=== PATIENT | female | born 1930 | race Caucasian/White ===

== ENCOUNTER 2016-10-18 07:42 | Emergency (ER) | payer MEDICARE, OTHER ==
[~2016-10-18] VITALS: Ht 162.6 cm; Wt 59.9 kg
[~2016-10-18 07:42] MED LIST: ALENDRONATE SOD70 MG PO; CHERATUSSIN AC S5 ML PO; FOSAMAX70 MG PO; GLUCOS-CHOND 51 EACH PO; KLOR-CON 1010 MEQ PO; LAXATIVE FEMININ5 MG PO; MACROBID 100 M100 MG PO; NORCO 5-325 TA1 EACH PO; ONDANSETRON ODT4 MG SL; PRAVACHOL10 MG PO; PRAVACHOL20 MG PO; PRAVASTATIN SOD20 MG PO; PRILOSEC20 MG PO; RANITIDINE HCL150 MG PO; ROXICET 5-3251 EACH PO; SERTRALINE HCL100 MG PO; SERTRALINE HCL25 MG PO; TENORMIN25 MG PO; TESSALON PERLE100 MG PO; TRAZODONE HCL50 MG PO; ZOFRAN ODT4 MG SL
[2016-10-18] MEDS ORDERED: CALCIUM + D SO1 EACH PO (08:00)
[2016-10-18] MEDS ORDERED: MULTIVITAMINS1 EAC7 PO (08:01)
[2016-10-18] MEDS ORDERED: TYLOPHEN500 MG PO (08:03)
[2016-11-09] MEDS ORDERED: BACTRIM DS TAB1 EACH PO (16:05)
== END 2016-10-18 09:44 | disposition home or self-care (01) ==
LOC: ED 07:42
DX: R26.2 Difficulty in walking, not elsewhere classified (principal); Z76.89 Persons encountering health services in other specified circumstances; I10 Essential (primary) hypertension; Z90.49 Acquired absence of other specified parts of digestive tract; Z88.8 Allergy status to other drugs, medicaments and biological substances; Z79.899 Other long term (current) drug therapy; Z85.048 Personal history of other malignant neoplasm of rectum, rectosigmoid junction, and anus
CPT/HCPCS: 70450; 80053; 81001; 85025; 99284

== ENCOUNTER 2016-10-19 11:45 | Emergency (ER) | payer MEDICARE, OTHER ==
[~2016-10-19] VITALS: Ht 162.6 cm; Wt 59.9 kg
[~2016-10-19 11:45] MED LIST changes: +CALCIUM + D SO1 EACH PO; +MULTIVITAMINS1 EAC7 PO; +TYLOPHEN500 MG PO
[2016-11-09] MEDS ORDERED: BACTRIM DS TAB1 EACH PO (16:05)
== END 2016-10-19 13:52 | disposition home or self-care (01) ==
LOC: ED 11:45
DX: R20.0 Anesthesia of skin (principal); R64 Cachexia; Z85.048 Personal history of other malignant neoplasm of rectum, rectosigmoid junction, and anus; I10 Essential (primary) hypertension; Z90.49 Acquired absence of other specified parts of digestive tract; Z88.6 Allergy status to analgesic agent; Z88.8 Allergy status to other drugs, medicaments and biological substances; Z98.890 Other specified postprocedural states; Z79.899 Other long term (current) drug therapy
CPT/HCPCS: 72100; 73590; 99283

== ENCOUNTER 2016-11-23 08:19 | Emergency (ER) | payer MEDICARE, OTHER ==
[~2016-11-23] VITALS: Ht 162.6 cm; Wt 59.9 kg
[~2016-11-23 08:19] MED LIST changes: +BACTRIM DS TAB1 EACH PO
[2016-11-23] MEDS ORDERED: ZOFRAN ODT4 MG PO (11:28)
[2016-11-24] MEDS ORDERED: PROMETHAZINE HC25 M1 PO (17:12)
== END 2016-11-23 11:43 | disposition home or self-care (01) ==
LOC: ED 08:19
DX: R11.0 Nausea (principal); E86.0 Dehydration; I10 Essential (primary) hypertension; Z85.048 Personal history of other malignant neoplasm of rectum, rectosigmoid junction, and anus; Z90.49 Acquired absence of other specified parts of digestive tract; Z88.6 Allergy status to analgesic agent; Z88.8 Allergy status to other drugs, medicaments and biological substances; Z98.890 Other specified postprocedural states
CPT/HCPCS: 80053; 81001; 85025; 96360; 99283; J7030

== ENCOUNTER 2016-11-24 12:33 | Emergency (ER) | payer MEDICARE, OTHER ==
[~2016-11-24] VITALS: Ht 162.6 cm; Wt 59.9 kg
[~2016-11-24 12:33] MED LIST changes: +ZOFRAN ODT4 MG PO
[2016-11-24] MEDS ORDERED: PROMETHAZINE HC25 M1 PO (17:12)
== END 2016-11-24 17:32 | disposition home or self-care (01) ==
LOC: ED 12:33
DX: R10.9 Unspecified abdominal pain (principal); R11.2 Nausea with vomiting, unspecified; I10 Essential (primary) hypertension; Z90.49 Acquired absence of other specified parts of digestive tract; Z90.89 Acquired absence of other organs; Z88.6 Allergy status to analgesic agent; Z88.8 Allergy status to other drugs, medicaments and biological substances
CPT/HCPCS: 74177; 99284; Q9967

== ENCOUNTER 2016-12-27 13:44 | Emergency (ER) | payer MEDICARE, OTHER ==
[~2016-12-27] VITALS: Ht 162.6 cm; Wt 53.5 kg
[~2016-12-27 13:44] MED LIST changes: +PROMETHAZINE HC25 M1 PO
== END 2016-12-27 16:15 | disposition home or self-care (01) ==
LOC: ED 13:44
DX: R10.32 Left lower quadrant pain (principal); Z85.048 Personal history of other malignant neoplasm of rectum, rectosigmoid junction, and anus; I10 Essential (primary) hypertension; Z90.49 Acquired absence of other specified parts of digestive tract; Z79.82 Long term (current) use of aspirin; Z98.890 Other specified postprocedural states; Z79.899 Other long term (current) drug therapy; Z88.6 Allergy status to analgesic agent; Z88.8 Allergy status to other drugs, medicaments and biological substances
CPT/HCPCS: 80053; 81001; 83690; 85025; 85610; 85730; 96374; 99283; J2405

== ENCOUNTER 2017-02-01 09:27 | Emergency (ER) | payer MEDICARE, OTHER, MEDICAID ==
[~2017-02-01] VITALS: Ht 162.6 cm; Wt 51.3 kg
[2017-02-01] MEDS ORDERED: ULTRAM50 MG PO (10:28)
[2017-02-01] MEDS ORDERED: SERTRALINE HCL100 MG PO (10:29)
[2017-02-01] MEDS ORDERED: VENLAFAXINE HC150 MG PO (10:29)
[2017-02-01] MEDS ORDERED: ZOFRAN4 MG PO (11:01)
== END 2017-02-01 11:10 | disposition home or self-care (01) ==
LOC: ED 09:27
DX: K59.09 Other constipation (principal); Z85.048 Personal history of other malignant neoplasm of rectum, rectosigmoid junction, and anus; Z88.6 Allergy status to analgesic agent; Z90.49 Acquired absence of other specified parts of digestive tract; I10 Essential (primary) hypertension; Z79.899 Other long term (current) drug therapy
CPT/HCPCS: 74020; 99284

== ENCOUNTER 2017-02-14 11:37 | Observation (INO) | payer MEDICARE, OTHER, MEDICAID ==
[~2017-02-14] VITALS: Ht 162.6 cm; Wt 51.3 kg
[~2017-02-14 11:37] MED LIST changes: +ULTRAM50 MG PO; +VENLAFAXINE HC150 MG PO; +ZOFRAN4 MG PO
--- NOTE | 2017-02-14 19:29 | NUR ---
PATIENT TO FLOOR FROM ED, ADMIT FOR PT/OT. PATIENT FX RIGHT PLATELLER IN GLF ATTEMPTING TO GET IN TAXI. RIGHT KNEE NOW IN A BRACE. TYLENOL FOR PAIN CONTROL. VS STABLE. FULL ADMISSION DONE. PATIENT STATES " I AM NOT HUNGRY, I JUST WANT MY TYLENOL AND GO TO SLEEP". HANDOFF TO SHARON CHARGE NURSE.
--- NOTE | 2017-02-14 19:32 | NUR ---
MEDICATED WITH TYLENOL 650MG PO C/O 11/04 R KNEE PAIN
--- NOTE | 2017-02-14 22:10 | NUR ---
UP TO BSC USING 2 STAFF. VOIDED, TOLERATED WELL. L KNEE BRACE IN PLACE, COOP AND APPROPRIATE WITH TRANSFERS, NO FURTHER C/O PAIN.
--- NOTE | 2017-02-14 22:21 | NUR ---
HELPED PT'S RN GET HER TO THE BEDSIDE COMMODE. SHE DID VERY WELL WITH BOTH OF US HELPING HER. CHARTED HER OUTPUT. DID VERY WELL GETTING BACK TO BED WELL WITH HELP. PT RESTING COMFORTABLE. CALL LIGHT AND BEDSIDE TABLE WITHIN REACH.
--- NOTE | 2017-02-15 00:12 | NUR ---
medicated with 2 tylenol 325mg each. c/o left knee pain. up to bscm with 2 person assist. voided. back to bed tolerated well.L knee brace in place
--- NOTE | 2017-02-15 00:26 | NUR ---
HELPED PT'S RN GET HER TO THE BEDSIDE COMMODE. SHE DID VERY WELL. GOT HER BACK TO BED AND AGAIN DID VERY WELL. CHARTED URINE MEASUREMENT. PT IS RESTING COMFORTABLE. CALL LIGHT AND BEDSIDE TABLE IN REACH.
--- NOTE | 2017-02-15 03:21 | NUR ---
HELPED PT'S RN GET HER TO THE BEDSIDE COMMODE. SHE URINATED 200M. WE GOT HER BACK TO BED. SHE NEEDED NO OTHER ASSISTANCE AT THIS TIME. CALL LIGHT AND BEDSIDE TABLE WITHIN REACH.
--- NOTE | 2017-02-15 05:26 | NUR ---
HELPED RN GET PT ON BEDSIDE COMMODE. GOT HER BACK INTO BED. MEASURED URINE AND CHARTED IT. PT SAYS SHE DOES NOT NEED ANYTHING AT THIS TIME. CALL LIGHT AND BEDSIDE TABLE IN HER REACH.
--- NOTE | 2017-02-15 05:35 | NUR ---
Pt currently in bed, eyes closed, resting, no resp distress. bed alarm on, high fall risk precautions. SL intact/patent. Has been medicated 2x per c/o left knee pain, good cms, left knee brace inplace. Pt requires 2 person assist to get up, very cooperative with procedures, alert and follows instructions well. Using call light w/o problems
--- NOTE | 2017-02-15 08:00 | NUR ---
PATIENT UP 2 PERSON ASSIST WITH WALKER TO BS, NEEDS ENCOURAGEMENT. VOIDING WELL. BRACE IN PLACE. LUNG SOUNDS CLEAR. FULL BODY ASSESMENT DONE. PLAN TO WORK WITH PHYSICAL THERAPY AND HAVE EVALUATION DONE TODAY.
--- NOTE | 2017-02-15 08:10 | NUR ---
PATIENT IS EATING BREAKFAST. SHOWER PATIENT LATER TODAY.
--- NOTE | 2017-02-15 10:00 | NUR ---
PATIENT UP TO BSC, LARGE FORMED BOWEL MOVEMENT. ADMINISTERED SUPPOSITORY. TOLERATED BSC WELL. RATES PAIN 6/10 ON PAIN SCALE. STATES " THE TYLENOL HOLDS ME OVER". PROVIDED PATIENT WITH VANTHAO GAGE.
--- NOTE | 2017-02-15 11:55 | NUR ---
PHYSCIAL THERAPY EVAL DONE. PHYSICAL THERAPY REPORTS PAIN OUT OF CONTROL, HOWERVER PATIENT AMBULATED IN ROOM. RECCOMENDS SNF AT DISCHARGE FOR FURTHER STRENGTHENING. UNSAFE TO GO HOME AND LIVE ALONE. .
--- NOTE | 2017-02-15 13:38 | NUR ---
I WAS REQUESTED BY [facility] TO VISIT PT. I FOUND PT TO BE DISCOURAGED, CONFUSED AND BLAMING GOD FOR HER FALL. SHE WAS CONFUSED ABOUT HOW HER FALL HAPPENED, WHO SHE WAS WITH AND THE LOCATION OF THE INJURY. SEE SEEMED IN GREAT PAIN, SEEMED PLEASED THAT I STOPPED BY. SHE TOLD ME THAT SOMEONE ELSE TOLD HER GOD WAS NOT PUNISHING HER, THAT ACCIDENTS HAPPEN TO EVERYONE. SHE TALKED, SHE SEEMED TO BE MORE ACCEPTING. I PRAYED FOR PT, SHE THANKED ME, WILL FOLLOW NEEDED
--- NOTE | 2017-02-15 14:45 | NUR ---
TALKED WITH PT SON WYATT, EXPLAINED THAT HIS MOTHER WAS IN AN OBSERVATION BED AND THAT TECHNICALLY MEDICARE COULD SAY THEY MAY NOT PAY ANYTHING AFTER SHE IS HERE FOR 48 HOURS SHE DOES NOT HAVE A MEDICAL NECESSITY TO BE AN INPT IN THE HOSPITAL. HE STATED UNDERSTANDING AND TOLD ME THEY ARE ATTEMPTING TO FIGURE OUT WHAT THEY ARE GOING TO DO TO HELP MOM OUT.
--- NOTE | 2017-02-15 15:05 | NUR ---
PT SIGNED THE [facility] LETTER AFTER REVIEWING IT WITH ME AND THEN HAVING ME CALL HER SON AND REVIEWED IT PARTIALLY WITH HIM, HE AT THAT POINT SAID IF SHE REVIEWED IT SHE COULD SIGN IT. PT PROVIDED WITH A COPY OF LETTER AND ORIGINAL PLACED IN PT CHART.
--- NOTE | 2017-02-15 16:31 | NUR ---
CLIFF HELPED ME GET HER READY AND INTO THE SHOWER AND MARTHA HELPED ME GET HER OUT OF THE SHOWER. NOW PATIENT IS SITTING UP IN HER CHAIR WAITING FOR DINNER.
--- NOTE | 2017-02-15 18:48 | NUR ---
PATIENT HAD PHYSICAL THERAPY EVALUATION, TOLERATED WELL. TOE-TOUCH TOLERATED. MULTIBPLE BOWEL MOVEMENTS THROUGHUT DAY, VOIDING WELL. TYLENOL MANAGING PAIN WELL. PATIENT EATS SMALL AMOUNTS AT A TIME. BRACE TO BE ON AT ALL TIMES.
--- NOTE | 2017-02-15 19:15 | NUR ---
BEDSIDE REPORT RECEIVED FROM OFF GOING RN. PT RESTING IN BED, DENIES NEEDS AT THIS TIME.
--- NOTE | 2017-02-15 19:28 | NUR ---
WHITEBOARD UPDATED, PATIENT IN BED DOING WELL. ROOM TIDIED.
--- NOTE | 2017-02-15 19:47 | NUR ---
Pt declines Senokot tabs due to frequwncy of loose angie this am/pm. Pt c/o left knee area pain, medicated with tylenol 650mg po. breace in place. IV site left hand not patent, occluded, will restart. pt aware.
--- NOTE | 2017-02-15 19:54 | NUR ---
Dr Grant notified of iv not patent, new orders to dc obtained
--- NOTE | 2017-02-15 20:26 | NUR ---
up to bsc 2 person assist, pt helped more and appears stronger and more steady than yesterday or earlier this am. tolerated well
--- NOTE | 2017-02-15 20:35 | NUR ---
had a soft bm, voided too, back to bed, tolerated well. left leg in place, good cms. improved gait, 2 person assist. Pain med effective, denies any further c/o pain
--- NOTE | 2017-02-15 20:40 | NUR ---
PT UP TO USE BSC WITH 2 PA. PT HAVING LOOSE STOOL. PT ASSISTED BACK TO BED. PT ASSESSMENT COMPLETE. KNEE BRACE IN PLACE. TRACE EDEMA NOTED TO LLE. CMS INTACT. PT DENIES NEEDS AT THIS TIME. CALL LIGHT WITHIN REACH, BED ALARM ACTIVATED.
--- NOTE | 2017-02-15 22:30 | NUR ---
PATIENT STATES SHE NEEDS BED RAIL DOWN BECAUSE IT IS TOUCHING HER. INSTEAD MOVED HER MORE TO THE CENTER OF BED. BED ALARM ON.
--- NOTE | 2017-02-15 23:17 | NUR ---
PT UTILIZES CALL LIGHT, STATES THAT SHE IS WORRIED ABOUT HER KIDS. REASSURANCE PROVIDED. PT STATES THAT SHE "LOST HER SOCK" ASSISTED PT TO PLACE SOCK BACK ON. ENCOURAGED PT TO TRY TO SLEEP. PT STATES AGREEMENT. CALL LIGHT WITHIN PT'S REACH, PT DENIES FURTHER NEEDS.
--- NOTE | 2017-02-16 01:10 | NUR ---
PT RESTING IN BED WITH MASK OVER HER EYES. PT'S HANDS FIDGETING, RUBBING COLLAR BONE AREA. RESPIRATIONS ARE EVEN AND UNLABORED. CALL LIGHT WITHIN PT'S REACH.
--- NOTE | 2017-02-16 01:55 | NUR ---
PATIENT CALLED REPEATEDLY ABOUT GETTING LIGHTS TURNED OFF AT NURSE'S STATION, CONTINUING TO EXPLAIN THAT IT ISN'T POSSIBLE. GOT PATIENT EYE MASK, NOT SUFFICIENT.
--- NOTE | 2017-02-16 02:52 | NUR ---
UP TO BSC WITH 2 PERSON ASSIST, MUCH IMPROVED GAIT AND TOLERANCE THAN YESTERDAY. VOIDED AND HAD SMALL YELLOW COLORED SOFT BM. BACK TO BED, LEG BRACE IN PLACE, GOOD CMS. NO C/O PAIN. EYE MASK GIVEN PT C/O HALLWAY LIGHTS BOTHER HER. WILL REASSESS
--- NOTE | 2017-02-16 03:11 | NUR ---
PT ASSESSMENT COMPLETE. PT DENIES PAIN, NAUSEA, OR SOB. KNEE IMMOBILIZER IN PLACE FOR L KNEE. TRACE EDEMA PRESENT TO LLE. CMS INTACT TO BLES. PT STATES THAT SHE "HAD A BAD NIGHT." UNABLE TO ELABORATE. PT ENCOURAGED TO TRY TO GET SOME MORE SLEEP, PT AGREES. PT ASSISTED TO PUT EYE MASK ON, DENIES OTHER NEEDS AT THIS TIME. CALL LIGHT WITHIN REACH. BED ALARM ACTIVATED.
--- NOTE | 2017-02-16 04:06 | NUR ---
PT RESTING IN BED WITH EYES CLOSED. PT CONTINUES TO FIDGET HANDS. RESPIRATIONS EVEN AND UNLABORED. CALL LIGHT WITHIN REACH.
--- NOTE | 2017-02-16 04:44 | NUR ---
up to bsc, voided clear yellow urine and small soft bm. back to bed c/o l knee area pain, [address] medicated with tylenol 650mg
--- NOTE | 2017-02-16 05:03 | NUR ---
PT RESTLESS THROUGHOUT THE SHIFT. TYLENOL X 2 FOR PAIN TO L KNEE. L KNEE BRACE/IMMOBILIZER IN PLACE, NOT TO BE REMOVED. 1-2 PA TO BSC, PIVOT TRANSFER, NO WEIGHT BEARING TO L EXTREMITY. ALERT, CONFUSED AT TIMES. PT USING CALL LIGHT FREQUENTLY. NO IV ACCESS.
--- NOTE | 2017-02-16 06:23 | NUR ---
NURSE IN ROOM
--- NOTE | 2017-02-16 06:30 | NUR ---
PT UP TO BSC WITH 1 PA AND FWW. PT CONTINUES TO HAVE SOFT STOOL. REPORTS THAT NAUSEA IS WELL CONTROLLED AT THIS TIME. PT WONDERS IF THE DOCTOR WILL COME TO SEE HER TODAY, PT REASSURED THAT DOCTOR WOULD SEE HER LATER. PT ASKING ABOUT HER KIDS, STATES SHE HAS NOT TALKED TO THE IN "DAYS". EXPLAINED TO PT THAT [facility] HAVE BEEN IN CONTACT WITH HER KIDS. PT STATES UNDERSTANDING. PT ASSISSTED BACK TO CHAIR, PILLOW PLACED BEHIND PT'S BACK. CHAIR ALARM IN PLACE. PT STATES THAT SHE IS COMFORTABLE. DENIES OTHER NEEDS AT THIS TIME. CALL LIGHT WITHIN REACH.
--- NOTE | 2017-02-16 07:20 | NUR ---
BEDSIDE HANDOFF REPORT RECEIVED FROM SUPPLY CHAIN DIRECTOR RN. PT SITTING IN CHAIR. PT DENIES NEEDS AT THIS TIME.
--- NOTE | 2017-02-16 08:10 | NUR ---
pt is sitting up in the chair. pt refused breafast tray that was delivered and is requesting scrambed eggs. no other requests at this time.
--- NOTE | 2017-02-16 09:00 | NUR ---
PT RESTING IN BED. PT RATING PAIN 7/10 TO LEFT KNEE. PT ON ROOM AIR, LUNG SOUNDS CLEAR. BOWEL TONES ACTIVE, POOR APPETITE, AT BASELINE. PT WITH LEG BRACE TO LEFT LEG, 2+ EDEMA TO LOWER LEG, NO EDEMA NOTED TO RIGHT LEG, CMS INTACT. PT UP WITH ASSISTANCE X1 WITH FWW. PT ANXIOUS, DISCUSSED PLAN OF CARE WITH PT. PT DENIES OTHER NEEDS AT THIS TIME.
--- NOTE | 2017-02-16 09:10 | NUR ---
CALL DAUGHTER IN LAW [place] TO NOTIFY OF DISCHARGE, VICENTA STATED "WE ARE NOT BRINGING HER HERE, WE DO NOT HAVE ROOM FOR HER HERE". DISCUSSED THAT IT WAS DISCUSSED THAT SHE WAS UNSAFE TO DISCHARGE HOME ALONE. TO CALL ELECTROLYTIC ETCHER TO DISCUSS PLAN OF CARE.
--- NOTE | 2017-02-16 09:20 | NUR ---
DISCUSSED WITH PART TIME RECEPTIONIST THAT SON PEGGY HAD AGREED TO DISCHARGE HOME WITH HIM, SPOKE WITH DAUGHTER IN LAW [place] ABOUT PLAN, AGREEABLE WITH PLAN. FAMILY TO COME TO PROVIDED TRANSPORTATION FOR DISCHARGE. PHYSICAL THERAPIST WORKING WITH PT.
--- NOTE | 2017-02-16 10:11 | NUR ---
PT COMPLAINT OF NAUSEA, PROVIDED CRACKERS AND LEMON SODA. PT SITTING IN WHEEL CHAIR, AWAITING FAMILY FOR DISCHARGE.
--- NOTE | 2017-02-16 10:42 | NUR ---
pt is sitting up in a wheelchair in her room. pt is waiting for her family to show up so she can discharge. no other requests at this time.
== END 2017-02-16 11:20 | disposition home or self-care (01) ==
LOC: ED 11:37 → MS 11:39
PROVIDERS: ADMIT Internal Medicine
DX: S82.002A Unspecified fracture of left patella, initial encounter for closed fracture (principal); I10 Essential (primary) hypertension; M19.90 Unspecified osteoarthritis, unspecified site; K59.09 Other constipation; R53.81 Other malaise; V48.4XXA Person boarding or alighting a car injured in noncollision transport accident, initial encounter; Z79.899 Other long term (current) drug therapy; Z85.048 Personal history of other malignant neoplasm of rectum, rectosigmoid junction, and anus; Z88.8 Allergy status to other drugs, medicaments and biological substances; R29.6 Repeated falls
CPT/HCPCS: 71010; 73502; 73560; 80053; 81001; 85025; 87088; 96360; 96372; 97110; 97162; 97165; 97530; 99285; G0378; G8978; G8979; G8987; G8988; J1650; J7030

== ENCOUNTER 2018-03-23 14:44 | Emergency (ER) | payer MEDICARE, OTHER ==
[~2018-03-23] VITALS: Ht 157.5 cm; Wt 60.3 kg
--- OUTSIDE RECORDS SUMMARY | 2018-03-23 14:46 | XMS ---
PreManage Notification: TATYANA ROLAND Security Retail Receiving Clerk Events No recent Security Events currently on file CRITERIA MET - Group Notification CARE PROVIDERS RYANNE BECERRA [facility] 12/25/2017-Current PHONE: [phone] Bentley Guadalupe Fitting Room Associate/Chief Load Dispatcher 01/25/2018-Current PHONE: [phone] Bentley Guadalupe Primary Care 01/25/2018-Current PHONE: [phone] Derek Zamorano MD PHONE: Unknown Roland has no Care Guidelines for this patient. Ruel VISIT COUNT (12 MO.) 3 MELISSA De La Rosa TOTAL 3 NOTE: Visits indicate total known visits. 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
[2018-03-23] MEDS ORDERED: MISOPROSTOL200 MCG PO (15:09)
[2018-03-23] MEDS ORDERED: SERTRALINE HCL100 MG PO (15:09)
== END 2018-03-23 16:56 | disposition home or self-care (01) ==
LOC: ED 14:44
DX: N93.9 Abnormal uterine and vaginal bleeding, unspecified (principal); I10 Essential (primary) hypertension; G30.9 Alzheimer's disease, unspecified; Z87.891 Personal history of nicotine dependence; Z90.49 Acquired absence of other specified parts of digestive tract; Z88.6 Allergy status to analgesic agent; Z88.8 Allergy status to other drugs, medicaments and biological substances; Z79.899 Other long term (current) drug therapy
CPT/HCPCS: 36415; 80053; 85025; 99284

== ENCOUNTER 2018-06-14 09:11 | Emergency (ER) | payer MEDICARE, OTHER ==
[~2018-06-14] VITALS: Ht 157.5 cm; Wt 60.3 kg
--- OUTSIDE RECORDS SUMMARY | ~2018-06-14 | XMS | Clinical Summary ---
Demographics + + + | Address | [address] | | | [place] [address] | + + + | Home Phone [...] + | Author | [facility] | | | and Valer[place] | + + + | Organization | [facility] | | | and [...] [place], | | | | | [place] [address] | | + + + + + | Rahul Love Sr | ECON | [address] | | | | | [place] | | | | | [address] | | + + + + + Care Team Providers + +------+ + | Care Real Estate Internship Name | Role | Phone | + +------+ + | John Del Cid MD | PP | | + +------+ + Allergies + [...] + +---------+ + | Alcohol Use | Drinks/We | oz/Week | Comments | | | ek | | | + + +---------+ + | No [...] Filed Vital Signs + + + + | Vital Sign | Reading | Time Taken | + + + + | Blood Pressure | 145/65 | 10/10/20132108 PDT | + + + + | Pulse | 92 | 10/10/20132108 PDT | + + + + | Temperature | 37.3 C (99.1 F) | 10/10/20131930 PDT | + + + + | Respiratory Rate | 14 | 10/10/20132108 PDT | + + + + | Oxygen Saturation | 98% | 10/10/20132108 PDT | + + + + | Inhaled Oxygen | - | - | | Concentration | | | + + + + | Weight | 54.9 kg (121 lb) | 10/10/20131930 PDT | + + + + | Height | 162.6 cm (5' 4") | 10/10/20131930 PDT | + + + + | Body Mass Index | 20.77 | 10/10/20131930 PDT | + + + + Plan of Treatment + + + + + | Health Maintenance | Due Date | Last Done | Comments | + + + + + | Vaccine: | | | | | Dtap/Tdap/Td (1 - | 1 | | | | Tdap) | | | | + + + + + | Vaccine: Zoster (1 | | | | | of 2) | 2 | | | + + + + + | Vaccine: | | | | | Pneumococcal 65+ | 7 | | | | Low/Medium Risk (1 | | | | | of 2 - PCV13) | | | | + + + + + | Vaccine: Influenza | | | | | (Season Ended) | 9 | | | + + [...] +--------+ +---------+--------+ | MEDICARE | MEDICA | [id number] | 06/25/18 | [phone] | | Medica | | | RE | | 97-Pre | 5 | | re | | | PART A | | sent | | | | | | AND B | | | | | | + +--------+ +--------+ +---------+--------+ | COMMERCIAL GENERIC | BH | [id number] | | | | Indemn | | [...] | [birth year] | | [address] | | | al/Krishna | | 1931 | [phone] | [place] [address] | | | danielle | | | 5 (Home) | | + +--------+ +--------+ + + Advance Directives Patient has advance care planning documents on file. For more information, please contact:[facility] [place] [address]
--- OUTSIDE RECORDS SUMMARY | ~2018-06-14 | XMS | Clinical Summary ---
Demographics + + + | Address | [address] | | | [place] [address] | + + + | Home Phone [...] + + | Author | [facility] | | | and [place] | + + + | Organization | [facility] | | | and [place] [...] [place], | | | | | [place] [address] | | + + + + + | Rahul Love Sr | ECON | [address] | | | | | [place] | | | | | [address] | | + + + + + Care Team Providers + +------+ + | Care Computer Operations Manager Name | Role | Phone | [...] +--------+ +---------+--------+ | MEDICARE | MEDICA | [id number] | 06/25/18 | [phone] | | Medica | | | RE | | 97-Pre | 5 | | re | | | PART A | | sent | | | | | | AND B | | | | | | + +--------+ +--------+ +---------+--------+ | COMMERCIAL GENERIC | BH | [id number] | | | | Indemn | | [...] | | al/Krishna | | 1931 | [phone] | [place] [address] | | | danielle | | | 5 (Home) | | + +--------+ +--------+ + + Advance Directives Patient has advance care planning documents on file. For more information, please contact:[facility] [place] [address]
[~2018-06-14 09:11] MED LIST changes: +MISOPROSTOL200 MCG PO
--- OUTSIDE RECORDS SUMMARY | 2018-06-14 09:14 | XMS ---
PreManage Notification: TATYANA ROLAND Security Breakfast Manager Events No recent Security Events currently on file CRITERIA MET - Group Notification CARE PROVIDERS RYANNE BECERRA [facility] 12/25/2017-Current PHONE: [phone] Bentley Guadalupe Acetylene Torch Operator/Gas Examiner 01/25/2018-Current PHONE: [phone] Bentley Guadalupe Acetylene Torch Operator/Gas Examiner 01/25/2018-Current PHONE: [phone] Bentley Guadalupe Primary Care 01/25/2018-Current PHONE: [phone] Deerk Zamorano MD PHONE: Unknown Roland has no Care Guidelines for this patient. Ruel VISIT COUNT (12 MO.) [address] [facility] TOTAL 4 NOTE: Visits indicate total known visits. 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 - Alzheimer's disease, unspecified - Abnormal uterine and vaginal bleeding, unspecified - Allergy status to analgesic agent status 01/22/2018 11:33 MELISSA Antonio [place] TYPE: Emergency COMPLAINT: - ABD PAIN DIAGNOSES: - Allergy status to other drugs, medicaments and biological substances status - Essential (primary) hypertension - Other longterm (current) drug therapy - Constipation, unspecified 12/25/2017 08:12 MELISSA [place] TYPE: Emergency COMPLAINT: - ABD PAIN DIAGNOSES: - Essential (primary) hypertension - Other longterm (current) drug therapy - Constipation, unspecified INPATIENT VISIT TRACKING (12 MO.) No inpatient visits to display in this time frame [id number]
== END 2018-06-14 13:39 | disposition home or self-care (01) ==
LOC: ED 09:11
DX: R10.30 Lower abdominal pain, unspecified (principal); I10 Essential (primary) hypertension; G30.9 Alzheimer's disease, unspecified; Z87.891 Personal history of nicotine dependence; Z90.49 Acquired absence of other specified parts of digestive tract; Z88.6 Allergy status to analgesic agent; Z88.8 Allergy status to other drugs, medicaments and biological substances; Z79.899 Other long term (current) drug therapy
CPT/HCPCS: 74177; 80053; 81001; 83690; 85025; 87088; 96360; 99284-25; J7040; Q9967

== ENCOUNTER 2019-01-05 15:52 | Emergency (ER) | payer MEDICARE, OTHER ==
[~2019-01-05] VITALS: Ht 157.5 cm; Wt 61.7 kg
--- OUTSIDE RECORDS SUMMARY | 2019-01-05 15:56 | XMS ---
PreManage Notification: TATYANA ROLAND Security Manifest/Order Organizer Print Orders Events No recent Security Events currently on file CRITERIA MET - DURGAP CARE PROVIDERS RYANNE BECERRA [facility] 12/25/2017-Current PHONE: [phone] Bentley Guadalupe Furnace Attendant/Residential Solar Sales Consultant 06/23/2018-Current PHONE: [phone] Bentley Guadalupe Primary Care 06/23/2018-Current PHONE: [phone] Derek Zamorano MD PHONE: Unknown Roland has no Care Guidelines for this patient. Ruel VISIT COUNT (12 MO.) 4 MELISSA De La Rosa TOTAL 4 NOTE: Visits indicate total known visits. ED/UCC VISIT TRACKING (12 MO.) 01/05/2019 15:53 MELISSA Antonio [place] TYPE: Emergency COMPLAINT: - RECTAL BLEEDING 06/14/2018 09:12 MELISSA Antonio [place] TYPE: Emergency COMPLAINT: - ABD PAIN DIAGNOSES: - Alzheimer's disease, unspecified - Allergy status to analgesic agent status - Allergy status to oth drug/meds/biol subst status - Acquired absence of other specified parts of digestive tract - Personal history of nicotine dependence - Essential (primary) hypertension - Other mcc (current) drug therapy - Lower abdominal pain, unspecified 03/23/2018 14:45 MELISSA Antonio [place] TYPE: Emergency COMPLAINT: - RECTAL BLEEDING DIAGNOSES: - Acquired absence of other specified parts of digestive tract - Essential (primary) hypertension - Personal history of nicotine dependence - Allergy status to oth drug/meds/biol subst status - Hemorrhage of anus and rectum - Other server administrator (current) drug therapy - Alzheimer's disease, unspecified - Abnormal uterine and vaginal bleeding, unspecified - Allergy status to analgesic agent status 01/22/2018 11:33 MELISSA Antonio [place] TYPE: Emergency COMPLAINT: - ABD PAIN DIAGNOSES: - Allergy status to oth drug/meds/biol subst status - Essential (primary) hypertension - Other mcc (current) drug therapy - Constipation, unspecified INPATIENT VISIT TRACKING (12 MO.) No inpatient visits to display in this time frame [id number]
== END 2019-01-05 18:11 | disposition home or self-care (01) ==
LOC: ED 15:52
DX: K62.5 Hemorrhage of anus and rectum (principal); I10 Essential (primary) hypertension; Z87.891 Personal history of nicotine dependence; Z88.8 Allergy status to other drugs, medicaments and biological substances; Z88.6 Allergy status to analgesic agent; Z79.899 Other long term (current) drug therapy
CPT/HCPCS: 80053; 85025; 85610; 85730; 86850; 86900; 86901; 99283

== ENCOUNTER 2019-02-20 22:25 | Inpatient (IN) | payer MEDICARE, OTHER ==
[~2019-02-20] VITALS: Ht 157.5 cm; Wt 58.9 kg
--- OUTSIDE RECORDS SUMMARY | ~2019-02-20 | XMS | Encounter Summary ---
Demographics + + + | Address | [address] | | | [place] [address] | + + + | Home Phone | | + + + | Preferred Language | Unknown | + + + | Marital Status | | + + + | Jain Affiliation | 1077 | + + + | Race | Unknown | + + + | Ethnic Group | Unknown | + + + Author + + + | Author | [facility] | | | and [place] | + + + | Organization | [facility] | | | and [place] | + + + | Address | Unknown | + + + | Phone | Unavailable | + + + Support + + + + + | Name | Relationship | Address | Phone | + + + + + | Scar Deleon | ECON | [address] | | | | | [place], | | | | | [place] [address] | | + + + + + | Rahul Love . | ECON | [address] | | | | | [place] | | | | | [address] | | + + + + + Care Team Providers + +------+ + | Care Irrigator Sprinkling System Name | Role | Phone | + +------+ + PCP | Unavailable | + +------+ + Encounter Details +--------+ + + + + | Date | Type | Department | Care Team | Description | +--------+ + + + + | 08/14/ | Hospital | [facility] | Emanuel Huang | | | 2011 - | Encounter | [facility] CTR [facility] | MD Scar [address] | | | | | [place] [address] | [place] | | | 08/24/ | | [place], [place] | [place] [address] | | | 2011 | | [address] | [phone] | | | | | [phone] | | | +--------+ + + + + Social History + +-------+ +--------+------+ | Tobacco Use | Types | Packs/Day | Years | Date | | | | | Used | | + +-------+ +--------+------+ | Never Assessed | | | | | + +-------+ +--------+------+ + + + | Sex Assigned at | Date Recorded | | | | + + + | Not on file | | + + + + + + + | Job Start Date | Occupation | Industry | + + + + | Not on file | Not on file | Not on file | + + + + + + + + | Travel History | Travel Start | Travel End | + + + + + + | No recent travel history available. | + + documented as of this encounter Progress Notes Baldomero York MD - 08/15/2011 12:42 AM PDTDATE: 08/15/2011 RADIATION ONCOLOGY FOLLOWUP NOTE DIAGNOSIS Anal canal squamous cell carcinoma. FOLLOWUP NOTE: Ms. 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 The patient di d receive 4500 cGy to the regional lymphatics followed by a boost to the anal canal for a t otal dose of 6120 cGy completin g those treatments in 01/2008. The patient does come in [facility] for regular followup. Mariama states that she has done well since we last saw her. She has not had any bleeding in the las t several months. She denies any diarrhea or any discomfort in the area. She de nies any difficulties with urination. She does continue to use anal dilator because of sten osis. PHYSICAL EXAMINATION VITAL SIGNS: Blood pressure 116/66, pulse 72, temperature 37.1 deg C, weight 57.4 kg. GENERAL: The patient is awake, alert and oriented in no apparent distress. LUNGS: Clear to auscultation. HEART: Regular rate and rhythm. ABDOMEN: Soft, nontender, nondistended. No inguinal adenopathy appreciated bilaterally. RECTAL EXAM: The patient did have telangiectasias in the perianal region. She does have philippe stenosis . She did not have any palpable abnormalities of the anus or anal canal or dista l rectum. ASSESSMENT AND PLAN: Ms. Mariama Love is 3 1/2 years out from completion of her adjuvant r adiation t herapy for treatment of her anal canal squamous cell carcinoma. At this time, th ere is no clinical ev idence of recurrence of disease and overall the patient is doing well . She states she does see Dr. Shekhar grimes, her surgeon, 3-4 times per year and does ask if we ca n spread out our appointments even further. I did state that as long as she is seeing Dr. Mahogany lora who is performing a good clinical exam then we c an see her annually. The patient will return in 1 year for further followup. DICTATED BY: Baldomero York MD Radiation Oncology JOB #: [id number] EXT JOB #:[id number] cc: MD Emanuel Sagastume MD Dr. Andrew Bower [place] <Electronically Signed by Baldomero York MD> 09/02/11 1013 documented in this encounter Plan of Treatment Not on filedocumented as of this encounter Procedures + +--------+ + + + | Procedure Name | Priori | Date/Time | Associated Diagnosis | Comments | | | ty | | | | + +--------+ + + + | LIPID PROFILE | Routin | 08/15/2011 | | Results for this | | | e | 10:45 AM | | procedure are in the | | | | PDT | | results section. | + +--------+ + + + | COMPREHENSIVE | Routin | 08/15/2011 | | Results for this | | METABOLIC PANEL | e | 10:45 AM | | procedure are in the | | | | PDT | | results section. | + +--------+ + + + documented in this encounter Results Lipid Profile (08/15/2011 10:45 AM PDT) + + + + + + | Component | Value | Ref Range | Performed | Pathologist | | | | | At | Signature | + + + + + + | Triglycerid | 151 | 35 - 160 mg/dL | [facility] | | | es | | | [facility] | [facility] | | | [facility] | | | | | | CENTER - | | | | | | LABORATORY | | + + + + + + | Cholesterol | 135 (L) | 150 - 200 mg/dL | [facility] | | | | | | [facility] | | | | | | MEDICAL | | | | | | CENTER - | | | | | | LABORATORY | | + + + + + + | HDL | 43 | 29 - 89 mg/dL | [facility] | | | | | | [facility] | | | | | | MEDICAL | | | | | | CENTER - | | | | | | LABORATORY | | + + + + + + | LDL, | 62 | <130 mg/dL | [facility] | | | Calculated | | | [facility] | | | | | | MEDICAL | | | | | | CENTER - | | | | | | LABORATORY | | + + + + + + | Chol/HDL | 3.1Comment: | | [facility] | | | Ratio | | | [facility] | | | | | | MEDICAL | | | | ------- RISK CATEGORY: | | CENTER - | | | | CHOL/HDL * T.CHOL * LDL | | LABORATORY | | | | CHOL * HDL CHOL | | | | | | | | | | | | RATIO DESIRABLE: (M) | | | | | | 4.0-6.7 <200 | | | | | | <130 >50 | | | | | | (F) | | | | | | 3.7-4.2 BORDERLINE:(M) | | | | | | 6.7-7.4 200-240 | | | | | | 130-160 <45 | | | | | | (F) | | | | | | 4.2-5.5 HIGH RISK: (M) | | | | | | >7.4 >240 | | | | | | >160 <35 | | | | | | (F) | | | | | | >5.5 | | | | | | | | | | | | | | | | | | --------- | | | | + + + + + + + + | Specimen | + + | | + + + + + + + | Performing | Address | City/State/Zipcode | Phone Number | | Organization | | | | + + + + + | [facility] | [address] | [place] | [phone] | | [facility] | | [address] | | | - LABORATORY | | | | + + + + + | [facility] | [address] | [place] | | | [facility] | | [address] | | | - LABORATORY | | | | + + + + + Comprehensive Metabolic Panel (08/15/2011 10:45 AM PDT) + + + + + + | Component | Value | Ref Range | Performed | Pathologist | | | | | At | Signature | + + + + + + | Glucose | 94 | 70 - 109 mg/dL | [facility] | | | | | | [facility] | | | | | | MEDICAL | | | | | | CENTER - | | | | | | LABORATORY | | + + + + + + | Calcium | 8.8 | 8.3 - 10.5 | [facility] | | | | | mg/dL | [facility] | | | | | | MEDICAL | | | | | | CENTER - | | | | | | LABORATORY | | + + + + + + | Alkaline | 45 | 40 - 110 IU/L | [facility] | | | Phosphatase | | | [facility] | | | | | | MEDICAL | | | | | | CENTER - | | | | | | LABORATORY | | + + + + + + | AST | 15 | 10 - 42 IU/L | [facility] | | | | | | [facility] | | | | | | MEDICAL | | | | | | CENTER - | | | | | | LABORATORY | | + + + + + + | ALT | 12 | 6 - 45 IU/L | [facility] | | | | | | [facility] | | | | | | MEDICAL | | | | | | CENTER - | | | | | | LABORATORY | | + + + + + + | Bilirubin | 0.6 | 0.2 - 1.0 mg/dL | [facility] | | | Total | | | [facility] | | | | | | MEDICAL | | | | | | CENTER - | | | | | | LABORATORY | | + + + + + + | Total | 5.8 (L) | 6.0 - 7.8 gm/dL | [facility] | | | Protein | | | [facility] | | | | | | MEDICAL | | | | | | CENTER - | | | | | | LABORATORY | | + + + + + + | Albumin | 3.5 | 3.2 - 5.0 gm/dL | [facility] | | | | | | [facility] | | | | | | MEDICAL | | | | | | CENTER - | | | | | | LABORATORY | | + + + + + + | BUN | 11 | 7 - 18 mg/dL | [facility] | | | | | | [facility] | | | | | | MEDICAL | | | | | | CENTER - | | | | | | LABORATORY | | + + + + + + | Creatinine | 0.83 | 0.60 - 1.30 | [facility] | | | | | mg/dL | [facility] | | | | | | MEDICAL | | | | | | CENTER - | | | | | | LABORATORY | | + + + + + + | Estimated | >60Comment: For | >60 mL/min/A | [facility] | | | GFR | -Americans, | | [facility] | | | | please multiply the | | MEDICAL | | | | result by 1.210 | | CENTER - | | | | This is an estimated | | LABORATORY | | | | GFR and is based on a | | | | | | standard adult | | | | | | body mass (A=1.73m2) and | | | | | | serum creatinine | | | | + + + + + + | BUN/Creatin | 13.3 | 12 - 20 | [facility] | | | ine Ratio | | | [facility] | | | | | | MEDICAL | | | | | | CENTER - | | | | | | LABORATORY | | + + + + + + | Na | 138 | 136 - 149 mEq/L | [facility] | | | | | | [facility] | | | | | | MEDICAL | | | | | | CENTER - | | | | | | LABORATORY | | + + + + + + | K | 4.3 | 3.5 - 5.1 mEq/l | [facility] | | | | | | [facility] | | | | | | MEDICAL | | | | | | CENTER - | | | | | | LABORATORY | | + + + + + + | Cl | 107 | 98 - 109 mEq/l | [facility] | | | | | | [facility] | | | | | | MEDICAL | | | | | | CENTER - | | | | | | LABORATORY | | + + + + + + | CO2 | 27 | 24 - 31 mEq/L | [facility] | | | | | | [facility] | | | | | | MEDICAL | | | | | | CENTER - | | | | | | LABORATORY | | + + + + + + | Anion Gap | 8.3 | 6.0 - 17.0 | [facility] | | | | | | [facility] | | | | | | MEDICAL | | | | | | CENTER - | | | | | | LABORATORY | | + + + + + + + + | Specimen | + + | | + + + + + + + | Performing | Address | City/State/Zipcode | Phone Number | | Organization | | | | + + + + + | [facility] | [address] | [place] | [phone] | | [facility] | | [address] | | | - LABORATORY | | | | + + + + + | [facility] | [address] | [place] | | | [facility] | | [address] | | | - LABORATORY | | | | + + + + + documented in this encounter Visit Diagnoses Not on filedocumented in this encounter"
--- OUTSIDE RECORDS SUMMARY | ~2019-02-20 | XMS | Encounter Summary ---
Demographics + + + | Address | [address] | | | [place] [address] | + + + | Home Phone | | + + + | Preferred Language | Unknown | + + + | Marital Status | | + + + | Judaism Affiliation | 1077 | + + + | Race | Unknown | + + + | Ethnic Group | Unknown | + + + Author + + + | Author | [facility] | | | and [place] | + + + | Organization | [facility] | | | and [place] | [...] [place], | | | | | [place] [address] | | + + + + + | Rahul Love . | ECON | [address] | | | | | [place] | | | | | [address] | | + + + + + Care Team Providers + +------+ + | Care Agronomy Professor Name | Role | Phone | + +------+ + PCP | Unavailable | + +------+ + Encounter Details +--------+ + + + + | Date | Type | Department | Care Team | Description | +--------+ + + + + | 12/03/ | Hospital | [facility] | | | | 2007 - | Encounter | MED CTR CANC[facility] | | | | | | CENTER [address] | | | | 12/25/ | | [place], [place] | | | | 2007 | | [address] | | | | | | [phone] | | | +--------+ + + + [...] + + documented as of this encounter Plan of Treatment Not on filedocumented as of this encounter Visit Diagnoses Not on filedocumented in this encounter"
--- OUTSIDE RECORDS SUMMARY | ~2019-02-20 | XMS | Encounter Summary ---
Demographics + + + | Address | [address] | | | [place] [address] | + + + | Home Phone | | + + + | Preferred Language | Unknown | + + + | Marital Status | | + + + | Scientology Affiliation | 1077 | + + + | Race | Unknown | + + + | Ethnic Group | Unknown | + + + Author + + + | Author | [facility] | | | and [place] | + + + | Organization | [facility] | | | and [place]ana [...] [place], | | | | | [place] [address] | | + + + + + | Rahul Love . | ECON | [address] | | | | | [place] | | | | | [address] | | + + + + + Care Team Providers + +------+ + | Care Therapeutic Sales Specialist Name | Role | Phone | + +------+ + PCP | Unavailable | + +------+ + Encounter Details +--------+ + + + + | Date | Type | Department | Care Team | Description | +--------+ + + + + | 02/09/ | Hospital | [facility] | | | | 2010 - | Encounter | MED CTR CANC[facility] | | | | | | CENTER [address] | | | | 02/24/ | | [place] | | | | 2010 | | [address] | | | | | | [phone] | | | +--------+ + + + [...] encounter Progress Notes Baldomero York MD - 02/09/2011 1:08 AM PSTDATE: 02/09/2011 FOLLOWUP NOTE DIAGNOSIS: Anal canal squamous cell carcinoma. FOLLOWUP NOTE: Ms. 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 The patient did receive 4500 cGy to the regional lymphatics, followed by a boost to the anal c anal to a total of 6120 cGy, co mpleting those on 02/16/2008. The patient returns today fo r regular followup. The patient states that overall, she feel that she is doing very well. She states that she did have a repeat colonoscopy by Dr. Azul earlier this fall. He did take a couple of bio psies of abnormal-lo oking areas, which were benign. 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 This did appear to be somewhat friable as well as noted a scar at the top of th e anal canal and some telangiectasias. T he biopsy was taken from the scar area, all of wh ich was negative per the patient. The patient state s that she does have some intermittent hematochezia, maybe once a few times a month, and that is why the colonoscopy was done, bu t no abnormalities were found at that time. She has been using a dilator secondary to an a nal stricture and states that this has made a big difference and that it is easier to have bowel movements and has noted a decrease in the amount of blood she has seen with the easier bowel movements. She denies any diarrhea. Denies any blood in her urine. Denies any vag inal discom fort. PHYSICAL EXAMINATION VITAL SIGNS: Blood pressure 126/76, pulse 56, temperature 36.6 degrees Celsius, weight 61. 9 kg. GENERAL: The patient is awake, alert, and oriented in no apparent distress. LUNGS: Clear to auscultation. HEART: Regular rate and rhythm. ABDOMEN: Soft, nontender, nondistended. The patient does have an incision from previous l aparoscopi c cholecystectomy as well as a midline incision that are all well-healed. No pa lpable abnormalities appreciated. No inguinal adenopathy appreciated. ANAL EXAM: There was some mild thickening of the skin in the perianal region. She does matthews ve a tight anus. It was somewhat difficult to perform a full exam although I was able to p alpate around the an al canal and into the rectum with no palpable abnormalities appreciate d. ASSESSMENT AND PLAN: Ms. Mariama Love is nearing 3 years out from completion of her radiat ion therap y as part of her treatment for anal canal squamous cell carcinoma. At this time , there is no clinica l evidence of recurrence of disease both on exam as well as on endosc opy, and we would like the patie nt to return in 6 months for further followup. The patien t was agreeable to this plan. DICTATED BY: Baldomero York MD Radiation Oncology JOB #: [id number] EXT JOB #:[id number] cc: MD Henri Sagastume MD S. Maynard Bronstein, MD, PHD <Electronically Signed by Baldomero York MD> 02/25/11 0945 documented in this encounter Plan of Treatment Not on filedocumented as of this encounter Visit Diagnoses Not on filedocumented in this encounter"
--- OUTSIDE RECORDS SUMMARY | ~2019-02-20 | XMS | Encounter Summary ---
Demographics + + + | Address | [address] | | | [place] [address] | + + + | Home Phone | | + + + | Preferred Language | Unknown | + + + | Marital Status | | + + + | Anabaptism Affiliation | 1077 | + + + | Race | Unknown | + + + | Ethnic Group | Unknown | + + + Author + + + | Author | [facility] | | | and [place] | + + + | Organization | [facility] | | | and [place] [...] [place], | | | | | [place] [address] | | + + + + + | Rahul Love . | ECON | [address] | | | | | [place], [place] | | | | | [address] | | + + + + + Care Team Providers + +------+ + | Care Steam Turbine Operator Name | Role | Phone | + +------+ + | No, Unknownpcp | PCP | | + +------+ + Encounter Details +--------+ + + + + | Date | Type | Department | Care Team | Description | +--------+ + + + + | 08/04/ | Hospital | [facility] | Emanuel Huang | | | 2012 - | Encounter | MED CTR CANCER | MD Scar [address] | | | | | [place] [address] | [place] [facility] | | | 08/24/ | | [place] | [place] [address] | | | 2012 | | [address] | [phone] | | | | | [phone] | | | +--------+ + + + [...] + | LIPID PROFILE | Routin | 08/04/2012 | | Results for this | | | e | 9:16 AM | | procedure are in the | | | | PDT | | results section. | + +--------+ + + + | COMPREHENSIVE | Routin | 08/04/2012 | | Results for this | | METABOLIC PANEL | e | 9:16 AM | | procedure are in the | | | | PDT | | results section. | + +--------+ + + + documented in this encounter Results Lipid Profile (08/04/2012 9:16 AM PDT) + + + + + + | Component | Value | Ref Range | Performed | Pathologist | | | | | At | Signature | + + + + + + | Triglycerid | 112 | 35 - 160 mg/dL | [facility] | | | es | | | [facility] | | | | | | [facility] | | | | | | CENTER - | | | | | | LABORATORY | | + + + + + + | Cholesterol | 157 | 150 - 200 mg/dL | [facility] | | | | | | [facility] | | | | | | MEDICAL | | | | | | CENTER - | | | | | | LABORATORY | | + + + + + + | HDL | 50 | 29 - 89 mg/dL | [facility] | | | | | | [facility] | | | | | | MEDICAL | | | | | | CENTER - | | | | | | LABORATORY | | + + + + + + | LDL, | 85 | <130 mg/dL | [facility] | | [...] + + + + + | [facility] | [address] | [place] | [phone] | | [facility] | | [address] | | | - LABORATORY | | | | + + + + + | [facility] | [address] | [place] | | | [facility] | | [address] | | | - LABORATORY | | | | + + + + + Comprehensive Metabolic Panel (08/04/2012 9:16 AM PDT) + + + + + + | Component | Value | Ref Range | Performed | Pathologist | | | | | At | Signature | + + + + + + | Glucose | 108 | 70 - 109 mg/dL | [facility] | | | | | | [facility] | | | | | | MEDICAL | | | | | | CENTER - | | | | | | LABORATORY | | + + + + + + | Calcium | 8.9 | 8.3 - 10.5 | [facility] | | | | | mg/dL | [facility] | | | | | | MEDICAL | | | | | | CENTER - | | | | | | LABORATORY | | + + + + + + | Alkaline | 54 | 40 - 110 IU/L | [facility] | | | Phosphatase | | | [facility] | | | | | | MEDICAL | | | | | | CENTER - | | | | | | LABORATORY | | + + + + + + | AST | 18 | 10 - 42 IU/L | [facility] [...] + + + + | Bilirubin | 0.9 | 0.2 - 1.0 mg/dL | [facility] | | | Total | | | [facility] | | | | | | MEDICAL | | | | | | CENTER - | | | | | | LABORATORY | | + + + + + + | Total | 6.2 | 6.0 - 7.8 gm/dL | [facility] | | | Protein | | | [facility] | | | | | | MEDICAL | | | | | | CENTER - | | | | | | LABORATORY | | + + + + + + | Albumin | 3.6 | 3.2 - 5.0 gm/dL | [facility] | | | | | | [facility] | | | | | | MEDICAL | | | | | | CENTER - | | | | | | LABORATORY | | + + + + + + | BUN | 10 | 7 - 18 mg/dL | [facility] | | | | | | [facility] | | | | | | MEDICAL | | | | | | CENTER - | | | | | | LABORATORY | | + + + + + + | Creatinine | 0.76 | 0.60 - 1.30 | [facility] | | | | | mg/dL | [facility] | | | | | | MEDICAL | | | | | | CENTER - | | | | | | LABORATORY | | + + + + + + | Estimated | >60Comment: For | >60 mL/min/A | [facility] | | | GFR | -Americans, | [...] + + + + | BUN/Creatin | 13.2 | 12 - 20 | [facility] | | | ine Ratio | | | [facility] | | [...] + + + + | K | 3.9 | 3.5 - 5.1 mEq/l | [facility] | | | | | | [facility] | | | | | | MEDICAL | | | | | | CENTER - | | | | | | LABORATORY | | + + + + + + | Cl | 103 | 98 - 109 mEq/l | [facility] | | | | | | [facility] | | | | | | MEDICAL | | | | | | CENTER - | | | | | | LABORATORY | | + + + + + + | CO2 | 28 | 24 - 31 mEq/L | [facility] | | | | | | [facility] | | | | | | MEDICAL | | | | | | CENTER - | | | | | | LABORATORY | | + + + + + + | Anion Gap | 10.9 | 6.0 - 17.0 | [facility] | [...] + | [facility] | [address] | [place] | [phone] | | [facility] | | [address] | | | - LABORATORY | | | | + + + + + | [facility] | [address] | [place] | | | [facility] | | [address] | | | - LABORATORY | | | | + + + + + documented in this encounter Visit Diagnoses Not on filedocumented in this encounter"
--- OUTSIDE RECORDS SUMMARY | ~2019-02-20 | XMS | Encounter Summary ---
Demographics + + + | Address | [address] | | | [place] [address] | + + + | Home Phone | | + + + | Preferred Language | Unknown | + + + | Marital Status | | + + + | Restorationism Affiliation | 1077 | + + + | Race | Unknown | + + + | Ethnic Group | Unknown | + + + Author + + + | Author | [facility] | | | and [place] | + + + | Organization | [facility] | | | and Valer[place]ana [...] [place], | | | | | [place] [address] | | + + + + + | Rahul Love . | ECON | [address] | | | | | [place] | | | | | [address] | | + + + + + Care Team Providers + +------+ + | Care Game Agent Name | Role | Phone | + +------+ + PCP | Unavailable | + +------+ + Encounter Details +--------+ + + + + | Date | Type | Department | Care Team | Description | +--------+ + + + + | 08/14/ | Hospital | [facility] | Emanuel Huang | | | 2011 - | Encounter | MED CTR CANCER | MD Scar [address] | | | | | [place] [address] | [place] | | | 08/24/ | | [place], [place] | [place] [address] | | | 2011 | | [address] | [phone] | | | | | [phone] | | | +--------+ + + + [...] in 01/2008. The patient does come in [facility] for regular followup. Mariama states that she [...] Baldomero York MD Radiation Oncology JOB #: [id number] [id number] JOB #:[id number] cc: MD Emanuel Sagastume MD Dr. Andrew Bower [place] <Electronically Signed by Baldomero York MD> 09/02/11 [...] [address] | [place] | [phone] | | [facility] | | [address] | | | - LABORATORY | | | | + + + + + | [facility] | [address] | [place] | | | [facility] | | [address] | | | - LABORATORY | | [...] 11 | 7 - 18 mg/dL | [facility] | | | | | | [facility] | | | | | | MEDICAL | | | | | | CENTER - | | | | | | LABORATORY | | + + + + + + | Creatinine | 0.83 | 0.60 - 1.30 | [facility] | | | | | mg/dL | [facility] | | | | | | MEDICAL | | | | | | CENTER - | | | | | | LABORATORY | | + + + + + + | Estimated | >60Comment: For | >60 mL/min/A | [facility] | | | GFR | -Americans, | [...] + | [facility] | [address] | [place] | [phone] | | [facility] | | [address] | | | - LABORATORY | | | | + + + + + | [facility] | [address] | [place] | | | [facility] | | [address] | | | - LABORATORY | | | | + + + + + documented in this encounter Visit Diagnoses Not on filedocumented in this encounter"
--- OUTSIDE RECORDS SUMMARY | ~2019-02-20 | XMS | Clinical Summary ---
Demographics + + + | Address | [address] | | | [place] [address] | + + + | Home Phone | | + + + | Preferred Language | Unknown | + + + | Marital Status | | + + + | Rastafari Affiliation | 1077 | + + + | Race | Unknown | + + + | Ethnic Group | Unknown | + + + Author + + + | Author | [facility] | | | and Valer[place]ana | + + + | Organization | [facility] | | | and [place]er[place]ana [...] [place], | | | | | [place] [address] | | + + + + + | Rahul Love . | ECON | [address] | | | | | [place] | | | | | [address] | | + + + + + Care Team Providers + +------+ + | Care Clinical Rehab Liaison Name | Role | Phone | + +------+ + | John Del Cid MD | PCP | | + +------+ + Allergies + + + + + + | Active Allergy | Reactions | Severity | Noted | Comments | | | | | Date | | + + + + + + | Naproxen Sodium | Nausea And Vomiting | Medium | 10/11/19 | | | | | | 14 | | + + + + + + | Aspirin | | | 04/22/19 | Vomiting | | | | | 14 | | + + + + + + Medications + + + +---------+------+------+-------+ | Medication | Sig | Dispensed | Refills | Star | End | Statu | | | | | | t | Date | s | | | | | | Date | | | + + + +---------+------+------+-------+ | Atenolol (TENORMIN | Take 1/2 tablet by | | 0 | | | Activ | | PO) | mouth 3 times a week | | | | | e | + + + +---------+------+------+-------+ | Calcium | Take 1/2 tablet by | | 0 | | | Activ | | Carbonate-Vitamin D | mouth 2 times daily | | | | | e | | (CALCIUM 600 + D PO) | before meals | | | | | | + + + +---------+------+------+-------+ | CHONDROITIN | Take 500 mg by mouth | | 0 | | | Activ | | SULFATE PO | Daily. | | | | | e | + + + +---------+------+------+-------+ | Glucosamine | Take 1,000 mg by | | 0 | | | Activ | | Sulfate 1000 MG TABS | mouth Daily. | | | | | e | + + + +---------+------+------+-------+ | | Take 1 tablet by | | 0 | | | Activ | | HYDROcodone-acetamin | mouth as needed. | | | | | e | | ophen (LORTAB) | | | | | | | | 7.5-500 mg per | | | | | | | | tablet | | | | | | | + + + +---------+------+------+-------+ | Multiple | Take 1 each by mouth | | 0 | | | Activ | | Vitamins-Minerals | Daily. | | | | | e | | (MULTIVITAMIN PO) | | | | | | | + + + +---------+------+------+-------+ | omeprazole | Take 20 mg by mouth | | 0 | | | Activ | | (PRILOSEC) 20 mg | Daily. | | | | | e | | capsule | | | | | | | + + + +---------+------+------+-------+ | Potassium Chloride | Take 10 mEq by mouth | | 0 | | | Activ | | (KLOR-CON 10 PO) | Three times a week. | | | | | e | + + + +---------+------+------+-------+ | pravastatin | Take 20 mg by mouth | | 0 | | | Activ | | (PRAVACHOL) 20 mg | nightly. | | | | | e | | tablet | | | | | | | + + + +---------+------+------+-------+ | Wheat Dextrin | Take by mouth. | | 0 | | | Activ | | (BENEFIBER DRINK MIX | Powder. 1 by mouth | | | | | e | | PO) | daily as needed | | | | | | + + + +---------+------+------+-------+ | | Take 0.5-1 tablets | 20 | 0 | 08/1 | | Activ | | HYDROcodone-acetamin | by mouth every 4 | tablet | | 6/20 | | e | | ophen (NORCO) 5-325 | hours as needed for | | | 14 | | | | mg per tablet | Pain. | | | | | | + + + +---------+------+------+-------+ Active Problems Not on file Social History + +-------+ +--------+------+ | Tobacco Use | Types | Packs/Day | Years | Date | | | | | Used | | + +-------+ +--------+------+ | Never Assessed | | | | | + +-------+ +--------+------+ + + +---------+ + | Alcohol Use | Drinks/Week | oz/Week | Comments | + + +---------+ + | No | | | | + + +---------+ + + + + | Sex Assigned at [...] recent travel history available. | + + Last Filed Vital Signs + + + + + | Vital Sign | Reading | Time Taken | Comments | + + + + + | Blood Pressure | 145/65 | 10/10/2013 9:09 PM | | | | | PDT | | + + + + + | Pulse | 92 | 10/10/2013 9:09 PM | | | | | PDT | | + + + + + | Temperature | 37.3 C (99.1 F) | 10/10/2013 7:31 PM | | | | | PDT | | + + + + + | Respiratory Rate | 14 | 10/10/2013 9:09 PM | | | | | PDT | | + + + + + | Oxygen Saturation | 98% | 10/10/2013 9:09 PM | | | | | PDT | | + + + + + | Inhaled Oxygen | - | - | | | Concentration | | | | + + + + + | Weight | 54.9 kg (121 lb) | 10/10/2013 7:31 PM | | | | | PDT | | + + + + + | Height | 162.6 cm (5' 4") | 10/10/2013 7:31 PM | | | | | PDT | | + + + + + | Body Mass Index | 20.77 | 10/10/2013 7:31 PM | | | | | PDT | | + + + + + Plan of Treatment + + + + + | Health Maintenance | Due Date | Last Done | Comments | + + + + + | Vaccine: | | | | | Dtap/Tdap/Td (1 - | 3 | | | | Tdap) | | | | + + + + + | Vaccine: Zoster (1 | | | | | of 2) | 2 | | | + + + + + | Vaccine: | | | | | Pneumococcal 65+ (1 | 7 | | | | of 2 - PCV13) | | | | + + + + + | Vaccine: Influenza | | | | | (#1) | 9 | | | + + + + + Results Not on filefrom Last 3 Months Insurance + +--------+ +--------+ +---------+--------+ | Payer | Benefi | Subscriber | Effect | Phone | Address | Type | | | t Plan | ID | aleksandra | | | | | | / | | Dates | | | | | | Group | | | | | | + +--------+ +--------+ +---------+--------+ | MEDICARE | MEDICA | [id number] | 06/25/18 | [phone] | | Medica | | | RE | | 97-Pre | 5 | | re | | | PART A | | sent | | | | | | AND B | | | | | | + +--------+ +--------+ +---------+--------+ | COMMERCIAL GENERIC | BH | [id number] | | | | Indemn | | | COMMER | | 014-Pr | | | ity | | | CIAL | | esent | | | | | | OTHER | | | | | | | | INDEMN | | | | | | | | ITY | | | | | | + +--------+ +--------+ +---------+--------+ + +--------+ +--------+ + + | Guarantor Name | Accoun | Relation to | Date | Phone | Billing Address | | | t Type | Patient | of | | | | | | | | | | + +--------+ +--------+ + + | Mariama Love | Person | Self | [birth year] | [address] | | | al/Fam | | 1931 | [phone] | [place] [address] | | | danielle | | | 5 (Home) | | + +--------+ +--------+ + + Advance Directives + + + + + | Type | Date Recorded | Patient | Explanation | | | | Court Messenger | | + + + + + | Power of | | | | | Sales Performance Manager | | | | + + + + + | Advance | 10/09/2013 7:51 | | | | Directive | PM | | | + + + + +
--- OUTSIDE RECORDS SUMMARY | ~2019-02-20 | XMS | Encounter Summary ---
Demographics + + + | Address | [address] | | | [place] [address] | + + + | Home Phone | | + + + | Preferred Language | Unknown | + + + | Marital Status | | + + + | Caodaism Affiliation | 1077 | + + + | Race | Unknown | + + + | Ethnic Group | Unknown | + + + Author + + + | Author | [facility] | | | and [place]er[place] | + + + | Organization | [facility] | | | and [place]er[place]ana [...] [place], | | | | | [place] [address] | | + + + + + | Rahul Love . | ECON | [address] | | | | | [place] | | | | | [address] | | + + + + + Care Team Providers + +------+ + | Care Tool Dispatcher Name | Role | Phone | + +------+ + PCP | Unavailable | + +------+ + Encounter Details +--------+ + + + + | Date | Type | Department | Care Team | Description | +--------+ + + + + | 10/27/ | Hospital | [facility] | | | | 2008 - | Encounter | MED CTR CANCER | | | | | | CENTER [address] | | | | 11/24/ | | [place] | | | | 2008 | | [address] | | | | | | [phone] | | | +--------+ + + + [...]
--- OUTSIDE RECORDS SUMMARY | ~2019-02-20 | XMS | Encounter Summary ---
Demographics + + + | Address | [address] | | | [place] [address] | + + + | Home Phone | | + + + | Preferred Language | Unknown | + + + | Marital Status | | + + + | Advent Affiliation | 1077 | + + + | Race | Unknown | + + + | Ethnic Group | Unknown | + + + Author + + + | Author | [facility] | | | and [place] | + + + | Organization | [facility] | | | and [place]er[place]ana [...] [place], | | | | | [place] [address] | | + + + + + | Rahul Love . | ECON | [address] | | | | | [place] | | | | | [address] | | + + + + + Care Team Providers + +------+ + | Care Formstone Fitter Name | Role | Phone | + +------+ + PCP | Unavailable | + +------+ + Encounter Details +--------+ + + + + | Date | Type | Department | Care Team | Description | +--------+ + + + + | 01/23/ | Hospital | [facility] | [place], | | | 2007 - | Encounter | MED CTR MED ONC | Scar Diego MD [address] | | | | [address] [place] | [address] [place] | | | 01/30/ | | [place] [address] | [place] [address] | | | 2007 | | [phone] | [phone] | | | | | | | [...]
--- OUTSIDE RECORDS SUMMARY | ~2019-02-20 | XMS | Encounter Summary ---
Demographics + + + | Address | [address] | | | [place] [address] | + + + | Home Phone | | + + + | Preferred Language | Unknown | + + + | Marital Status | | + + + | Mormon Affiliation | 1077 | + + + | Race | Unknown | + + + | Ethnic Group | Unknown | + + + Author + + + | Author | [facility] | | | and [place] | + + + | Organization | [facility] | | | and [place] | [...] [place], | | | | | [place] [address] | | + + + + + | Rahul Love . | ECON | [address] | | | | | [place] | | | | | [address] | | + + + + + Care Team Providers + +------+ + | Care Fruit Peeler Name | Role | Phone | + +------+ + PCP | Unavailable | + +------+ + Encounter Details +--------+ + + + + | Date | Type | Department | Care Team | Description | +--------+ + + + + | 01/25/ | Hospital | [facility] | | | | 2007 - | Encounter | MED CTR CANCER | | | | | | CENTER [address] | | | | 02/24/ | | [place] | | | | 2007 | | [address] | | | | | | [phone] | | | +--------+ + + + [...]
--- OUTSIDE RECORDS SUMMARY | ~2019-02-20 | XMS | Encounter Summary ---
Demographics + + + | Address | [address] | | | [place] [address] | + + + | Home Phone | | + + + | Preferred Language | Unknown | + + + | Marital Status | | + + + | Roman Catholic Affiliation | 1077 | + + + | Race | Unknown | + + + | Ethnic Group | Unknown | + + + Author + + + | Author | [facility] | | | and [place] | + + + | Organization | [facility] | | | and [place]erianoana [...] [place], | | | | | [place] [address] | | + + + + + | Rahul Love . | ECON | [address] | | | | | [place], [place] | | | | | [address] | | + + + + + Care Team Providers + +------+ + | Care Truck Switcher Name | Role | Phone | + +------+ + | No, Unknownpcp | PCP | | + +------+ + Encounter Details +--------+ + + + + | Date | Type | Department | Care Team | Description | +--------+ + + + + | 04/22/ | Abstract | [facility] | Emanuel Huang | | | 2013 | | Conversion Location | MD Scar [address] | | | | | [phone] | [address] | | | | | | [place] [address] | | | | | | [phone] | | | | | | | [...]
--- OUTSIDE RECORDS SUMMARY | ~2019-02-20 | XMS | Clinical Summary ---
Demographics + + + | Address | [address] | | | [place] [address] | + + + | Home Phone | | + + + | Preferred Language | Unknown | + + + | Marital Status | | + + + | Jain Affiliation | 1077 | + + + | Race | Unknown | + + + | Ethnic Group | Unknown | + + + Author + + + | Author | [facility] | | | and [place] | + + + | Organization | [facility] | | | and [place] | [...] [place], | | | | | [place] [address] | | + + + + + | Rahul Love . | ECON | [address] | | | | | [place] | | | | | [address] | | + + + + + Care Team Providers + +------+ + | Care Surveyor Instrument Assistant Name | Role | Phone | [...] +--------+ +---------+--------+ | MEDICARE | MEDICA | [id number] | 06/25/18 | [phone] | | Medica | | | RE | | 97-Pre | 5 | | re | | | PART A | | sent | | | | | | AND B | | | | | | + +--------+ +--------+ +---------+--------+ | COMMERCIAL GENERIC | BH | [id number] | | | | Indemn | | [...] | | al/Fam | | 1931 | [phone] | [place] [address] | | | danielle | | | 5 (Home) | | + +--------+ +--------+ + + Advance Directives + + + + + | Type | Date Recorded | Patient | Explanation | | | | Resident Intern | | + + + + + | Power of | | | | | Protection Consultant | | | | + + + + + | Advance | 10/09/2013 7:51 | | | | Directive | PM | | | + + + + +
--- OUTSIDE RECORDS SUMMARY | ~2019-02-20 | XMS | Encounter Summary ---
Demographics + + + | Address | [address] | | | [place] [address] | + + + | Home Phone | | + + + | Preferred Language | Unknown | + + + | Marital Status | | + + + | Mandaeism Affiliation | 1077 | + + + | Race | Unknown | + + + | Ethnic Group | Unknown | + + + Author + + + | Author | [facility] | | | and Valerianoana | + + + | Organization | [facility] | | | and Valerianoana [...] [place], | | | | | [place] [address] | | + + + + + | Rahul Love . | ECON | [address] | | | | | [place] | | | | | [address] | | + + + + + Care Team Providers + +------+ + | Care Assembler Piano Name | Role | Phone | + +------+ + PCP | Unavailable | + +------+ + Encounter Details +--------+ + + + + | Date | Type | Department | Care Team | Description | +--------+ + + + + | 01/19/ | Hospital | [facility] | Amanda Lombardo | | | 2007 | Encounter | MED CTR EMERGENCY | Judd Shoemaker MD [address] | | | | | [place] [address] | [facility] | | | | | [address] | [place] [address] | | | | | [address] | [phone] | | | | | [phone] | | | +--------+ + + + [...]
--- OUTSIDE RECORDS SUMMARY | ~2019-02-20 | XMS | Encounter Summary ---
Demographics + + + | Address | [address] | | | [place] [address] | + + + | Home Phone | | + + + | Preferred Language | Unknown | + + + | Marital Status | | + + + | Episcopal Affiliation | 1077 | + + + | Race | Unknown | + + + | Ethnic Group | Unknown | + + + Author + + + | Author | [facility] | | | and [place] | + + + | Organization | [facility] | | | and [place]er[place]ana [...] [place], | | | | | [place] [address] | | + + + + + | Rahul Love . | ECON | [address] | | | | | [place] | | | | | [address] | | + + + + + Care Team Providers + +------+ + | Care Buoy Tender Name | Role | Phone | + +------+ + PCP | Unavailable | + +------+ + Encounter Details +--------+ + + + + | Date | Type | Department | Care Team | Description | +--------+ + + + + | 07/22/ | Hospital | [facility] | [place] | | | 2008 | Encounter | MED CTR EMERGENCY | Judd Shoemaker MD [address] | | | | | [place] [address] | [facility] | | | | | [place] [place] | [place] [address] | | | | | [address] | [phone] | | | | | [phone] | | | +--------+ + + + [...]
--- OUTSIDE RECORDS SUMMARY | ~2019-02-20 | XMS | Encounter Summary ---
Demographics + + + | Address | [address] | | | [place] [address] | + + + | Home Phone | | + + + | Preferred Language | Unknown | + + + | Marital Status | | + + + | Judaism Affiliation | 1077 | + + + | Race | Unknown | + + + | Ethnic Group | Unknown | + + + Author + + + | Author | [facility] | | | and [place] | + + + | Organization | [facility] | | | and [place]ana [...] [place], | | | | | [place] [address] | | + + + + + | Rahul Love . | ECON | [address] | | | | | [place] | | | | | [address] | | + + + + + Care Team Providers + +------+ + | Care Client Application Support Specialist Name | Role | Phone | + +------+ + PCP | Unavailable | + +------+ + Encounter Details +--------+ + + + + | Date | Type | Department | Care Team | Description | +--------+ + + + + | 12/10/ | Hospital | [facility] | [place], | | | 2007 - | Encounter | MED CTR OP INFUSION | Scar Diego MD [address] | | | | | [address] | [address] [place] | | | 12/25/ | | [place], [place] | [place] [address] | | | 2007 | | [address] | [phone] | | | | | [phone] | | | +--------+ + + + [...]
--- OUTSIDE RECORDS SUMMARY | ~2019-02-20 | XMS | Encounter Summary ---
Demographics + + + | Address | [address] | | | [place] [address] | + + + | Home Phone | | + + + | Preferred Language | Unknown | + + + | Marital Status | | + + + | Gnosticism Affiliation | 1077 | + + + | Race | Unknown | + + + | Ethnic Group | Unknown | + + + Author + + + | Author | [facility] | | | and [place] | + + + | Organization | [facility] | | | and [place] | [...] [place], | | | | | [place] [address] | | + + + + + | Rahul Love . | ECON | [address] | | | | | [place] | | | | | [address] | | + + + + + Care Team Providers + +------+ + | Care Command And Control Officer Name | Role | Phone | + +------+ + PCP | Unavailable | + +------+ + Encounter Details +--------+ + + + + | Date | Type | Department | Care Team | Description | +--------+ + + + + | 02/25/ | Hospital | [facility] | | | | 2008 - | Encounter | MED CTR CANCER | | | | | | CENTER [address] | | | | 03/27/ | | [place] | | | | 2008 | | [address] | | | | | | [phone] | | | +--------+ + + + [...]
--- OUTSIDE RECORDS SUMMARY | ~2019-02-20 | XMS | Encounter Summary ---
Demographics + + + | Address | [address] | | | [place] [address] | + + + | Home Phone | | + + + | Preferred Language | Unknown | + + + | Marital Status | | + + + | Mormon Affiliation | 1077 | + + + | Race | Unknown | + + + | Ethnic Group | Unknown | + + + Author + + + | Author | [facility] | | | and [place]er[place] | + + + | Organization | [facility] | | | and Valerianoana [...] [place], | | | | | [place] [address] | | + + + + + | Rahul Love . | ECON | [address] | | | | | [place], [place] | | | | | [address] | | + + + + + Care Team Providers + +------+ + | Care Onboarding Specialist Name | Role | Phone | + +------+ + | No, Unknownpcp | PCP | | + +------+ + Encounter Details +--------+ + + + + | Date | Type | Department | Care Team | Description | +--------+ + + + + | 08/04/ | Hospital | [facility] | Emanuel Huang | | | 2012 - | Encounter | MED CTR CANCER | MD Scar [address] | | | | | [place] [address] | [facility] | | | 08/24/ | | [address] [address] [place] | [place] [address] | | | 2012 | | [address] | [phone] | | | | | [phone] | | | +--------+ + + + [...] [address] | [place] | [phone] | | [facility] | | [address] | | | - LABORATORY | | | | + + + + + | [facility] | [address] | [place] | | | [facility] | | [address] | | | - LABORATORY | | [...] 10 | 7 - 18 mg/dL | [facility] | | | | | | [facility] | | | | | | MEDICAL | | | | | | CENTER - | | | | | | LABORATORY | | + + + + + + | Creatinine | 0.76 | 0.60 - 1.30 | [place] | | | | | mg/dL | [facility] | | | | | | MEDICAL | | | | | | CENTER - | | | | | | LABORATORY | | + + + + + + | Estimated | >60Comment: For | >60 mL/min/A | [facility] | | | GFR | -Americans, | | [facility] | | | | please multiply the [...] + | [facility] | [address] | [place] | [phone] | | [facility] | | [address] | | | - LABORATORY | | | | + + + + + | [facility] | [address] | [place] | | | [facility] | | [address] | | | - LABORATORY | | | | + + + + + documented in this encounter Visit Diagnoses Not on filedocumented in this encounter"
--- OUTSIDE RECORDS SUMMARY | ~2019-02-20 | XMS | Encounter Summary ---
Demographics + + + | Address | [address] | | | [place] [address] | + + + | Home Phone | | + + + | Preferred Language | Unknown | + + + | Marital Status | | + + + | Jew Affiliation | 1077 | + + + | Race | Unknown | + + + | Ethnic Group | Unknown | + + + Author + + + | Author | [facility] | | | and [place] | + + + | Organization | [facility] | | | and [...] [place], | | | | | [place] [address] | | + + + + + | Rahul Love . | ECON | [address] | | | | | [place] | | | | | [address] | | + + + + + Care Team Providers + +------+ + | Care Flight Operations Coordinator Name | Role | Phone | + +------+ + PCP | Unavailable | + +------+ + Encounter Details +--------+ + + + + | Date | Type | Department | Care Team | Description | +--------+ + + + + | 06/17/ | Hospital | [facility] | | | | 2008 - | Encounter | MED CTR CANCER | | | | | | CENTER [address] | | | | 06/24/ | | [place] | | | | 2008 | | [address] | | | | | | [phone] | | | +--------+ + + + [...]
--- OUTSIDE RECORDS SUMMARY | ~2019-02-20 | XMS | Encounter Summary ---
Demographics + + + | Address | [address] | | | [place] [address] | + + + | Home Phone | | + + + | Preferred Language | Unknown | + + + | Marital Status | | + + + | Mormon Affiliation | 1077 | + + + | Race | Unknown | + + + | Ethnic Group | Unknown | + + + Author + + + | Author | [facility] | | | and Valer[place] | + + + | Organization | [facility] | | | and [place]er[place]ana [...] [place], | | | | | [place] [address] | | + + + + + | Rahul Love . | ECON | [address] | | | | | [place] | | | | | [address] | | + + + + + Care Team Providers + +------+ + | Care Feeder Worker Power Unit Operator Name | Role | Phone | + +------+ + PCP | Unavailable | + +------+ + Encounter Details +--------+ + + + + | Date | Type | Department | Care Team | Description | +--------+ + + + + | 06/25/ | Hospital | [facility] | | | | 2008 - | Encounter | MED CTR CANCER | | | | | | CENTER [address] | | | | 07/25/ | | [place] | | | | 2008 | | [address] | | | | | | [phone] | | | +--------+ + + + [...]
--- OUTSIDE RECORDS SUMMARY | ~2019-02-20 | XMS | Encounter Summary ---
Demographics + + + | Address | [address] | | | [place] [address] | + + + | Home Phone | | + + + | Preferred Language | Unknown | + + + | Marital Status | | + + + | Mormonism Affiliation | 1077 | + + + | Race | Unknown | + + + | Ethnic Group | Unknown | + + + Author + + + | Author | [facility] | | | and Valer[place] | + + + | Organization | [facility] | | | and [...] [place], | | | | | [place] [address] | | + + + + + | Rahul Love . | ECON | [address] | | | | | [place] | | | | | [address] | | + + + + + Care Team Providers + +------+ + | Care Circus Train Supervisor Name | Role | Phone | + +------+ + PCP | Unavailable | + +------+ + Encounter Details +--------+ + + + + | Date | Type | Department | Care Team | Description | +--------+ + + + + | 10/07/ | Hospital | [facility] | | | | 2009 - | Encounter | MED CTR CANCER | | | | | | CENTER [address] | | | | 10/25/ | | [place] | | | | 2009 | | [address] | | | | | | [phone] | | | +--------+ + + + [...]
--- OUTSIDE RECORDS SUMMARY | ~2019-02-20 | XMS | Encounter Summary ---
Demographics + + + | Address | [address] | | | [place] [address] | + + + | Home Phone | | + + + | Preferred Language | Unknown | + + + | Marital Status | | + + + | Jew Affiliation | 1077 | + + + | Race | Unknown | + + + | Ethnic Group | Unknown | + + + Author + + + | Author | [facility] | | | and Valerianoana | + + + | Organization | [facility] | | | and [...] [place], | | | | | [place] [address] | | + + + + + | Rahul Love . | ECON | [address] | | | | | [place] | | | | | [address] | | + + + + + Care Team Providers + +------+ + | Care Procedural Nurse Name | Role | Phone | + +------+ + PCP | Unavailable | + +------+ + Encounter Details +--------+ + + + + | Date | Type | Department | Care Team | Description | +--------+ + + + + | 12/28/ | Hospital | [facility] | [place], | | | 2007 - | Encounter | MED CTR GENERIC OP | Scar Diego MD [address] | | | | | ERAN DEPT [address] [place] | | | 01/20/ | | [place], | [place] [address] | | | 2007 | | [place] [address] | [phone] | | | | | [phone] | | | +--------+ + + + [...]
--- OUTSIDE RECORDS SUMMARY | ~2019-02-20 | XMS | Encounter Summary ---
Demographics + + + | Address | [address] | | | [place] [address] | + + + | Home Phone [...] Author | [facility] | | | and Valerianoana | + + + | Organization | [facility] | | | and [...] [place], | | | | | [place] [address] | | + + + + + | Rahul Love . | ECON | [address] | | | | | [place] | | | | | [address] | | + + + + + Care Team Providers + +------+ + | Care Director Of Corporate Strategy Name | Role | Phone | + +------+ + PCP | Unavailable | + +------+ + Encounter Details +--------+ + + + + | Date | Type | Department | Care Team | Description | +--------+ + + + + | 08/14/ | Hospital | [facility] | Emanuel Huang | | | 2011 - | Encounter | MED CTR CANCER | MD Scar [address] | | | | | [place] [address] | [address] | | | 08/24/ | | [place], [place] | [place] [address] | | | 2011 | | [address] | [phone] | | | | | [phone] | | | +--------+ + + + [...] in 01/2008. [facility] Mariama states that [...] Baldomero York MD Radiation Oncology JOB #: [id number] EXT JOB #:[id number] cc: MD Emanuel Sagastume MD Dr. Andrew Bower [place] <Electronically Signed by Baldomero York MD> 09/02/11 [...] [address] | [place] | [phone] | | [facility] | | [address] | | | - LABORATORY | | | | + + + + + | [facility] | [address] | [place] | | | [facility] | | [address] | | | - LABORATORY | | [...] 11 | 7 - 18 mg/dL | [facility] | | | | | | [facility] | | | | | | MEDICAL | | | | | | CENTER - | | | | | | LABORATORY | | + + + + + + | Creatinine | 0.83 | 0.60 - 1.30 | [facility] | | | | | mg/dL | [facility] | | | | | | MEDICAL | | | | | | CENTER - | | | | | | LABORATORY | | + + + + + + | Estimated | >60Comment: For | >60 mL/min/A | [facility] | | | GFR | -Americans, | [...] + | [facility] | [address] | [place] | [phone] | | [facility] | | [address] | | | - LABORATORY | | | | + + + + + | [facility] | [address] | [place] | | | [facility] | | [address] | | | - LABORATORY | | | | + + + + + documented in this encounter Visit Diagnoses Not on filedocumented in this encounter"
--- OUTSIDE RECORDS SUMMARY | ~2019-02-20 | XMS | Encounter Summary ---
Demographics + + + | Address | [address] | | | [place] [address] | + + + | Home Phone | | + + + | Preferred Language | Unknown | + + + | Marital Status | | + + + | Church Affiliation | 1077 | + + + | Race | Unknown | + + + | Ethnic Group | Unknown | + + + Author + + + | Author | [facility] | | | and [place]er[place] | + + + | Organization | [facility] | | | and [place] | + + + | Address | Unknown | + + + | Phone | Unavailable | + + + Support + + + + + | Name | Relationship | Address | Phone | + + + + + | Scra Deleon | ECON | [address] | | | | | [place], | | | | | [place] [address] | | + + + + + | Rahul Love . | ECON | [address] | | | | | [place] | | | | | [address] | | + + + + + Care Team Providers + +------+ + | Care Sales Rep Name | Role | Phone | + [...] + + | 10/10/ | Emergency | [facility] | Armin Berger | Abdominal pain | | 2013 | | MED CTR EMERGENCY | MD Chris [address] | (Primary Dx) | | | | CENTER [address] | [address] [facility] | | | | | [place], [place] | [place] [address] | | | | | [address] | [phone] | | | | | [phone] | | | +--------+ + + + [...] + documented in this encounter Discharge Instructions Armin Mendieta MD - 10/10/2013Continue your usual medications and [...] | 1.010 | | | | | [place], | | | | | | [facility], [...] | | | ER staff by the [facility] radiologist on October 10, 2013 at [...] acuity. There is posterior vertebral spondylosis at [id number] level, contributing to at | | least [...] COMPRESSION DEFORMITY OF THE INFERIOR | | [id number] BODY COMPARED WITH STUDIES FROM 2009, BUT OTHERWISE OF UNCERTAINACUITY.5. | | SIMILAR PROMINENT, SERPIGINOUS VESSELS IN THE LEFT PELVIC CAVITY, WHICH MAYBE SEEN WITH | | PELVIC CONGESTION SYNDROME.Preliminary results of this study were reported to the ER | | [facility] on October 10, 2013 at 1 hours.Dictated and Signed | | by: Von [...] | |VERTEBRAL BODY COMPARED WITH STUDIES FROM 2008, BUT OTHERWISE OF UNCERTAIN | |ACUITY. | | | |5. SIMILAR PROMINENT, SERPIGINOUS VESSELS IN THE LEFT PELVIC CAVITY, WHICH MAY | |BE SEEN WITH PELVIC CONGESTION SYNDROME. | | | |Preliminary results of this study were reported to the ER staff [facility] the [facility] | |radiologist on October 10, 2013 at 1 hours. | | | |Dictated and Signed by: Von Bush MD | | Electronically signed: 10/11/2013 12:19 PM | + + + +---------+ + + | Performing | Address | City/State/Zipcode | Phone Number | | Organization | | | | + +---------+ + + | MISCELLANEOUS LAB | | | [phone] | + +---------+ + + | MISCELANIOUS LAB | | | [phone] | + +---------+ + + Lipase (10/10/2013 8:10 PM PDT) + +-------+ + + + | Component | Value | Ref Range | Performed | Pathologist | | | | | At | Signature | + +-------+ + + + | Lipase | 26 | 0 - 60 U/L | [facility] | | | | | | [facility] [...] + | [facility] | [address] | [place] | [phone] | | [facility] | | [address] | | | - LABORATORY | | | | + + + + + | [facility] | [address] | [place] | | | [facility] | | [address] | | | - LABORATORY | | [...] | | | FILTRATION | mL/min/1.73m2 | [facility] | | | [facility] | RATE,ESTIMATED | | MEDICAL | | | | mL/min/1.29j7Qair than | | CENTER - | | [...] | 8.9 | 8.3 - 10.5 | [facility] | | | | | mg/dL | [facility] | | | | | | MEDICAL | | | | | | CENTER - | | | | | | LABORATORY | | + + + + + + | Albumin | 4.0 | 3.2 - 5.0 g/dL | [facility] | | | | | | [facility] | | | | | | [...] + + | Performing | Address | City/State/[facility] | Phone Number | | Organization | | | | + + + + + | [facility] | [address] | [place] | [phone] | | [facility] | | [address] | | | - LABORATORY | | | | + + + + + | [facility] | [address] | [place] | | | [facility] | | [address] | | | - LABORATORY | | [...] | | | | M/uL | [facility] | | | | [...] + | [facility] | [address] | [place] | [phone] | | [facility] | | [address] | | | - LABORATORY | | | | + + + + + | [facility] | [address] | [place] | | | [facility] | | [address] | | | - LABORATORY | | [...] | | | | | 10/10/13 at 2000, For 1 dose | | PM PDT [...] | | | | | 10/10/13 at 2000, For 1 dose | | | | | | + + + +--------+-------+---+ +---------+ +--------+-------+---+ | New Bag | 10/11/19 | 1,000 | 2000 | | | | 14 7:55 | mLs | mL/hr | | | | PM PDT | | | | +---------+ +--------+-------+---+ +---+---+ | | | +---+---+ documented in this encounter
--- OUTSIDE RECORDS SUMMARY | ~2019-02-20 | XMS | Encounter Summary ---
Demographics + + + | Address | [address] | | | [place] [address] | + + + | Home Phone | | + + + | Preferred Language | Unknown | + + + | Marital Status | | + + + | Amish Affiliation | 1077 | + + + | Race | Unknown | + + + | Ethnic Group | Unknown | + + + Author + + + | Author | [facility] | | | and [place]er[place] | + + + | Organization | [facility] | | | and Valerianoana [...] [place], | | | | | [place] [address] | | + + + + + | Rahul Love . | ECON | [address] | | | | | [place] | | | | | [address] | | + + + + + Care Team Providers + +------+ + | Care Sheet Rock Hanger Name | Role | Phone | + [...] | | | | 06/24/ | | [place] | | | | 2008 | | [address] | | | | | | [phone] | | | +--------+ + + + [...]
--- OUTSIDE RECORDS SUMMARY | ~2019-02-20 | XMS | Encounter Summary ---
Demographics + + + | Address | [address] | | | [place] [address] | + + + | Home Phone | | + + + | Preferred Language | Unknown | + + + | Marital Status | | + + + | Christianity Affiliation | 1077 | + + + | Race | Unknown | + + + | Ethnic Group | Unknown | + + + Author + + + | Author | [facility] | | | and [place]er[place] | + + + | Organization | [facility] | | | and [...] [place], | | | | | [place] [address] | | + + + + + | Rahul Love . | ECON | [address] | | | | | [place] | | | | | [address] | | + + + + + Care Team Providers + +------+ + | Care Load Out Person Name | Role | Phone | + [...] | | | | 02/24/ | | [place] | | | | 2007 | | [address] | | | | | | [phone] | | | +--------+ + + + [...]
--- OUTSIDE RECORDS SUMMARY | ~2019-02-20 | XMS | Encounter Summary ---
Demographics + + + | Address | [address] | | | [place] [address] | + + + | Home Phone | | + + + | Preferred Language | Unknown | + + + | Marital Status | | + + + | Rastafarian Affiliation | 1077 | + + + | Race | Unknown | + + + | Ethnic Group | Unknown | + + + Author + + + | Author | [facility] | | | and Valerianoana | + + + | Organization | [facility] | | | and [...] [place], | | | | | [place] [address] | | + + + + + | Rahul Love . | ECON | [address] | | | | | [place] | | | | | [address] | | + + + + + Care Team Providers + +------+ + | Care Machine Heel Sprayer Name | Role | Phone | + +------+ + PCP | Unavailable | + +------+ + Encounter Details +--------+ + + + + | Date | Type | Department | Care Team | Description | +--------+ + + + + | 03/10/ | Hospital | [facility] | | | | 2009 - | Encounter | MED CTR CANCER | | | | | | CENTER [address] | | | | 03/27/ | | [place] | | | | 2009 | | [address] | | | | | | [phone] | | | +--------+ + + + [...]
--- OUTSIDE RECORDS SUMMARY | ~2019-02-20 | XMS | Encounter Summary ---
Demographics + + + | Address | [address] | | | [place] [address] | + + + | Home Phone | | + + + | Preferred Language | Unknown | + + + | Marital Status | | + + + | Latter Day Affiliation | 1077 | + + + | Race | Unknown | + + + | Ethnic Group | Unknown | + + + Author + + + | Author | [facility] | | | and Valerianoana | + + + | Organization | [facility] | | | and [...] [place], | | | | | [place] [address] | | + + + + + | Rahul Love . | ECON | [address] | | | | | [place] | | | | | [address] | | + + + + + Care Team Providers + +------+ + | Care Intermediate Manager Name | Role | Phone | + [...] | | | | 07/25/ | | [place] | | | | 2008 | | [address] | | | | | | [phone] | | | +--------+ + + + [...]
--- OUTSIDE RECORDS SUMMARY | ~2019-02-20 | XMS | Encounter Summary ---
Demographics + + + | Address | [address] | | | [place] [address] | + + + | Home Phone | | + + + | Preferred Language | Unknown | + + + | Marital Status | | + + + | Sabianist Affiliation | 1077 | + + + | Race | Unknown | + + + | Ethnic Group | Unknown | + + + Author + + + | Author | [facility] | | | and [place] | + + + | Organization | [facility] | | | and Valerianoana [...] [place], | | | | | [place] [address] | | + + + + + | Rahul Love . | ECON | [address] | | | | | [place] | | | | | [address] | | + + + + + Care Team Providers + +------+ + | Care Crew Member Name | Role | Phone | + [...] | | | | 11/24/ | | [place] | | | | 2008 | | [address] | | | | | | [phone] | | | +--------+ + + + [...]
--- OUTSIDE RECORDS SUMMARY | ~2019-02-20 | XMS | Encounter Summary ---
Demographics + + + | Address | [address] | | | [place] [address] | + + + | Home Phone [...] + + | Author | [facility] | | | and [place]er[place] | + + + | Organization | [facility] | | | and [...] [place], | | | | | [place] [address] | | + + + + + | Rahul Love . | ECON | [address] | | | | | [place] | | | | | [address] | | + + + + + Care Team Providers + +------+ + | Care Wanigan Clerk Name | Role | Phone | [...] | | | | 03/27/ | | [place] | | | | 2009 | | [address] | | | | | | [phone] | | | +--------+ + + + [...]
--- OUTSIDE RECORDS SUMMARY | ~2019-02-20 | XMS | Encounter Summary ---
Demographics + + + | Address | [address] | | | [place] [address] | + + + | Home Phone | | + + + | Preferred Language | Unknown | + + + | Marital Status | | + + + | Methodist Affiliation | 1077 | + + + | Race | Unknown | + + + | Ethnic Group | Unknown | + + + Author + + + | Author | [facility] | | | and Valer[place] | + + + | Organization | [facility] | | | and [...] [place], | | | | | [place] [address] | | + + + + + | Rahul Love . | ECON | [address] | | | | | [place], [place] | | | | | [address] | | + + + + + Care Team Providers + +------+ + | Care Boarder Steam Name | Role | Phone | + [...] [address] | | | | | [phone] | [address] | | | | | | [place] [address] | | | | | | [phone] | | | | | | | [...]
--- OUTSIDE RECORDS SUMMARY | ~2019-02-20 | XMS | Encounter Summary ---
Demographics + + + | Address | [address] | | | [place] [address] | + + + | Home Phone | | + + + | Preferred Language | Unknown | + + + | Marital Status | | + + + | Nondenominational Affiliation | 1077 | + + + | Race | Unknown | + + + | Ethnic Group | Unknown | + + + Author + + + | Author | [facility] | | | and [place]er[place] | + + + | Organization | [facility] | | | and [...] [place], | | | | | [place] [address] | | + + + + + | Rahul Love . | ECON | [address] | | | | | [place] | | | | | [address] | | + + + + + Care Team Providers + +------+ + | Care Dryerman/Woman Name | Role | Phone | + [...] | | | | 07/25/ | | [place] | | | | 2008 | | [address] | | | | | | [phone] | | | +--------+ + + + [...]
--- OUTSIDE RECORDS SUMMARY | ~2019-02-20 | XMS | Encounter Summary ---
Demographics + + + | Address | [address] | | | [place] [address] | + + + | Home Phone | | + + + | Preferred Language | Unknown | + + + | Marital Status | | + + + | Episcopal Affiliation | 1077 | + + + | Race | Unknown | + + + | Ethnic Group | Unknown | + + + Author + + + | Author | [facility] | | | and [place]er[place] | + + + | Organization | [facility] | | | and [...] [place], | | | | | [place] [address] | | + + + + + | Rahul Love . | ECON | [address] | | | | | [place] | | | | | [address] | | + + + + + Care Team Providers + +------+ + | Care Litigation Docket Manager Name | Role | Phone | + +------+ + PCP | Unavailable | + +------+ + Encounter Details +--------+ + + + + | Date | Type | Department | Care Team | Description | +--------+ + + + + | 01/19/ | Hospital | [facility] | Amanda Lombardo | | | 2007 | Encounter | MED CTR EMERGENCY | Judd Shoemaker MD [address] | | | | [place] [address] | [facility] | | | | | [place] | [place] [address] | | | | | [address] | [phone] | | | | | [phone] | | | +--------+ + + + [...]
--- OUTSIDE RECORDS SUMMARY | ~2019-02-20 | XMS | Encounter Summary ---
Demographics + + + | Address | [address] | | | [place] [address] | + + + | Home Phone | | + + + | Preferred Language | Unknown | + + + | Marital Status | | + + + | Pentecostal Affiliation | 1077 | + + + | Race | Unknown | + + + | Ethnic Group | Unknown | + + + Author + + + | Author | [facility] | | | and [place]er[place] | + + + | Organization | [facility] | | | and [...] [place], | | | | | [place] [address] | | + + + + + | Rahul Love . | ECON | [address] | | | | | [place] | | | | | [address] | | + + + + + Care Team Providers + +------+ + | Care Creative Project Manager Name | Role | Phone | [...] | | | | 02/24/ | | [place] | | | | 2010 | | [address] | | | | | | [phone] | | | +--------+ + + + [...] Baldomero York MD Radiation Oncology JOB #: [id number] EXT JOB #:[id number] cc: MD Henri Sagastume MD S. Maynard Bronstein, MD, PHD <Electronically Signed by Baldomero York MD> 02/25/11 0945 documented in this encounter Plan of Treatment Not on filedocumented as of this encounter Visit Diagnoses Not on filedocumented in this encounter"
--- OUTSIDE RECORDS SUMMARY | ~2019-02-20 | XMS | Encounter Summary ---
Demographics + + + | Address | [address] | | | [place] [address] | + + + | Home Phone [...] + + | Author | [facility] | | | and Valer[place] | + + + | Organization | [facility] | | | and [...] [place], | | | | | [place] [address] | | + + + + + | Rahul Love . | ECON | [address] | | | | | [place] | | | | | [address] | | + + + + + Care Team Providers + +------+ + | Care Licensed Mortgage Loan Officer Name | Role | Phone | + +------+ + PCP | Unavailable | + +------+ + Encounter Details +--------+ + + + + | Date | Type | Department | Care Team | Description | +--------+ + + + + | 12/10/ | Hospital | [facility] | [place], | | | 2007 - | Encounter | MED CTR OP INFUSION | Scar Diego MD [address] | | | | [address] | [address] [place] | | | 12/25/ | | [place], [place] | [place] [address] | | | 2007 | | [address] | [phone] | | | | | [phone] | | | +--------+ + + + [...]
--- OUTSIDE RECORDS SUMMARY | ~2019-02-20 | XMS | Encounter Summary ---
Demographics + + + | Address | [address] | | | [place] [address] | + + + | Home Phone [...] | Author | [facility] | | | and Valeriano[place] | + + + | Organization | [facility] | | | and Valerianoana [...] [place], | | | | | [place] [address] | | + + + + + | Rahul Love . | ECON | [address] | | | | | [place] | | | | | [address] | | + + + + + Care Team Providers + +------+ + | Care Axle And Frame Mechanic Name | Role | Phone | + +------+ + PCP | Unavailable | + +------+ + Encounter Details +--------+ + + + + | Date | Type | Department | Care Team | Description | +--------+ + + + + | 04/30/ | Hospital | [facility] | | | | 2008 - | Encounter | MED CTR CANCER | | | | | | CENTER [address] | | | | 05/25/ | | [place] | | | | 2008 | | [address] | | | | | | [phone] | | | +--------+ + + + [...]
--- OUTSIDE RECORDS SUMMARY | ~2019-02-20 | XMS | Encounter Summary ---
Demographics + + + | Address | [address] | | | [place] [address] | + + + | Home Phone | | + + + | Preferred Language | Unknown | + + + | Marital Status | | + + + | Jainism Affiliation | 1077 | + + + | Race | Unknown | + + + | Ethnic Group | Unknown | + + + Author + + + | Author | [facility] | | | and Valerianoana | + + + | Organization | [facility] | | | and Valer[place]ana | [...] [place], | | | | | [place] [address] | | + + + + + | Rahul Love . | ECON | [address] | | | | | [place] | | | | | [address] | | + + + + + Care Team Providers + +------+ + | Care Import Export Agent Name | Role | Phone | [...] | | | | 06/24/ | | [place] | | | | 2008 | | [address] | | | | | | [phone] | | | +--------+ + + + [...]
--- OUTSIDE RECORDS SUMMARY | ~2019-02-20 | XMS | Encounter Summary ---
Demographics + + + | Address | [address] | | | [place] [address] | + + + | Home Phone | | + + + | Preferred Language | Unknown | + + + | Marital Status | | + + + | Denominational Affiliation | 1077 | + + + | Race | Unknown | + + + | Ethnic Group | Unknown | + + + Author + + + | Author | [facility] | | | and Valer[place]ana | + + + | Organization | [facility] | | | and [...] [place], | | | | | [place] [address] | | + + + + + | Rahul Love . | ECON | [address] | | | | | [place] | | | | | [address] | | + + + + + Care Team Providers + +------+ + | Care Benefit Director Name | Role | Phone | [...] + + | 10/09/ | Emergency | [facility] | Armin Berger | Gas (Primary Dx) | | 2013 | | MED CTR EMERGENCY | MD Chris [address] | | | | | [place] [address] [place] | [facility] | | | | | [place], [place] | [place] [address] | | | | | [address] | [phone] | | | | | [phone] | | | +--------+ + + + [...] + | MISCELLANEOUS LAB | | | [phone] | + +---------+ + + | MISCELANIOUS LAB | | | [phone] | + +---------+ + + documented in this encounter Visit Diagnoses + + | Diagnosis | + + | Gas - Primary Flatulence, eructation, and gas pain | + + documented in this encounter
--- OUTSIDE RECORDS SUMMARY | ~2019-02-20 | XMS | Encounter Summary ---
Demographics + + + | Address | [address] | | | [place] [address] | + + + | Home Phone [...] + + | Author | [facility] | | | and Valerianoana | + + + | Organization | [facility] [...] [place], | | | | | [place] [address] | | + + + + + | Rahul Love . | ECON | [address] | | | | | [place] | | | | | [address] | | + + + + + Care Team Providers + +------+ + | Care Poultry Vaccinator Name | Role | Phone | + [...] + + | 10/10/ | Emergency | [facility] | Armni Berger | Abdominal pain | | 2013 | | MED CTR EMERGENCY | MD Chris [address] | (Primary Dx) | | | | CENTER [address] | [facility] | | | | | [place], [place] | [place] [address] | | | | | [address] | [phone] | | | | | [phone] | | | +--------+ + + + [...] | 1.010 | | | | | [place], | | | | | | [place], [...] | | | ER staff by the [facility] radiologist on October 10, 2013 at [...] acuity. There is posterior vertebral spondylosis at [id number] level, contributing to at | | least [...] COMPRESSION DEFORMITY OF THE INFERIOR | | [id number] BODY COMPARED WITH STUDIES FROM 2009, BUT OTHERWISE OF UNCERTAINACUITY.5. | | SIMILAR PROMINENT, SERPIGINOUS VESSELS IN THE LEFT PELVIC CAVITY, WHICH MAYBE SEEN WITH | | PELVIC CONGESTION SYNDROME.Preliminary results of this study were reported to the ER | | [facility] 1 [...] [facility] the [facility] | |radiologist on October 10, 2013 at 1 hours. | | | |Dictated and Signed by: Von Bush MD | | Electronically signed: 10/11/2013 12:19 PM | + + + +---------+ + + | Performing | Address | City/State/Zipcode | Phone Number | | Organization | | | | + +---------+ + + | MISCELLANEOUS LAB | | | [phone] | + +---------+ + + | MISCELANIOUS LAB | | | [phone] | + +---------+ + + Lipase (10/10/2013 [...] + | [facility] | [address] | [place] | [phone] | | [facility] | | [address] | | | - LABORATORY | | | | + + + + + | [facility] | [address] | [place] | | | [facility] | | [address] | | | - LABORATORY | | [...] mL/min/1.73m2 | [facility] | | | [place] | RATE,ESTIMATED | | MEDICAL | | | | mL/min/1.85q2Ifan than | | CENTER - | | [...] | 8.9 | 8.3 - 10.5 | [place] | | | | | mg/dL | [facility] | | | | | | MEDICAL | | | | | | CENTER - | | | | | | LABORATORY | | + + + + + + | Albumin | 4.0 | 3.2 - 5.0 g/dL | [facility] | | | | | | [facility] | | | | | | [...] + + | Performing | Address | City/State/Rustcode | Phone Number | | Organization | | | | + + + + + | [facility] | [address] | [place] | [phone] | | [facility] | | [address] | | | - LABORATORY | | | | + + + + + | [facility] | [address] | [place] | | | [facility] | | [address] | | | - LABORATORY | | [...] ST. | [address] | [place] | [phone] | | [facility] | | [address] | | | - LABORATORY | | | | + + + + + | [facility] | [address] | [place] | | | [facility] | | [address] | | | - LABORATORY | | [...]
--- OUTSIDE RECORDS SUMMARY | ~2019-02-20 | XMS | Encounter Summary ---
Demographics + + + | Address | [address] | | | [place] [address] | + + + | Home Phone | | + + + | Preferred Language | Unknown | + + + | Marital Status | | + + + | Scientology Affiliation | 1077 | + + + | Race | Unknown | + + + | Ethnic Group | Unknown | + + + Author + + + | Author | [facility] | | | and Valerianoana | + + + | Organization | [facility] | | | and Valerianoana [...] [place], | | | | | [place] [address] | | + + + + + | Rahul Love . | ECON | [address] | | | | | [place] | | | | | [address] | | + + + + + Care Team Providers + +------+ + | Care Employee Adviser Name | Role | Phone | + [...] | | | | 05/25/ | | [place] | | | | 2008 | | [address] | | | | | | [phone] | | | +--------+ + + + [...]
--- OUTSIDE RECORDS SUMMARY | ~2019-02-20 | XMS | Encounter Summary ---
Demographics + + + | Address | [address] | | | [place] [address] | + + + | Home Phone | | + + + | Preferred Language | Unknown | + + + | Marital Status | | + + + | Uatsdin Affiliation | 1077 | + + + | Race | Unknown | + + + | Ethnic Group | Unknown | + + + Author + + + | Author | [facility] | | | and Valerianoana | + + + | Organization | [facility] | | | and Valerianoana [...] [place], | | | | | [place] [address] | | + + + + + | Rahul Love . | ECON | [address] | | | | | [place] | | | | | [address] | | + + + + + Care Team Providers + +------+ + | Care Human Resource Professional Name | Role | Phone | + +------+ + PCP | Unavailable | + +------+ + Encounter Details +--------+ + + + + | Date | Type | Department | Care Team | Description | +--------+ + + + + | 01/19/ | Hospital | [facility] | Amanda Lombardo | | | 2007 | Encounter | MED CTR EMERGENCY | Judd Shoemaker MD [address] | | | | | [place] [address] | [facility] | | | | | [place] | [place] [address] | | | | | [address] | [phone] | | | | | [phone] | | | +--------+ + + + [...]
--- OUTSIDE RECORDS SUMMARY | ~2019-02-20 | XMS | Encounter Summary ---
Demographics + + + | Address | [address] | | | [place] [address] | + + + | Home Phone [...] | Author | [facility] | | | and Valerianoana | + + + | Organization | [facility] | | | and Valerianoana [...] [place], | | | | | [place] [address] | | + + + + + | Rahul Love . | ECON | [address] | | | | | [place] | | | | | [address] | | + + + + + Care Team Providers + +------+ + | Care Tree Climber Name | Role | Phone | + +------+ + PCP | Unavailable | + +------+ + Encounter Details +--------+ + + + + | Date | Type | Department | Care Team | Description | +--------+ + + + + | 07/22/ | Hospital | [facility] | [place] | | | 2008 | Encounter | MED CTR EMERGENCY | Judd Shoemaker MD [address] | | | | | [place] [address] | [facility] | | | | | [place] | [place] [address] | | | | | [address] | [phone] | | | | | [phone] | | | +--------+ + + + [...]
--- OUTSIDE RECORDS SUMMARY | ~2019-02-20 | XMS | Encounter Summary ---
Demographics + + + | Address | [address] | | | [place] [address] | + + + | Home Phone | | + + + | Preferred Language | Unknown | + + + | Marital Status | | + + + | Jew Affiliation | 1077 | + + + | Race | Unknown | + + + | Ethnic Group | Unknown | + + + Author + + + | Author | [facility] | | | and Valerianoana | + + + | Organization | [facility] | | | and Valerianoana [...] [place], | | | | | [place] [address] | | + + + + + | Rahul Love . | ECON | [address] | | | | | [place] | | | | | [address] | | + + + + + Care Team Providers + +------+ + | Care Sausage Smoker Name | Role | Phone | + [...] | | | | 03/27/ | | [place] | | | | 2009 | | [address] | | | | | | [phone] | | | +--------+ + + + [...]
--- OUTSIDE RECORDS SUMMARY | ~2019-02-20 | XMS | Encounter Summary ---
Demographics + + + | Address | [address] | | | [place] [address] | + + + | Home Phone | | + + + | Preferred Language | Unknown | + + + | Marital Status | | + + + | Caodaism Affiliation | 1077 | + + + | Race | Unknown | + + + | Ethnic Group | Unknown | + + + Author + + + | Author | [facility] | | | and Valerianoana | + + + | Organization | [facility] | | | and Valerianoana [...] [place], | | | | | [place] [address] | | + + + + + | Rahul Love . | ECON | [address] | | | | | [place] | | | | | [address] | | + + + + + Care Team Providers + +------+ + | Care Hat Brim And Crown Laminating Operator Name | Role | Phone | + +------+ + PCP | Unavailable | + +------+ + Encounter Details +--------+ + + + + | Date | Type | Department | Care Team | Description | +--------+ + + + + | 01/01/ | Hospital | [facility] | | | | 2007 - | Encounter | MED CTR CANCER | | | | | | CENTER [address] | | | | 01/24/ | | [place] | | | | 2007 | | [address] | | | | | | [phone] | | | +--------+ + + + [...]
--- OUTSIDE RECORDS SUMMARY | ~2019-02-20 | XMS | Encounter Summary ---
Demographics + + + | Address | [address] | | | [place] [address] | + + + | Home Phone | | + + + | Preferred Language | Unknown | + + + | Marital Status | | + + + | Pentecostal Affiliation | 1077 | + + + | Race | Unknown | + + + | Ethnic Group | Unknown | + + + Author + + + | Author | [facility] | | | and Valerianoana | + + + | Organization | [facility] | | [...] [place], | | | | | [place] [address] | | + + + + + | Rahul Love . | ECON | [address] | | | | | [place] | | | | | [address] | | + + + + + Care Team Providers + +------+ + | Care Program Trainer Name | Role | Phone | + [...] | | | | 05/25/ | | [place] | | | | 2008 | | [address] | | | | | | [phone] | | | +--------+ + + + [...]
--- OUTSIDE RECORDS SUMMARY | ~2019-02-20 | XMS | Encounter Summary ---
Demographics + + + | Address | [address] | | | [place] [address] | + + + | Home Phone | | + + + | Preferred Language | Unknown | + + + | Marital Status | | + + + | Lutheran Affiliation | 1077 | + + + | Race | Unknown | + + + | Ethnic Group | Unknown | + + + Author + + + | Author | [facility] | | | and Valerianoana | + + + | Organization | [facility] | | | and [...] [place], | | | | | [place] [address] | | + + + + + | Rahul Love . | ECON | [address] | | | | | [place] | | | | | [address] | | + + + + + Care Team Providers + +------+ + | Care Retail Coverage Merchandiser Lead Name | Role | Phone | + +------+ + PCP | Unavailable | + +------+ + Encounter Details +--------+ + + + + | Date | Type | Department | Care Team | Description | +--------+ + + + + | 07/22/ | Hospital | [facility] | [place] | | | 2008 | Encounter | MED CTR EMERGENCY | Judd Shoemaker MD [address] | | | | | [place] [address] | [facility] | | | | | [place] | [place] [address] | | | | | [address] | [phone] | | | | | [phone] | | | +--------+ + + + [...]
--- OUTSIDE RECORDS SUMMARY | ~2019-02-20 | XMS | Encounter Summary ---
Demographics + + + | Address | [address] | | | [place] [address] | + + + | Home Phone | | + + + | Preferred Language | Unknown | + + + | Marital Status | | + + + | Pentecostalism Affiliation | 1077 | + + + | Race | Unknown | + + + | Ethnic Group | Unknown | + + + Author + + + | Author | [facility] | | | and Valerianoana | + + + | Organization | [facility] | | | and [...] [place], | | | | | [place] [address] | | + + + + + | Rahul Love . | ECON | [address] | | | | | [place] | | | | | [address] | | + + + + + Care Team Providers + +------+ + | Care Radio Intelligence Operator Name | Role | Phone | [...] | | | | 10/25/ | | [place] | | | | 2009 | | [address] | | | | | | [phone] | | | +--------+ + + + [...]
--- OUTSIDE RECORDS SUMMARY | ~2019-02-20 | XMS | Encounter Summary ---
Demographics + + + | Address | [address] | | | [place] [address] | + + + | Home Phone | | + + + | Preferred Language | Unknown | + + + | Marital Status | | + + + | Mandaen Affiliation | 1077 | + + + | Race | Unknown | + + + | Ethnic Group | Unknown | + + + Author + + + | Author | [facility] | | | and Valerianoana | + + + | Organization | [facility] | | | and [...] [place], | | | | | [place] [address] | | + + + + + | Rahul Love . | ECON | [address] | | | | | [place] | | | | | [address] | | + + + + + Care Team Providers + +------+ + | Care Sample Mounter Name | Role | Phone | + [...] | | | | 11/24/ | | [place] | | | | 2008 | | [address] | | | | | | [phone] | | | +--------+ + + + [...]
--- OUTSIDE RECORDS SUMMARY | ~2019-02-20 | XMS | Encounter Summary ---
Demographics + + + | Address | [address] | | | [place] [address] | + + + | Home Phone | | + + + | Preferred Language | Unknown | + + + | Marital Status | | + + + | Worship Affiliation | 1077 | + + + | Race | Unknown | + + + | Ethnic Group | Unknown | + + + Author + + + | Author | [facility] | | | and Valerianoana | + + + | Organization | [facility] | | | and Valerianoana | + + + | Address | Unknown | + + + | Phone | Unavailable | + + + Support + + + + + | Name | Relationship | Address | Phone | + + + + + | Scar Deleno | ECON | [address] | | | | | [place], | | | | | [place] [address] | | + + + + + | Rahul Love . | ECON | [address] | | | | | [place] | | | | | [address] | | + + + + + Care Team Providers + +------+ + | Care Roller Leveler Name | Role | Phone | + +------+ + PCP | Unavailable | + +------+ + Encounter Details +--------+ + + + + | Date | Type | Department | Care Team | Description | +--------+ + + + + | 01/23/ | Hospital | [facility] | [place], | | | 2007 - | Encounter | MED CTR MED ONC | Scar Diego MD [address] | | | | | [address] [place] | [address] [place] | | | 01/30/ | | [place] [address] | [place] [address] | | | 2007 | | [phone] | [phone] | | | | | | | [...]
--- OUTSIDE RECORDS SUMMARY | ~2019-02-20 | XMS | Encounter Summary ---
Demographics + + + | Address | [address] | | | [place] [address] | + + + | Home Phone | | + + + | Preferred Language | Unknown | + + + | Marital Status | | + + + | Zoroastrianism Affiliation | 1077 | + + + | Race | Unknown | + + + | Ethnic Group | Unknown | + + + Author + + + | Author | [facility] | | | and Valerianoana | + + + | Organization | [facility] | | | and [...] [place], | | | | | [place] [address] | | + + + + + | Rahul Love . | ECON | [address] | | | | | [place] | | | | | [address] | | + + + + + Care Team Providers + +------+ + | Care Paper Testing Supervisor Name | Role | Phone | + +------+ + PCP | Unavailable | + +------+ + Encounter Details +--------+ + + + + | Date | Type | Department | Care Team | Description | +--------+ + + + + | 12/28/ | Hospital | [facility] | [place], | | | 2007 - | Encounter | MED CTR GENERIC OP | Scar Diego MD [address] | | | | | ER[facility] DEPT [address] | [address] [place] | | | 01/20/ | | [place], | [place] [address] | | | 2007 | | [place] [address] | [phone] | | | | | [phone] | | | +--------+ + + + [...]
--- OUTSIDE RECORDS SUMMARY | ~2019-02-20 | XMS | Encounter Summary ---
Demographics + + + | Address | [address] | | | [place] [address] | + + + | Home Phone | | + + + | Preferred Language | Unknown | + + + | Marital Status | | + + + | Anabaptist Affiliation | 1077 | + + + | Race | Unknown | + + + | Ethnic Group | Unknown | + + + Author + + + | Author | [facility] | | | and Valerianoana | + + + | Organization | [facility] | | | and [...] [place], | | | | | [place] [address] | | + + + + + | Rahul Love . | ECON | [address] | | | | | [place] | | | | | [address] | | + + + + + Care Team Providers + +------+ + | Care Java Developer With Security Clearance Name | Role | Phone | + +------+ + PCP | Unavailable | + +------+ + Encounter Details +--------+ + + + + | Date | Type | Department | Care Team | Description | +--------+ + + + + | 07/01/ | Hospital | [facility] | | | | 2009 - | Encounter | MED CTR CANCER | | | | | | CENTER [address] | | | | 07/25/ | | [place] | | | | 2009 | | [address] | | | | | | [phone] | | | +--------+ + + + [...]
--- OUTSIDE RECORDS SUMMARY | ~2019-02-20 | XMS | Encounter Summary ---
Demographics + + + | Address | [address] | | | [place] [address] | + + + | Home Phone [...] Author | [facility] | | | and Valerianoana | + + + | Organization | [facility] | | | and Valerianoana | [...] [place], | | | | | [place] [address] | | + + + + + | Rahul Love . | ECON | [address] | | | | | [place] | | | | | [address] | | + + + + + Care Team Providers + +------+ + | Care Human Resource Officer Name | Role | Phone | + +------+ + PCP | Unavailable | + +------+ + Encounter Details +--------+ + + + + | Date | Type | Department | Care Team | Description | +--------+ + + + + | 07/07/ | Hospital | [facility] | | | | 2010 - | Encounter | MED CTR CANCER | | | | | | CENTER [address] | | | | 07/25/ | | [place] | | | | 2010 | | [address] | | | | | | [phone] | | | +--------+ + + + [...] an anal dilat or. She and her brewery representative tell me that it is becoming easier and easier for her to use it. PLAN: She will continue to see Dr. Azul. As noted, a full colonoscopy is planned in [facility]. She had proctoscopy about 6 months ago. An appointment was made for her to return her e after that colonoscopy for a routine follow up visit. DICTATED BY: Jorden Shahid M.D. Radiation Oncology JOB #: [id number] EXT JOB #:[id number] EDITED: 07/10/2010 08:37 cc: Mckayla Styles MD, [...] | | | | | mg/dL | [facility] | | | | [...] | | ine Ratio | | | . [facility] | | [...] | 10.4 | 6.0 - 17.0 | [facility] | | | | | [...] [address] | [place] | [phone] | | [facility] | | [address] | | | - LABORATORY | | | | + + + + + | [facility] | [address] | [place], [place] | | | [facility] | | [address] | | | - LABORATORY | | | | + + + + + Lactate Dehydrogenase (07/07/2010 10:07 AM PDT) + +-------+ + + + | Component | Value | Ref Range | Performed | Pathologist | | | | | At | Signature | + +-------+ + + + | LDH TOTAL | 136 | 91 - 180 IU/L | [facility] | | | | | | [facility] [...] + | [facility] | [address] | [place], [place] | [phone] | | [facility] | | [address] | | | - LABORATORY | | | | + + + + + | [facility] | [address] | [place], [place] | | | [facility] | | [address] | | | - LABORATORY | | [...] | + + + + + | [facility] | [address] | [place], [place] | [phone] | | [facility] | | [address] | | | - LABORATORY | | | | + + + + + | [facility] | [address] | [place], [place] | | | [facility] | | [address] | | | - LABORATORY | | | | + + + + + documented in this encounter Visit Diagnoses Not on filedocumented in this encounter"
--- OUTSIDE RECORDS SUMMARY | ~2019-02-20 | XMS | Encounter Summary ---
Demographics + + + | Address | [address] | | | [place] [address] | + + + | Home Phone | | + + + | Preferred Language | Unknown | + + + | Marital Status | | + + + | Sikh Affiliation | 1077 | + + + | Race | Unknown | + + + | Ethnic Group | Unknown | + + + Author + + + | Author | [facility] | | | and Valerianoana | + + + | Organization | [facility] | | | and [...] [place], | | | | | [place] [address] | | + + + + + | Rahul Love . | ECON | [address] | | | | | [place] | | | | | [address] | | + + + + + Care Team Providers + +------+ + | Care Darkroom Worker Name | Role | Phone | [...] | | | | 12/25/ | | [place], [place] | | | | 2007 | | [address] | | | | | | [phone] | | | +--------+ + + + [...]
--- OUTSIDE RECORDS SUMMARY | ~2019-02-20 | XMS | Clinical Summary ---
Demographics + + + | Address | [address] | | | [place] [address] | + + + | Home Phone [...] | Author | [facility] | | | and Valerianoana | + + + | Organization | [facility] | | | and Valerianoana [...] [place], | | | | | [place] [address] | | + + + + + | Rahul Love . | ECON | [address] | | | | | [place] | | | | | [address] | | + + + + + Care Team Providers + +------+ + | Care Steel Analyst Name | Role | Phone | + [...] +--------+ +---------+--------+ | MEDICARE | MEDICA | [id number] | 06/25/18 | [phone] | | Medica | | | RE | | 97-Pre | 5 | | re | | | PART A | | sent | | | | | | AND B | | | | | | + +--------+ +--------+ +---------+--------+ | COMMERCIAL GENERIC | BH | [id number] | | | | Indemn | | [...] | | al/Fam | | 1931 | [phone] | [place] [address] | | | danielle | | | 5 (Home) | | + +--------+ +--------+ + + Advance Directives + + + + + | Type | Date Recorded | Patient | Explanation | | | | Midwife | | + + + + + | Power of | | | | | Director Educational Radio | | | | + + + + + | Advance | 10/09/2013 7:51 | | | | Directive | PM | | | + + + + +
--- OUTSIDE RECORDS SUMMARY | ~2019-02-20 | XMS | Encounter Summary ---
Demographics + + + | Address | [address] | | | [place] [address] | + + + | Home Phone | | + + + | Preferred Language | Unknown | + + + | Marital Status | | + + + | Catholic Affiliation | 1077 | + + + | Race | Unknown | + + + | Ethnic Group | Unknown | + + + Author + + + | Author | [facility] | | | and Valerianoana | + + + | Organization | [facility] | | | and [...] [place], | | | | | [place] [address] | | + + + + + | Rahul Love . | ECON | [address] | | | | | [place] | | | | | [address] | | + + + + + Care Team Providers + +------+ + | Care Tail Worker Name | Role | Phone | [...] | | | | 03/27/ | | [place] | | | | 2008 | | [address] | | | | | | [phone] | | | +--------+ + + + [...]
--- OUTSIDE RECORDS SUMMARY | ~2019-02-20 | XMS | Encounter Summary ---
Demographics + + + | Address | [address] | | | [place] [address] | + + + | Home Phone [...] | Author | [facility] | | | and Valerianoana | + + + | Organization | [facility] | | | and [...] [place], | | | | | [place] [address] | | + + + + + | Rahul Love . | ECON | [address] | | | | | [place] | | | | | [address] | | + + + + + Care Team Providers + +------+ + | Care Personnel Specialist Name | Role | Phone | [...] + + | 10/10/ | Emergency | [facility] | Armin Berger | Abdominal pain | | 2013 | | MED CTR EMERGENCY | MD Chris [address] | (Primary Dx) | | | | CENTER [address] | [address] [facility] | | | | | [place], [place] | [place] [address] | | | | | [address] | [phone] | | | | | [phone] | | | +--------+ + + + [...] | 1.010 | | | | | [place], | | | | | | [facility], [...] | | | ER staff by the [facility] radiologist on October 10, 2013 at 2051 [...] acuity. 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 | | | |Dictated and Signed by: Von Bush MD | | Electronically signed: 10/11/2013 12:19 PM | + + + +---------+ + + | Performing | Address | City/State/Zipcode | Phone Number | | Organization | | | | + +---------+ + + | MISCELLANEOUS LAB | | | [phone] | + +---------+ + + | MISCELANIOUS LAB | | | [phone] | + +---------+ + + Lipase (10/10/2013 [...] + | [facility] | [address] | [place] | [phone] | | [facility] | | [address] | | | - LABORATORY | | | | + + + + + | [facility] | [address] | [place] | | | [facility] | | [address] | | | - LABORATORY | | [...] mL/min/1.73m2 | [facility] | | | [place] | RATE,ESTIMATED | | MEDICAL | | | | mL/min/1.76o3Pufc than | | CENTER - | | [...] | 8.9 | 8.3 - 10.5 | [place] | | | | | mg/dL | [facility] | | | | | | MEDICAL | | | | | | CENTER - | | | | | | LABORATORY | | + + + + + + | Albumin | 4.0 | 3.2 - 5.0 g/dL | [facility] | | | | | | [facility] | | | | | | [...] + + | Performing | Address | City/State/[facility] | Phone Number | | Organization | | | | + + + + + | [facility] | [address] | [place] | [phone] | | [facility] | | [address] | | | - LABORATORY | | | | + + + + + | [facility] | [address] | [place] | | | [facility] | | [address] | | | - LABORATORY | | [...] ST. | [address] | [place] | [phone] | | [facility] | | [address] | | | - LABORATORY | | | | + + + + + | [facility] | [address] | [place] | | | [facility] | | [address] | | | - LABORATORY | | [...]
--- OUTSIDE RECORDS SUMMARY | ~2019-02-20 | XMS | Encounter Summary ---
Demographics + + + | Address | [address] | | | [place] [address] | + + + | Home Phone | | + + + | Preferred Language | Unknown | + + + | Marital Status | | + + + | Congregational Affiliation | 1077 | + + + | Race | Unknown | + + + | Ethnic Group | Unknown | + + + Author + + + | Author | [facility] | | | and Valerianoana | + + + | Organization | [facility] | | | and Valerianoana [...] [place], | | | | | [place] [address] | | + + + + + | Rahul Love . | ECON | [address] | | | | | [place] | | | | | [address] | | + + + + + Care Team Providers + +------+ + | Care Manufacturing Design Engineer Name | Role | Phone | [...] | | | | 01/24/ | | [place] | | | | 2007 | | [address] | | | | | | [phone] | | | +--------+ + + + [...]
--- OUTSIDE RECORDS SUMMARY | ~2019-02-20 | XMS | Encounter Summary ---
Demographics + + + | Address | [address] | | | [place] [address] | + + + | Home Phone [...] | Author | [facility] | | | and Valerianoana | + + + | Organization | [facility] | | | and [...] [place], | | | | | [place] [address] | | + + + + + | Rahul Love . | ECON | [address] | | | | | [place] | | | | | [address] | | + + + + + Care Team Providers + +------+ + | Care Spinner Frame Name | Role | Phone | + [...] | | | | 02/24/ | | [place] | | | | 2010 | | [address] | | | | | | [phone] | | | +--------+ + + + [...] Baldomero York MD Radiation Oncology JOB #: [id number] EXT JOB #:[id number] cc: MD Henri Sagastume MD S. Maynard Bronstein, MD, PHD <Electronically Signed by Baldomero York MD> 02/25/11 0945 documented in this encounter Plan of Treatment Not on filedocumented as of this encounter Visit Diagnoses Not on filedocumented in this encounter"
--- OUTSIDE RECORDS SUMMARY | ~2019-02-20 | XMS | Encounter Summary ---
Demographics + + + | Address | [address] | | | [place] [address] | + + + | Home Phone | | + + + | Preferred Language | Unknown | + + + | Marital Status | | + + + | Restorationist Affiliation | 1077 | + + + | Race | Unknown | + + + | Ethnic Group | Unknown | + + + Author + + + | Author | [facility] | | | and Valerianoana | + + + | Organization | [facility] | | | and [...] [place], | | | | | [place] [address] | | + + + + + | Rahul Love . | ECON | [address] | | | | | [place] | | | | | [address] | | + + + + + Care Team Providers + +------+ + | Care Clinical Nursing Intern Name | Role | Phone | + +------+ + PCP | Unavailable | + +------+ + Encounter Details +--------+ + + + + | Date | Type | Department | Care Team | Description | +--------+ + + + + | 12/28/ | Hospital | [facility] | [place], | | | 2007 - | Encounter | MED CTR GENERIC OP | Scar Diego MD [address] | | | | | ERAN DEPT [address] | [address] [place] | | | 01/20/ | | [place], | [place] [address] | | | 2007 | | [place] [address] | [phone] | | | | | [phone] | | | +--------+ + + + [...]
--- OUTSIDE RECORDS SUMMARY | ~2019-02-20 | XMS | Encounter Summary ---
Demographics + + + | Address | [address] | | | [place] [address] | + + + | Home Phone [...] + | Author | [facility] | | | and Valerianoana | + + + | Organization | [facility] | [...] [place], | | | | | [place] [address] | | + + + + + | Rahul Love . | ECON | [address] | | | | | [place] | | | | | [address] | | + + + + + Care Team Providers + +------+ + | Care Makeup Editor Name | Role | Phone | + [...] | | | | 03/27/ | | [place] | | | | 2008 | | [address] | | | | | | [phone] | | | +--------+ + + + [...]
--- OUTSIDE RECORDS SUMMARY | ~2019-02-20 | XMS | Encounter Summary ---
Demographics + + + | Address | [address] | | | [place] [address] | + + + | Home Phone | | + + + | Preferred Language | Unknown | + + + | Marital Status | | + + + | Islam Affiliation | 1077 | + + + | Race | Unknown | + + + | Ethnic Group | Unknown | + + + Author + + + | Author | [facility] | | | and Valerianoana | + + + | Organization | [facility] | | | and Valerianoana [...] [place], | | | | | [place] [address] | | + + + + + | Rahul Love . | ECON | [address] | | | | | [place] | | | | | [address] | | + + + + + Care Team Providers + +------+ + | Care Dairy Technologist Name | Role | Phone | + [...] | | | | 07/25/ | | [place] | | | | 2010 | | [address] | | | | | | [phone] | | | +--------+ + + + [...] an anal dilat or. She and her digital archivist tell me that it is becoming easier and easier for her to use it. PLAN: She will continue to see Dr. Azul. As noted, a full colonoscopy is planned in [facility]. She had proctoscopy about 6 months ago. An appointment was made for her to return her e after that colonoscopy for a routine follow up visit. DICTATED BY: Jorden Shahid M.D. Radiation Oncology JOB #: [id number] EXT JOB #:[id number] EDITED: 07/10/2010 08:37 cc: Mckayla Styles MD, [...] | GFR | -Americans, | | [facility] | | | | please multiply the [...] [address] | [place] | [phone] | | [facility] | | [address] | | | - LABORATORY | | | | + + + + + | [facility] | [address] | [place], [place] | | | [facility] | | [address] | | | - LABORATORY | | [...] + | [facility] | [address] | [place], [place] | [phone] | | [facility] | | [address] | | | - LABORATORY | | | | + + + + + | [facility] | [address] | [place], [place] | | | [facility] | | [address] | | | - LABORATORY | | [...] | + + + + + | [facility] | [address] | [place], [place] | [phone] | | [facility] | | [address] | | | - LABORATORY | | | | + + + + + | [facility] | [address] | [place], [place] | | | [facility] | | [address] | | | - LABORATORY | | | | + + + + + documented in this encounter Visit Diagnoses Not on filedocumented in this encounter"
--- OUTSIDE RECORDS SUMMARY | ~2019-02-20 | XMS | Encounter Summary ---
Demographics + + + | Address | [address] | | | [place] [address] | + + + | Home Phone [...] | Author | [facility] | | | and Valerianoana | + + + | Organization | [facility] | | | and Valerianoana [...] [place], | | | | | [place] [address] | | + + + + + | Rahul Love . | ECON | [address] | | | | | [place] | | | | | [address] | | + + + + + Care Team Providers + +------+ + | Care Store Leader Name | Role | Phone | + [...] + + | 10/09/ | Emergency | [facility] | Armin Berger | Gas (Primary Dx) | | 2013 | | MED CTR EMERGENCY | MD Chris [address] | | | | | [place] [address] | [facility] | | | | | [place], [place] | [place] [address] | | | | | [address] | [phone] | | | | | [phone] | | | +--------+ + + + [...] + | MISCELLANEOUS LAB | | | [phone] | + +---------+ + + | MISCELANIOUS LAB | | | [phone] | + +---------+ + + documented in this encounter Visit Diagnoses + + | Diagnosis | + + | Gas - Primary Flatulence, eructation, and gas pain | + + documented in this encounter
--- OUTSIDE RECORDS SUMMARY | ~2019-02-20 | XMS | Encounter Summary ---
Demographics + + + | Address | [address] | | | [place] [address] | + + + | Home Phone | | + + + | Preferred Language | Unknown | + + + | Marital Status | | + + + | Church Affiliation | 1077 | + + + | Race | Unknown | + + + | Ethnic Group | Unknown | + + + Author + + + | Author | [facility] | | | and Valerianoana | + + + | Organization | [facility] | | | and Valerianoana [...] [place], | | | | | [place] [address] | | + + + + + | Rahul Love . | ECON | [address] | | | | | [place] | | | | | [address] | | + + + + + Care Team Providers + +------+ + | Care Program Attendant Name | Role | Phone | + [...] | | | | 07/25/ | | [place] | | | | 2009 | | [address] | | | | | | [phone] | | | +--------+ + + + [...]
--- OUTSIDE RECORDS SUMMARY | ~2019-02-20 | XMS | Encounter Summary ---
Demographics + + + | Address | [address] | | | [place] [address] | + + + | Home Phone | | + + + | Preferred Language | Unknown | + + + | Marital Status | | + + + | Yazidism Affiliation | 1077 | + + + | Race | Unknown | + + + | Ethnic Group | Unknown | + + + Author + + + | Author | [facility] | | | and Valerianoana | + + + | Organization | [facility] [...] [place], | | | | | [place] [address] | | + + + + + | Rahul Love . | ECON | [address] | | | | | [place] | | | | | [address] | | + + + + + Care Team Providers + +------+ + | Care Economics Teacher Name | Role | Phone | + +------+ + PCP | Unavailable | + +------+ + Encounter Details +--------+ + + + + | Date | Type | Department | Care Team | Description | +--------+ + + + + | 12/10/ | Hospital | [facility] | [place], | | | 2007 - | Encounter | MED CTR OP INFUSION | Scar Diego MD [address] | | | | | [address] | [address] [place] | | | 12/25/ | | [place], [place] | [place] [address] | | | 2007 | | [address] | [phone] | | | | | [phone] | | | +--------+ + + + [...]
--- OUTSIDE RECORDS SUMMARY | ~2019-02-20 | XMS | Encounter Summary ---
Demographics + + + | Address | [address] | | | [place] [address] | + + + | Home Phone | | + + + | Preferred Language | Unknown | + + + | Marital Status | | + + + | Uatsdin Affiliation | 1077 | + + + | Race | Unknown | + + + | Ethnic Group | Unknown | + + + Author + + + | Author | [facility] | | | and Valerianoana | + + + | Organization | [facility] | | | and [...] [place], | | | | | [place] [address] | | + + + + + | Rahul Love . | ECON | [address] | | | | | [place] | | | | | [address] | | + + + + + Care Team Providers + +------+ + | Care Materials Scientist Name | Role | Phone | + [...] | | | | 07/25/ | | [place] | | | | 2009 | | [address] | | | | | | [phone] | | | +--------+ + + + [...]
--- OUTSIDE RECORDS SUMMARY | ~2019-02-20 | XMS | Encounter Summary ---
Demographics + + + | Address | [address] | | | [place] [address] | + + + | Home Phone [...] + + + | Author | [facility] | | | and Valerianoana | + + + | Organization | [facility] | | | and Valerianoana | [...] [place], | | | | | [place] [address] | | + + + + + | Rahul Love . | ECON | [address] | | | | | [place] | | | | | [address] | | + + + + + Care Team Providers + +------+ + | Care Process Project Engineer Name | Role | Phone | [...] | | | | 02/24/ | | [place] | | | | 2007 | | [address] | | | | | | [phone] | | | +--------+ + + + [...]
--- OUTSIDE RECORDS SUMMARY | ~2019-02-20 | XMS | Encounter Summary ---
Demographics + + + | Address | [address] | | | [place] [address] | + + + | Home Phone [...] | Author | [facility] | | | and Valerianoana | + + + | Organization | [facility] | [...] [place], | | | | | [place] [address] | | + + + + + | Rahul Love . | ECON | [address] | | | | | [place] | | | | | [address] | | + + + + + Care Team Providers + +------+ + | Care Scrum Product Owner Name | Role | Phone | + [...] | | | | 12/25/ | | [place], [place] | | | | 2007 | | [address] | | | | | | [phone] | | | +--------+ + + + [...]
--- OUTSIDE RECORDS SUMMARY | ~2019-02-20 | XMS | Encounter Summary ---
Demographics + + + | Address | [address] | | | [place] [address] | + + + | Home Phone [...] + | Author | [facility] | | | and Valerianoana | + + + | Organization | [facility] | | | and [...] [place], | | | | | [place] [address] | | + + + + + | Rahul Love . | ECON | [address] | | | | | [place], [place] | | | | | [address] | | + + + + + Care Team Providers + +------+ + | Care Excellence Coach Name | Role | Phone | + +------+ + | No, Unknownpcp | PCP | | + +------+ + Encounter Details +--------+ + + + + | Date | Type | Department | Care Team | Description | +--------+ + + + + | 08/04/ | Hospital | [facility] | Emanuel Huang | | | 2012 - | Encounter | MED CTR CANCER | MD Scar [address] | | | | | [place] [address] | [facility] | | | 08/24/ | | [place] | [place] [address] | | | 2012 | | [address] | [phone] | | | | | [phone] | | | +--------+ + + + [...] [address] | [place] | [phone] | | [facility] | | [address] | | | - LABORATORY | | | | + + + + + | [facility] | [address] | [place] | | | [facility] | | [address] | | | - LABORATORY | | [...] | 7 - 18 mg/dL | [facility] | | | | | | [facility] | | | | | | MEDICAL | | | | | | CENTER - | | | | | | LABORATORY | | + + + + + + | Creatinine | 0.76 | 0.60 - 1.30 | [facility] | | | | | mg/dL | [facility] | | | | | | MEDICAL | | | | | | CENTER - | | | | | | LABORATORY | | + + + + + + | Estimated | >60Comment: For | >60 mL/min/A | [facility] | | | GFR | -Americans, [...] + | [facility] | [address] | [place] | [phone] | | [facility] | | [address] | | | - LABORATORY | | | | + + + + + | [facility] | [address] | [place] | | | [facility] | | [address] | | | - LABORATORY | | | | + + + + + documented in this encounter Visit Diagnoses Not on filedocumented in this encounter"
--- OUTSIDE RECORDS SUMMARY | ~2019-02-20 | XMS | Encounter Summary ---
Demographics + + + | Address | [address] | | | [place] [address] | + + + | Home Phone | | + + + | Preferred Language | Unknown | + + + | Marital Status | | + + + | Taoism Affiliation | 1077 | + + + | Race | Unknown | + + + | Ethnic Group | Unknown | + + + Author + + + | Author | [facility] | | | and Valerianoana | + + + | Organization | [facility] | [...] [place], | | | | | [place] [address] | | + + + + + | Rahul Love . | ECON | [address] | | | | | [place] | | | | | [address] | | + + + + + Care Team Providers + +------+ + | Care Power Driven Brush Maker Name | Role | Phone | + [...] | | | | 01/24/ | | [place] | | | | 2007 | | [address] | | | | | | [phone] | | | +--------+ + + + [...]
--- OUTSIDE RECORDS SUMMARY | ~2019-02-20 | XMS | Encounter Summary ---
Demographics + + + | Address | [address] | | | [place] [address] | + + + | Home Phone [...] Author | [facility] | | | and Valerianoana | + + + | Organization | [facility] | | | [...] [place], | | | | | [place] [address] | | + + + + + | Rahul Love . | ECON | [address] | | | | | [place] | | | | | [address] | | + + + + + Care Team Providers + +------+ + | Care Family Advocate Name | Role | Phone | + +------+ + PCP | Unavailable | + +------+ + Encounter Details +--------+ + + + + | Date | Type | Department | Care Team | Description | +--------+ + + + + | 01/23/ | Hospital | [facility] | [place], | | | 2007 - | Encounter | MED CTR MED ONC | Scar Diego MD [address] | | | | | [address] [place] | [address] [place] | | | 01/30/ | | [place] [address] | [place] [address] | | | 2007 | | [phone] | [phone] | | | | | | | [...]
--- OUTSIDE RECORDS SUMMARY | ~2019-02-20 | XMS | Encounter Summary ---
Demographics + + + | Address | [address] | | | [place] [address] | + + + | Home Phone [...] Author | [facility] | | | and Valerianoana | + + + | Organization | [facility] | | | [...] [place], | | | | | [place] [address] | | + + + + + | Rahul Love . | ECON | [address] | | | | | [place] | | | | | [address] | | + + + + + Care Team Providers + +------+ + | Care Gang Sawyer Name | Role | Phone | + [...] + + | 10/09/ | Emergency | [facility] | Armin Berger | Gas (Primary Dx) | | 2013 | | MED CTR EMERGENCY | MD Chris [address] | | | | | [place] [address] | [facility] | | | | | [place], [place] | [place] [address] | | | | | [address] | [phone] | | | | | [phone] | | | +--------+ + + + [...] + | MISCELLANEOUS LAB | | | [phone] | + +---------+ + + | MISCELANIOUS LAB | | | [phone] | + +---------+ + + documented in this encounter Visit Diagnoses + + | Diagnosis | + + | Gas - Primary Flatulence, eructation, and gas pain | + + documented in this encounter
--- OUTSIDE RECORDS SUMMARY | ~2019-02-20 | XMS | Encounter Summary ---
Demographics + + + | Address | [address] | | | [place] [address] | + + + | Home Phone [...] | Author | [facility] | | | and Valerianoana | + + + | Organization | [facility] | | | and Valerianoana [...] [place], | | | | | [place] [address] | | + + + + + | Rahul Love . | ECON | [address] | | | | | [place] | | | | | [address] | | + + + + + Care Team Providers + +------+ + | Care Pastry Supervisor Name | Role | Phone | [...] | | | | 07/25/ | | [place] | | | | 2010 | | [address] | | | | | | [phone] | | | +--------+ + + + [...] an anal dilat or. She and her information tech tell me that it is becoming easier and easier for her to use it. PLAN: She will continue to see Dr. Azul. As noted, a full colonoscopy is planned in [facility]. She had proctoscopy about 6 months ago. An appointment was made for her to return her e after that colonoscopy for a routine follow up visit. DICTATED BY: Jorden Shahid M.D. Radiation Oncology JOB #: [id number] EXT JOB #:[id number] EDITED: 07/10/2010 08:37 cc: Mckayla Styles MD, [...] [address] | [place] | [phone] | | [facility] | | [address] | | | - LABORATORY | | | | + + + + + | [facility] | [address] | [place], [place] | | | [facility] | | [address] | | | - LABORATORY | | [...] + | [facility] | [address] | [place], [place] | [phone] | | [facility] | | [address] | | | - LABORATORY | | | | + + + + + | [facility] | [address] | [place], [place] | | | [facility] | | [address] | | | - LABORATORY | | [...] | + + + + + | [facility] | [address] | [place], [place] | [phone] | | [facility] | | [address] | | | - LABORATORY | | | | + + + + + | [facility] | [address] | [place], [place] | | | [facility] | | [address] | | | - LABORATORY | | | | + + + + + documented in this encounter Visit Diagnoses Not on filedocumented in this encounter"
--- OUTSIDE RECORDS SUMMARY | ~2019-02-20 | XMS | Encounter Summary ---
Demographics + + + | Address | [address] | | | [place] [address] | + + + | Home Phone | | + + + | Preferred Language | Unknown | + + + | Marital Status | | + + + | Temple Affiliation | 1077 | + + + | Race | Unknown | + + + | Ethnic Group | Unknown | + + + Author + + + | Author | [facility] | | | and Valerianoana | + + + | Organization | [facility] | | [...] [place], | | | | | [place] [address] | | + + + + + | Rahul Love . | ECON | [address] | | | | | [place] | | | | | [address] | | + + + + + Care Team Providers + +------+ + | Care Sketch Artist Name | Role | Phone | + [...] | | | | 10/25/ | | [place] | | | | 2009 | | [address] | | | | | | [phone] | | | +--------+ + + + [...]
--- OUTSIDE RECORDS SUMMARY | ~2019-02-20 | XMS | Encounter Summary ---
Demographics + + + | Address | [address] | | | [place] [address] | + + + | Home Phone [...] + | Author | [facility] | | | and Valer[place] | + + + | Organization | [facility] | | | and [...] [place], | | | | | [place] [address] | | + + + + + | Rahul Love . | ECON | [address] | | | | | [place], [place] | | | | | [address] | | + + + + + Care Team Providers + +------+ + | Care Client Support Coordinator Name | Role | Phone | [...] [address] | | | | | [phone] | [address] | | | | | | [place] [address] | | | | | | [phone] | | | | | | | [...]
--- OUTSIDE RECORDS SUMMARY | 2019-02-20 22:28 | XMS ---
PreManage Notification: TATYANA ROLAND Security Director Sales Support Events No recent Security Events currently on file CRITERIA MET - DURGAP CARE PROVIDERS RYANNE BECERRA [facility] 12/25/2017-Current PHONE: [phone] Bentley Guadalupe Benefits Consultant/Wood Chopper 06/23/2018-Current PHONE: [phone] Bentley Guadalupe Primary Care 06/23/2018-Current PHONE: [phone] Derek Zamorano MD PHONE: Unknown Roland has no Care Guidelines for this patient. Ruel VISIT COUNT (12 MO.) 4 MELISSA De La Rosa TOTAL 4 NOTE: Visits indicate total known visits. ED/UCC VISIT TRACKING (12 MO.) 02/20/2019 22:26 MELISSA Antonio [place] TYPE: Emergency COMPLAINT: - RECTAL BLEEDING 01/05/2019 15:53 MELISSA Antonio [place] TYPE: Emergency COMPLAINT: - RECTAL BLEEDING DIAGNOSES: - Personal history of nicotine dependence - Essential (primary) hypertension - Allergy status to analgesic agent status - Hemorrhage of anus and rectum - Allergy status to oth drug/meds/biol subst status - Other rodent exterminator (current) drug therapy 06/14/2018 09:12 MELISSA Antonio [place] TYPE: Emergency COMPLAINT: - ABD PAIN DIAGNOSES: - Alzheimer's disease, unspecified - Allergy status to analgesic agent status - Allergy status to oth drug/meds/biol subst status - Acquired absence of other specified parts of digestive tract - Personal history of nicotine dependence - Essential (primary) hypertension - Other rodent exterminator (current) drug therapy - Lower abdominal pain, unspecified 03/23/2018 14:45 MELISSA Antonio [place] TYPE: Emergency COMPLAINT: - RECTAL BLEEDING DIAGNOSES: - Acquired absence of other specified parts of digestive tract - Essential (primary) hypertension - Personal history of nicotine dependence - Allergy status to oth drug/meds/biol subst status - Hemorrhage of anus and rectum - Other retirement (current) drug therapy - Alzheimer's disease, unspecified - Abnormal uterine and vaginal bleeding, unspecified - Allergy status to analgesic agent status INPATIENT VISIT TRACKING (12 MO.) No inpatient visits to display in this time frame [email or web address]
[2019-02-20] MEDS ORDERED: DICYCLOMINE HCL10 MG PO (22:52)
[2019-02-20] MEDS ORDERED: NORCO 5-325 TA1 EACH PO (22:53)
--- NOTE | 2019-02-21 01:20 | NUR ---
PT ARRIVES TO CCU ROOM 130 ADMITTED FOR GI BLEED. ALERT AND ORIENTED, SLIDES SELF INTO BED FROM [facility]. DENIES PAIN/NAUSEA. UP TO BSC TO VOID 50ML CLEAR URINE, HAS SMALL AMOUNT BRIGHT RED BLOOD ON WIPES. DENIES DIZZINESS/LIGHTHEADEDNESS WHILE UP AND HR REMAINS STEADY. ASSESSMENT DONE. PT VERBALIZES UNDERSTANDING TO USE CALL LIGHT WITH ANY NEEDS, NOT TO GET UP ON HER OWN. CALL LIGHT IN HAND AND BED ALARM ON. IVF STARTED AND IV PROTONIX GIVEN.
--- NOTE | 2019-02-21 02:30 | NUR ---
UP TO BSC TO VOID, ATTEMPTED TO DO ORTHOSTATIC VITALS BUT PT KEPT MOVING ARMS A LOT AND COMPLAINING OF BP CUFF AND HAD SOME DIFFICULTY GETTING ACCURATE READINGS. WILL TRY AGAIN WHEN PT GETS UP AGAIN. HR REMAINS STEADY 95-100 WHILE UP, PT DENIES DIZZINESS/LIGHTHEADEDNESS.
--- NOTE | 2019-02-21 03:00 | NUR ---
UP TO BSC TO VOID 100ML AND HAS SMALL BROWN STOOL, SOME BLOOD NOTED ON WIPES BUT NOT IN COMMODE. BACK TO BED, CALL LIGHT IN HAND BED ALARM ON.
--- NOTE | 2019-02-21 03:30 | NUR ---
UP TO BSC TO VOID 100ML THEN BACK TO BED, NO SIGNS OF BLOOD NOTED. ORTHOS DONE AT T HIS TIME, PT TOLERATED WELL, NO DIZZINESS/LIGHTHEADEDNESS. CALL LIGHT IN HAND AND BED ALARM ON.
--- NOTE | 2019-02-21 04:18 | NUR ---
UP TO VOID, BACK TO BED, NO SIGNS OF BLEEDING, NO BLOOD ON WIPES THIS TIME. BACK TO BED WITH CALL LIGHT IN HAND AND SIDE RAILS UP.
--- NOTE | 2019-02-21 06:58 | NUR ---
PT HAS BEEN UP APPROX EVERY 30 MINUTES TO VOID AND HAVE OCCASIONAL SMALL BROWN STOOLS, SLEPT VERY LITTLE. NO SIGNS OF BLOOD IN STOOLS, OTHER THAN SOME BRIGHT RED DISCHARGE WHEN WIPING VAGINAL AREA. BLADDER SCAN WAS DONE IMMEDIATELY POST VOID THAT SHOWED 75ML. PT IS AWAKE IN BED, ANXIOUS TO DISCUSS PLAN OF CARE WITH
--- NOTE | 2019-02-21 10:44 | NUR ---
PATIENT WALKS IN CCU [place] UP AND DOWN TWICE. PT TOELRATED WELL. PT STATES, "I JUST CAN'T FIGURE OUT WHY I CAN'T HAVE ANYTHING TO DRINK." DISCUSSED WITH PATIENT AGAIN WHY SHE IS NPO AT THIS TIME, BUT PATIENT UNFORTUNATELY DOES NOT SEEM TO UNDERSTAND/REMEMBER OUR CONVERSATIONS WE HAD ABOUT 1/2 HOUR AGO. PT'S SON REMAINS IN ROOM AND HELPFUL TO PATIENT. CONTINUE TO MONITOR.
--- NOTE | 2019-02-21 11:18 | NUR ---
PT UP TO BED SIDE COMMODE TO VOID.
--- NOTE | 2019-02-21 13:16 | NUR ---
PT UP O BED SIDE COMMODE FO BM. NO BLOOD NOTED.
--- NOTE | 2019-02-21 13:58 | NUR ---
PATIENT UP TO BATHROOM AND TOLERATED AMBULATION WELL. HR STILL HAS SOME ECTOPY OF SHORT SVT RUNS WITH ACTIVITY, BUT OVERALL LESS NOW THAT DILT GTT INFUSING. DILT REMAINS AT 5 MG/HR. CONTINUE TO MONITOR.
--- NOTE | 2019-02-21 14:31 | NUR ---
PATIENT UP TO WALK IN [place] AROUND CCU [place] AND TOLERATED WELL. PT USING HER OWN WALKER. PT FIXATED ON WHEN DR. CHO WILL BE IN TO SEE HER. PATIENT STATES OVER AND OVER, "I DONT' KNOW DR. CHO, BUT I KNOW DR. CANSECO, AND HE DID MY OPERATION ABOUT 16 YEARS AGO." REASSURED PATIENT THAT SHE IS IN GOOD HANDS. PT BECOMES VERY ANXIOUS EASILY AND NEEDS RESASSURANCE OF PLAN OF CARE. PT THEN STATES, "WELL I JUST HOPE THEY FIGURE IT ALL OUT SO I CAN GET WELL AGAIN." REASSURED PATIENT THAT SHE IS DOING WELL, BUT HER RECTAL BLEEDING NEEDS TO BE FURTHER LOOKED INTO. PT NOW RESTING IN BED. WILL CONTINUE TO MONITOR.
--- NOTE | 2019-02-21 15:53 | NUR ---
Medications reconciled using pharmacy records and interview with caregiver
--- NOTE | 2019-02-21 16:36 | NUR ---
DR. CHO IN TO SEE PATIENT. PATIENT AGREEABLE TO HAVE A COLONOSCOPY TOMORROW. PT UP TO COMMODE AGAIN. HR REMAINS SLIGHTLY ELEVATED, UP TO 110 AT TIMES, BUT MOSTLY IN THE LOW 100s. CONTINUE TO MONITOR.
--- NOTE | 2019-02-21 17:10 | NUR ---
PATIENT STARTING BOWEL PREP MIRALAX/GATORADE MIX. PT STILL SOMEWHAT FORGETFUL OF RECENT CONVERSATIONS WITH MD. CALL LIGHT WITHIN REACH.
--- NOTE | 2019-02-21 18:20 | NUR ---
PATIENT ASKING FOR LIGHTS TO BE TURNED OFF. PT WANTING TO SLEEP TONIGHT, BUT ALSO DOING A BOWEL PREP.
--- NOTE | 2019-02-21 20:02 | NUR ---
UP TO BSC TO VOID THEN BACK TO BED. PT ENCOURAGED TO FINISH DRINKING BOWEL PREP SHE STILL HAS NOT FINISHED THE FIRST BOTTLE BUT SHE STATES "I CANT DRINK ANYMORE OF THAT STUFF, IM TIRED AND I ITS TIME FOR ME TO GO TO BED". EXPLAINED TO PT IMPORTANCE OF BOWEL PREP FOR SCOPE TOMORROW, BUT SHE GETS MORE ADAMANT THAT SHE IS NOT GOING TO DRINK ANY MORE. ASSESSMENT DONE. HR 100, RR 20. DENIES NAUSEA OR PAIN. IS REQUESTING EYE DROPS FOR DRY EYES. CALL LIGHT IN HAND, BED ALARM ON.
--- NOTE | 2019-02-21 20:48 | NUR ---
UP TO BSC FOR SMALL SOFT BROWN STOOL. PT CONT TO REFUSE TO DRINK BOWEL PREP "ITS MY BODY, IF I CANT DO IT I CANT DO IT". BACK TO BED, BED ALARM AND CALL LIGHT IN HAND.
--- NOTE | 2019-02-21 22:25 | NUR ---
UP TO BSC FOR VOID AND SMALL STOOL, BACK TO BED.
--- NOTE | 2019-02-22 02:44 | NUR ---
PT HAS SET OFF BED ALARM TWICE IN THE LAST HOUR, STATING SHE IS HEARING "SOMEONE FABIOLA HELP ME HELP ME". ASSISTED PT BACK TO BED WITH BED ALARM ON AND CALL LIGHT IN HAND.
--- NOTE | 2019-02-22 05:33 | NUR ---
LAB IN TO DRAW
--- NOTE | 2019-02-22 06:00 | NUR ---
PT HAS BEEN UP AND DOWN TO THE BSC TO FREQUENTLY THROUGH THE NIGHT AND NOT SLEPT.
--- NOTE | 2019-02-22 07:51 | NUR ---
PATIENT AGITATED THIS AM AND STATING THAT SHE DOESN'T KNOW IF SHE SHOULD DO THE COLONOSCOPY TODAY. PT CONCERNED AND STATES SHE THINKS SHE SHOULD TALK TO HER SON WYATT BEFORE DOING THIS COLONOSCOPY. DISCUSSED THIS WITH PATIENT AT LENGTH AND REMINDED PATIENT OF HER CONVERSATIONS WITH THE MD YESTERDAY REGARDING TRYING TO FIGURE OUT WHERE HER BLEEDING IS COMING FROM. NO FURTHER SIGN OF BLEEDING HAS BEEN IDENTIFIED. PATIENT UP TO VOID ABOUT EVERY 1/2 HOUR AT THIS TIME. IVF CONTINUE AT 75 ML/HR. PT STATES MANY TIMES, "I'M JUST TIRED OF ALL THIS, I'M JUST TIRED IN MY BODY." ASSESSMENT COMPLETE. CALL LIGHT WITHIN REACH. PT NOT WANTING TO WATCH TV, JUST WANTS A QUIET ROOM.
--- NOTE | 2019-02-22 09:45 | NUR ---
PATIENT WALKS IN CCU WITH THIS RN X 2 LAPS. PT TOLERATED WELL AND STATES SHE WALKS A LOT AT HOME. HR UP TO 120 WITH THIS AMBULATION HOWEVER. NOW RESTING IN BED, HR REMAINING 104-108. CONTINUE TO MONITOR.
--- NOTE | 2019-02-22 09:55 | NUR ---
US TECH CALLED IN.
--- NOTE | 2019-02-22 10:57 | NUR ---
PATIENT HAD TRANSVAGINAL ULTRASOUND AND DID NOT TOLERATE PORTIONS OF THIS. DR. TRIANA AWARE. DR. CHO IN TO SEE PATIENT AND INFORMED OF PT'S INABILITY TO FINISH BOWEL PREP. ORDER REC'D TO GIVE A TAP WATER ENEMA AND PATIENT WILL HAVE HER COLONOSCOPY AROUND 1200. PT UPSET AFTER THE ULTRASOUND BUT REASSURED PATIENT OF REASONS FOR TRYING TO DETERMINE WHERE HER BLEEDING WAS COMING FROM.
--- NOTE | 2019-02-22 11:23 | NUR ---
TAP WATER ENEMA GIVEN TO PATIENT. PATIENT TOLERATED WELL. PT WILL TRANSFER TO MEDICAL FLOOR AFTER HER PROCEDURE WITHOUT TELEMETRY. PT'S SON WYATT CALLED AND UPDATE GIVEN TO HIS . CONTINUE TO MONITOR.
--- NOTE | 2019-02-22 11:54 | NUR ---
PATIENT TAKEN TO GI SUITE FOR HER COLONOSCOPY. ALL BELONGINGS WILL BE TAKEN TO 120 WHERE PATIENT WILL GO AFTER PROCEDURE.
--- NOTE | 2019-02-22 12:19 | NUR ---
REPORT GIVEN TO JOSE CAZARES ON MED SURG. PT OFF TO COLONOSCOPY AND WILL TRANSFER TO 120 AFTER SCOPE.
--- NOTE | 2019-02-22 12:38 | NUR ---
02/22/19 1238 Nelly Staley PATIENT LIFTS HER EYELIDS TO LOUD VOICE. NO OTHER REACTION NOTED.
--- NOTE | 2019-02-22 13:15 | NUR ---
PT ARRIVED TO UNIT VIA STRETCHER FROM [place]. PT TRANSFERRED TO HOSPITAL BED WITH MINIMAL ASSIST, STEADY ON FEET. PT ALERT, ORIENTED TO SELF, LOCATION, AND SITUATION, REORIENTED TO DATE. PT DENIES PAIN OR OTHER CONCERNS AT THIS TIME. GIVEN CUP OF COFFEE PER REQUEST AND LUNCH ORDERED. PT SBA WITH WALKER TO AMB TO RESTROOM TO VOID. NOTED SCANT AMOUNT OF BRIGHT RED BLOOD IN ATTENDS AND ON TOILET PAPER UPON WIPING. AMB BACK TO BED. CALL LIGHT WITHIN REACH.
--- NOTE | 2019-02-22 14:18 | NUR ---
PT UP FREQUENTLY TO VOID. CURRENTLY SITTING UP IN BED DRINKING BROTH. SON AT BEDSIDE. CALL LIGHT WITHIN REACH.
--- NOTE | 2019-02-22 15:40 | NUR ---
PATIENT RESTING IN BED. FAMILY AND CAREGIVER IN ROOM. IV WRAPPED. PATIENT GOES TO USE THE BATHROOM. PATIENT TAKES A SHOWER. ONE PERSON ASSISTING. LINENS CHANGED. PATIENT BACKS TO BED. WARM BLANKET PROVIDED. CALL LIGHT WITHIN REACH. BED ALARM ON. NO OTHER NEEDS AT THIS TIME
--- NOTE | 2019-02-22 16:02 | NUR ---
CALL LIGHT ANSWERED. PATIENT RESTING IN BED. PATIENT GOES TO USE THE BATHROOM. PATIENT USES WALKER. CALL LIGHT WITHIN REACH. BED ALARM ON. NO OTHER NEEDS AT THIS TIME
--- NOTE | 2019-02-22 17:20 | NUR ---
PT SITTING UP IN BED EATING DINNER INDEPENDENTLY, ANKITA WELL. CALL LIGHT WITHIN REACH.
--- NOTE | 2019-02-22 17:49 | NUR ---
PATIENT RESTING IN BED. VITAL SIGNS AND I&O DONE. CALL LIGHT WITHIN REACH. BED ALARM ON. NO OTHER NEEDS AT THIS TIME
--- NOTE | 2019-02-22 19:00 | NUR ---
BEDSIDE REPORT RECEIVED FROM JOSE BERUMEN. pt RESTING IN BED WITH EYES CLOSED. BREATHING UNLABORED. BED ALARM ON. CALL LIGHT NEXT TO pt.
--- NOTE | 2019-02-22 20:19 | NUR ---
ROUNDED CHARGE. ASSISTED ALEJA GARCIA WITH PATIENT CARE. PATIENT DENIES ANY NEEDS. CALL LIGHT IN REACH.
--- NOTE | 2019-02-22 20:21 | NUR ---
ASSESSMENT COMPLETE. ENEMA ADMINISTERED ORDERED. pt TOLERATED WELL. BARRIER CREAM APPLIED TO BLANCHABLE REDDENED AREA ON BUTTOCKS. ATTENDS IN PLACE. BED ALARM ON. CALL LIGHT IN REACH. LIGHTS OFF IN ROOM. BED ALARM ON.
--- NOTE | 2019-02-22 20:45 | NUR ---
HELPED PT TO THE BATHROOM AND BACK TO BED WITH HER FWW. SCD'S PUT ON. BED ALARM SET. BEDSIDE TABLE AND CALL LIGHT IN REACH.
--- NOTE | 2019-02-22 21:48 | NUR ---
HELPED PT TO THE BATHROOM AND BACK TO BED WITH HER FWW. BED ALARM SET. BEDSIDE TABLE AND CALL LIGHT IN REACH
--- NOTE | 2019-02-22 23:45 | NUR ---
CHECKED ON pt. RESTING IN BED WITH EYES CLOSED. BREATHING UNLABORED. BED ALARM ON.
--- NOTE | 2019-02-23 00:58 | NUR ---
HELPED PT TO THE BATHROOM AND BACK TO BED WITH HER FWW. TWO WARM BLANKETS GIVEN. HEAT TURNED UP IN HER ROOM. BED ALARM SET. BEDSIDE TABLE AND CALL LIGHT IN REACH. PT NEEDS NOTHING MORE AT THIS TIME.
--- NOTE | 2019-02-23 03:14 | NUR ---
CHECKED ON pt. RESTING IN BED WITH EYES CLOSED, BREATHING UNLABORED. SCDS ON.
--- NOTE | 2019-02-23 03:59 | NUR ---
HELPED PT TO THE BATHROOM AND BACK TO BED WITH HER FWW. BEDSIDE TABLE AND CALL LIGHT IN REACH. PT NEEDS NOTHING MORE AT THIS TIME. BED ALARM SET. SCD'S PLUGGED BACK IN .
--- NOTE | 2019-02-23 04:28 | NUR ---
CALL LIGHT ANSWERED. DRINK OF WATER PROVIDED REQUESTED. ASSESSMENT AND VS COMPLETE, VSS. IV SL. CALL LIGHT IN REACH. SCDS ON.
--- NOTE | 2019-02-23 05:06 | NUR ---
SBA WITH FWW TO RESTROOM FOR QS VOIDS. CARAFATE ENEMA THIS SHIFT. pt RESTED WELL THIS SHIFT. SCDS IN PLACE. REORIENTATION PROVIDED TO DATE. BED ALARM ON.
--- NOTE | 2019-02-23 08:14 | NUR ---
PATIENT RESTING IN BED. PATIENT'S BREAKFAST ORDERED. PATIENT REFUSED TO TAKE A SHOWER TODAY BECAUSE SHE TOOK A SHOWER YESTERDAY. CALL LIGHT WITHIN REACH. BED ALARM ON. NO OTHER NEEDS AT THIS TIME
--- NOTE | 2019-02-23 09:49 | NUR ---
PT IS ALERT, IN GOOD SPIRITS, DENIES ANY DISCOMFORT THIS AM, ONE PERSON SBA WITH FWW INTO BATHROOM TO VOID, NO BLEEDING THIS MORNING, SCHEDULED CARAFATE OH GIVEN GENTLY, TOLERATED WELL. ASKED TO SIT UP IN RECLINER AND WORK ON CROSSWORD PUZZLE. USING CALL LIGHT APPROPRIATELY.
--- NOTE | 2019-02-23 09:53 | NUR ---
PATIENT SITTING UP IN CHAIR. VITAL SIGNS AND I&O DONE. CALL LIGHT WITHIN REACH. NO OTHER NEEDS AT THIS TIME
--- NOTE | 2019-02-23 10:00 | NUR ---
AMBULATED LOOP AROUND NURSES STATION USING FWW AND SBA ONLY, TOLERATED WELL, ENJOYED WALK, DR TRIANA HERE TO SEE PT.
--- NOTE | 2019-02-23 11:30 | NUR ---
SON AND CAREGIVER HAVE ARRIVE TO TRANSPORT PT HOME, REVIEWED DISCHARGE INSTRUCTION AND FOLLOW UP APPOINTMENT, BOTH DENY ANY QUESTIONS AND STATE THEY HAVE TO LEAVE NOW, UNABLE TO WAIT TO SPEAK TO PHARMACY. STATES THEY HAVE NO QUESTIONS, WC FOR PT TO FRONT AND ASSISTED INTO CAREGIVERS CAR.
--- NOTE | 2019-02-23 16:30 | CONS ---
[facility] [address], [place] [address] Signed DATE OF CONSULTATION: 02/21/2019 REQUESTING PHYSICIAN: Eryn Pond MD. PROBLEM: Possible hematochezia, known history of anal carcinoma, status post excision and radiation therapy. HISTORY OF PRESENT ILLNESS: This very elderly 88-year-old white woman is admitted to the hospital today by Dr. Pond after her presentation to the emergency room for rectal bleeding. Rectal bleeding is stated advisably as there has been some question that maybe her bleeding was vaginal bleeding. The bleeding was characterized as bright red bleeding and began only 6 hours prior to her presentation at approximately midnight. She has had consideration of at least 6 episodes of bleeding since the early evening. She had no associated abdominal pain, nausea, vomiting, or hematemesis. Evaluation in the emergency room was by Dr. Muniz and admission by Dr. Pond to the intensive care unit for further observation was undertaken. The patient has had a history of anal carcinoma in 2007, treated by excisional biopsy and subsequent radiation therapy. The patient is noted to have cognitive impairments and probable Alzheimer disease. She does recount some historical issues relatively well including the family history and note of other family members with dementia. Other problems include hypertension, gastroesophageal reflux, and hyperlipidemia. The patient does not smoke. She is estranged from her former , who now lives in [place] she says. The patient lives at [facility]. She has a son, who watches after her. MEDICATIONS: At admission include misoprostol (Cytotec), sertraline, venlafaxine, pravastatin, dicyclomine, [place], Zantac, multivitamins, Tylenol, and glucosamine chondroitin. REVIEW OF SYSTEMS: The patient denies any current anal pain. She has had perineal bleeding, but uncertain if this is actually rectal as there are some who have described her bleeding as vaginal. PHYSICAL EXAMINATION: GENERAL: Pleasant white woman who states from the outset she does not want any more surgery. She is 88 years old and has lived long enough. Her trachea is midline. Chest shows normal respiratory excursion. There is no tachypnea. Mucous membranes appear moist. She has a faint bruise in the left orbital area, which she attributes to a fall. Chest exam additionally shows some old bruising. Electronically Signed By: TY CHO MD 02/23/19 1630 PATIENT NAME: TATYANA ROLAND CONSULTATION DATE OF : 31 REPORT #: [id number] PHYSICIAN: TY CHO MD PCP: RYANNE BECERRA MD REPORT IS CONFIDENTIAL AND NOT TO BE RELEASED WITHOUT AUTHORIZATION [facility] [address], [place] [address] Signed ABDOMEN: Scaphoid and flat, nontender. : Direct exam to the anal area shows a concentric ring with low-grade anal stricture. No profound anal stricture. She has erythematous change of the skin of the perineum. I did not do a formal pelvic exam at this time. EXTREMITIES: Showed no clubbing, cyanosis, or edema. LABORATORY STUDIES: Showed normal electrolytes. Creatinine is 0.81. Liver enzymes normal. Coag studies show an INR of 1.1. Hematocrit was 37.6, white count 7.8, platelets 164,000. ASSESSMENT: It is presumed the patient has had rectal bleeding, however, it is not entirely certain as there have been some reports by other observers that she may have had vaginal bleeding. A pelvic CT of June 14, 2018, was rather unremarkable. Uterus was considered present and small. 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 Examination shows anal stenosis, but no clinical signs or symptoms of an acute anal fissure particularly and no tenderness necessarily and certainly no evidence of perianal or intra-anal mass to suggest recurrent anal carcinoma. We are mindful of her resistance to any sort of operative intervention, but she does agree to consideration for colonoscopy to better characterize her problem from a colorectal standpoint. A bowel prep that is MiraLAX based and clear liquid based would be reasonable to allow for colonoscopy. Concurrent vaginoscopy may be undertaken while under sedation to assess for any evidence of vaginal or cervical neoplasia that may account for perineal bleeding not otherwise recognized at this point. The risks of bleeding, infection, and perforation are well acknowledged by care team. The patient's possible degree of dementia may compromise her entire understanding of that aspect, though it can be reviewed with her son. Would anticipate endoscopic evaluations tomorrow around mid day, certainly sooner if she should "cut loose" with bleeding or have other reasons for a more expedient evaluation. Ty Cho MD Electronically Signed By: TY CHO MD 02/23/19 1630 PATIENT NAME: TATYANA ROLAND CONSULTATION DATE OF : 31 REPORT #: [id number] PHYSICIAN: TY CHO MD PCP: RYANNE EBCERRA MD REPORT IS CONFIDENTIAL AND NOT TO BE RELEASED WITHOUT AUTHORIZATION [place] [id number] [place] [address] Signed /MODL /[id number] cc: MD Eryn Kitchen MD Copies: RYANNE BECERRA MD, LOHITH VEERAPPA MD ~ Electronically Signed By: TY CHO MD 02/23/19 1630 PATIENT NAME: TATYANA ROLAND CONSULTATION DATE OF : 31 REPORT #: [id number] PHYSICIAN: TY CHO MD PCP: RYANNE BECERRA MD REPORT IS CONFIDENTIAL AND NOT TO BE RELEASED WITHOUT AUTHORIZATION
--- NOTE | 2019-02-23 16:30 | OR ---
[facility] [address], [place] [address] Signed DATE OF OPERATION: 02/22/2019 SURGEON: Ty Cho MD PREOPERATIVE DIAGNOSIS: Presumed rectal bleeding. POSTOPERATIVE DIAGNOSES: 1. Atrophic vaginitis, normal appearing cervix. No evidence of fungating neoplasm of introitus. 2. Proctitis. PROCEDURES PERFORMED: 1. Vaginoscopy without biopsy. 2. Total colonoscopy with intubation of ileum and biopsies. ANESTHESIA: Intravenous sedation; propofol infusion; Ty Yañez CRNA. INDICATION: This 88-year-old white woman is admitted to the hospital by Dr. Triana with bright red hematochezia at least six episodes yesterday. She has had rectal bleeding in the past. She has a distant history of anal carcinoma, for which she underwent excision as well as radiation therapy. This was in 2007. She has had rectal bleeding in the past and has undergone colonoscopy showing radiation proctitis. She has significant dementia and all of the points of her history are not entirely well known. There is some question whether she actually has introital (vaginal) bleeding though the patient is unable to provide reliable information in that regard. The patient did undergo attempted transvaginal ultrasound this morning, which she tolerated poorly. Rectal examination shows some degree of anal stenosis, but no sign of actual fissure and no blood on examination yesterday. She is admitted at this time to undergo vaginoscopy under sedation as well as total colonoscopy to better characterize the problem. She understands as does her son. The risks of bleeding, infection, perforation, and failure to provide adequate diagnosis and wished to proceed. Notably, the patient did not complete her bowel prep as she was resistant to doing so, though we will proceed any way as she may have had an adequate prep despite not completing it fully. Electronically Signed By: TY CHO MD 02/23/19 1630 PATIENT NAME: TATYANA ROLAND OPERATIVE REPORT DATE OF : 32 REPORT #: [id number] PHYSICIAN: TY CHO MD PCP: RYANNE BECERRA MD REPORT IS CONFIDENTIAL AND NOT TO BE RELEASED WITHOUT AUTHORIZATION [facility] [address], [place] [address] Signed FINDINGS: Pelvic examination shows general erythema of the perineum. There is no sign of excoriating lesion. Digital vaginal examination shows a foreshortened introitus. There may be as well a rectocele. Endoscopic evaluation of the vaginal canal did demonstrate what appeared to be the cervical os, but there was no sign of fungating neoplasm or other issue. There is atrophic vaginitis and small amount of dry blood due to friability, but no sign of neoplasm proper. A colonoscopy was performed showing obvious proctitis extending to the rectosigmoid. Remaining colon appeared reasonably normal. Intubation of the ileum was accomplished. The ileocecal junction was suggestive of prior partial colectomy, though that is not known to me and probably not known to the patient either. Alternatively, a simply deformed ileocecal valve may be present. There appeared to be no blood within the small bowel. There was some friability in the region of the ileocecal (or ileocolic) connection, but no sign of active bleeding and no neoplasm proper. The dominant finding possibly accounted for hematochezia would likely be radiation proctitis. DESCRIPTION OF PROCEDURE: The patient was brought to the endoscopy suite and placed in lateral decubitus position. She was given intravenous sedation by the drupal web developer with propofol infusional technique. Examination of the perineum showed to be general erythema of the skin, but no excoriation or bleeding lesions. Digital examination of the vaginal orifice showed a foreshortened vaginal cuff area. Some synechiae were noted. An Olympus video colonoscope was passed into the vaginal area intentionally showing atrophic vaginitis. With various manipulations, it appeared the cervix could be identified with a closed os and no sign of fungating lesion or other abnormality. The scope was variously used to examine the vaginal canal, though it was rather foreshortened. Photographs were taken. No biopsies were obtained. Digital rectal examination showed a concentric ring around the anal canal consistent with low-grade anal stricture. The Olympus video colonoscope was passed in the rectum and immediately noted was radiation proctitis in appearance. The scope was manipulated throughout the colon. She had a surprisingly good bowel prep impact. The scope was advanced as far as possible ultimately identifying what appeared to be a deformed ileocecal valve or perhaps a surgical ileocecal valve implying partial right colectomy, though this is not entirely certain. With various manipulations, the scope was passed into the ileum, which appeared normal with no sign of ulceration, stricture, or neoplasm. Biopsies were obtained of the ileum. The scope was then withdrawn to the cecal area or leonor cecum. There appeared to be no particular neoplastic change nor sign of inflammation and the biopsy was obtained anyway. The scope was then carefully Electronically Signed By: TY CHO MD 02/23/19 1630 PATIENT NAME: TATYANA ROLAND OPERATIVE REPORT DATE OF : 31 REPORT #: [id number] PHYSICIAN: TY CHO MD PCP: RYANNE BECERRA MD REPORT IS CONFIDENTIAL AND NOT TO BE RELEASED WITHOUT AUTHORIZATION [address] [place] [address], [place] [address] Signed withdrawn. Remaining colon appeared normal until the rectosigmoid where obvious proctitis was noted. Biopsies were obtained there multiple and including those in the lowest part. The scope was then removed and the patient was taken to recovery room in good condition. CONCLUDING DIAGNOSES: 1. Bleeding most likely related to radiation proctitis. 2. Synechiae and atrophic vaginitis noted on clinical examination. 3. No sign of neoplasm of vaginal canal or cervix. PLAN: We will initiate Carafate related enemas at least b.i.d. There is no sign of active bleeding to strongly indicate need for formaldehyde ablation of radiation ulcerations. MD LORA Santiago/MODL /[id number] cc: MD Ryanne Dunn MD Copies: FRAKNI TRIANA MD, RUSSELL BARR MD ~ Electronically Signed By: TY CHO MD 02/23/19 1630 PATIENT NAME: TATYANA ROLAND OPERATIVE REPORT DATE OF : 31 REPORT #: [id number] PHYSICIAN: TY CHO MD PCP: RYANNE BECERRA MD REPORT IS CONFIDENTIAL AND NOT TO BE RELEASED WITHOUT AUTHORIZATION
== END 2019-02-23 11:38 | disposition home or self-care (01) | DRG 395 ==
LOC: ED 22:25 → CCU 02-21 00:42 → MS 02-21 00:42
PROVIDERS: Surgery; ADMIT Internal Medicine
PROC: 0DBN8ZX Excision of Sigmoid Colon, Via Natural or Artificial Opening Endoscopic, Diagnostic (ICD-10-PCS; 2019-02-22)
PROC: 0UJH8ZZ Inspection of Vagina and Cul-de-sac, Via Natural or Artificial Opening Endoscopic (ICD-10-PCS; principal; 2019-02-22 12:00)
DX: K62.7 Radiation proctitis (principal); N95.2 Postmenopausal atrophic vaginitis; N85.6 Intrauterine synechiae; I10 Essential (primary) hypertension; K21.9 Gastro-esophageal reflux disease without esophagitis; E78.5 Hyperlipidemia, unspecified; F32.9 Major depressive disorder, single episode, unspecified; F03.90 Unspecified dementia, unspecified severity, without behavioral disturbance, psychotic disturbance, mood disturbance, and anxiety; Y84.2 Radiological procedure and radiotherapy as the cause of abnormal reaction of the patient, or of later complication, without mention of misadventure at the time of the procedure; Z85.048 Personal history of other malignant neoplasm of rectum, rectosigmoid junction, and anus; Z88.8 Allergy status to other drugs, medicaments and biological substances; Z79.899 Other long term (current) drug therapy; Z79.891 Long term (current) use of opiate analgesic
CPT/HCPCS: 36415; 51798; 76830; 76856; 80048; 80053; 83735; 85025; 85610; 85730; 86850; 86900; 86901; 86920; 99284; C9113; J2704; J7121

== ENCOUNTER 2019-03-11 16:08 | Emergency (ER) | payer MEDICARE, OTHER ==
[~2019-03-11] VITALS: Ht 157.5 cm; Wt 58.9 kg
--- OUTSIDE RECORDS SUMMARY | ~2019-03-11 | XMS | Encounter Summary ---
Demographics + + + | Address | [address] | | | [place] [address] | + + + | Home Phone | | + + + | Preferred Language | Unknown | + + + | Marital Status | | + + + | Yarsanism Affiliation | 1077 | + + + | Race | Unknown | + + + | Ethnic Group | Unknown | + + + Author + + + | Author | [facility] | | | and [place] | + + + | Organization | [facility] | | | and [place] | + + + | Address | Unknown | + + + | Phone | Unavailable | + + + Support + + + + + | Name | Relationship | Address | Phone | + + + + + | Scar Deleon | ECON | [address] | | | | | [place] | | | | | [address] | | + + + + + Care Team Providers + +------+ + | Care Ironing Machine Operator Name | Role | Phone | + +------+ + PCP | Unavailable | + +------+ + Encounter Details +--------+ + + + + | Date | Type | Department | Care Team | Description | +--------+ + + + + | 06/25/ | Hospital | [facility] | | | | 2008 - | Encounter | MED CTR CANCER | | | | | | CENTER [address] | | | | 07/25/ | | [place] | | | | 2008 | | [address] | | | | | | [phone] | | | +--------+ + + + [...] as of this encounter Plan of Treatment +--------+---------+ + + + | Date | Type | Specialty | Care Team | Description | +--------+---------+ + + + | 03/30/ | Office | Otolaryngology | Jonel Martin MD | | | 2020 | Visit | | [address] | | | | | | [address] [place], | | | | | | [place] [address] | | | | | | [phone] | | | | | | | | +--------+---------+ + + + documented as of this encounter Visit Diagnoses Not on filedocumented in this encounter"
--- OUTSIDE RECORDS SUMMARY | ~2019-03-11 | XMS | Encounter Summary ---
Demographics + + + | Address | [address] | | | [place] [address] | + + + | Home Phone | | + + + | Preferred Language | Unknown | + + + | Marital Status | | + + + | Taoism Affiliation | 1077 | + + + | Race | Unknown | + + + | Ethnic Group | Unknown | + + + Author + + + | Author | [facility] | | | and [place] | + + + | Organization | [facility] | | | and [place] | + + + | Address | Unknown | + + + | Phone | Unavailable | + + + Support + + + + + | Name | Relationship | Address | Phone | + + + + + | Scar Deleon | ECON | [address] | | | | | [place] | | | | | [address] | | + + + + + Care Team Providers + +------+ + | Care Refuge Worker Name | Role | Phone | + +------+ + PCP | Unavailable | + +------+ + Encounter Details +--------+ + + + + | Date | Type | Department | Care Team | Description | +--------+ + + + + | 10/07/ | Hospital | [facility] | | | | 2009 - | Encounter | MED CTR CANCER | | | | | | CENTER [address] | | | | 10/25/ | | [place] | | | | 2009 | | [address] | | | | | | [phone] | | | +--------+ + + + [...] [place], | | | | | | [place] [address] | | | | | | [phone] | | | | | | | | +--------+---------+ + + + documented as of this encounter Visit Diagnoses Not on filedocumented in this encounter"
--- OUTSIDE RECORDS SUMMARY | ~2019-03-11 | XMS | Encounter Summary ---
Demographics + + + | Address | [address] | | | [place] [address] | + + + | Home Phone | | + + + | Preferred Language | Unknown | + + + | Marital Status | | + + + | Gnosticist Affiliation | 1077 | + + + | Race | Unknown | + + + | Ethnic Group | Unknown | + + + Author + + + | Author | [facility] | | | and [place] | + + + | Organization | [facility] | | | [...] [place] | | | | | [address] | | + + + + + Care Team Providers + +------+ + | Care Welfare Aide Name | Role | Phone | + +------+ + PCP | Unavailable | + +------+ + Encounter Details +--------+ + + + + | Date | Type | Department | Care Team | Description | +--------+ + + + + | 12/28/ | Hospital | [facility] | [place], | | | 2008 - | Encounter | MED CTR GENERIC OP | Scar Diego MD [address] | | | | | [address] | [address] | | | 01/20/ | | [place], | [place] [address] | | | 2007 | | [place] [address] | [phone] | | | | | [phone] | | | +--------+ + + + [...] 2020 | Visit | | [address] [facility] | | | | | | [address] [place], | | | | | | [place] [address] | | | | | | [phone] | | | | | | | | +--------+---------+ + + + documented as of this encounter Visit Diagnoses Not on filedocumented in this encounter"
--- OUTSIDE RECORDS SUMMARY | ~2019-03-11 | XMS | Encounter Summary ---
Demographics + + + | Address | [address] | | | [place] [address] | + + + | Home Phone | | + + + | Preferred Language | Unknown | + + + | Marital Status | | + + + | Caodaism Affiliation | 1077 | + + + | Race | Unknown | + + + | Ethnic Group | Unknown | + + + Author + + + | Author | [facility] | | | and [place] | + + + | Organization | [facility] | | | [...] [place] | | | | | [address] | | + + + + + Care Team Providers + +------+ + | Care Digital Sales Assistant Name | Role | Phone | + +------+ + PCP | Unavailable | + +------+ + Encounter Details +--------+ + + + + | Date | Type | Department | Care Team | Description | +--------+ + + + + | 01/01/ | Hospital | [facility] | | | | 2007 - | Encounter | MED CTR CANCER | | | | | | CENTER [address] | | | | 01/24/ | | [place] | | | | 2007 | | [address] | | | | | | [phone] | | | +--------+ + + + [...] [place], | | | | | | [place] [address] | | | | | | [phone] | | | | | | | | +--------+---------+ + + + documented as of this encounter Visit Diagnoses Not on filedocumented in this encounter"
--- OUTSIDE RECORDS SUMMARY | ~2019-03-11 | XMS | Encounter Summary ---
Demographics + + + | Address | [address] | | | [place] [address] | + + + | Home Phone | | + + + | Preferred Language | Unknown | + + + | Marital Status | | + + + | Samaritan Affiliation | 1077 | + + + | Race | Unknown | + + + | Ethnic Group | Unknown | + + + Author + + + | Author | [facility] | | | and [place] | + + + | Organization | [facility] | | | and [...] [place] | | | | | [address] | | + + + + + Care Team Providers + +------+ + | Care Ordnance Keeper Name | Role | Phone | + +------+ + PCP | Unavailable | + +------+ + Encounter Details +--------+ + + + + | Date | Type | Department | Care Team | Description | +--------+ + + + + | 08/14/ | Hospital | [facility] | Emanuel Huang | | | 2012 - | Encounter | MED CTR CANCER | MD Scar [address] | | | | | [place] [address] | [address] [place] | | | 08/24/ | | [place], [place] | [place] [address] | | | 2011 | | [address] | [phone] | | | | | [phone] | | | +--------+ + + + [...] in 01/2008. The patient does come in tod ay for regular followup. Marimaa states that she has done well since [...] Baldomero York MD Radiation Oncology JOB #: [id number] [id number] JOB #:[id number] cc: MD Emanuel Sagastume MD Dr. Andrew Bower Underwood <Electronically Signed by Baldomero York MD> 09/02/11 1013 documented in this encounter Plan of Treatment +--------+---------+ + + + | Date | Type | Specialty | Care Team | Description | +--------+---------+ + + + | 03/30/ | Office | Otolaryngology | Jonel Martin MD | | | 2020 | Visit | | [address] [facility] | | | | | | [address] [place], | | | | | | [place] [address] | | | | | | [phone] | | | | | | | | +--------+---------+ + + + documented as of this encounter Procedures + +--------+ [...] | | | es | | | [facility] | | | | | | MEDICAL | | | | | | CENTER - | | | | | | LABORATORY | | + + + + + + | Cholesterol | 135 (L) | 150 - 200 mg/dL | [facility] | | | | | | [facility] | | | | | | [facility]ICAL | | | | | | CENTER - | | | | | | LABORATORY | | + + + + + + | HDL | 43 | 29 - 89 mg/dL | [facility] | | | | | | [facility] | | | | | | MEDICAL | | | | | | CENTER - | | | | | | LABORATORY | | + + + + + + | LDL, | 62 | <130 mg/dL | [facility] | | | Calculated | | | [facility] | | [...] + | [facility] | [address] | [place], [place] | [phone] | | [facility] | | [address] | | | - LABORATORY | | | | + + + + + | [facility] | [address] | [place], [place] | | | [facility] | | [address] | | | - LABORATORY | | | | + + + + + Comprehensive Metabolic Panel (08/15/2011 10:45 AM PDT) + + + + + + | Component | Value | Ref Range | Performed | Pathologist | | | | | At | Signature | + + + + + + | Glucose | 94 | 70 - 109 mg/dL | [facility] | | [facility] | [facility] | | | | | | MEDICAL | | | | | | CENTER - | | | | | | LABORATORY | | + + + + + + | Calcium | 8.8 | 8.3 - 10.5 | [facility] | | | | | mg/dL | [facility] | | | | | | [...] | | Protein | | | [facility] | | | | | | MEDICAL | | | | | | CENTER - | | | | | | LABORATORY | | + + + + + + | Albumin | 3.5 | 3.2 - 5.0 gm/dL | [facility] | | | | | | [facility] | | | | | | MEDICAL | | | | | | CENTER - | | | | | | LABORATORY | | + + + + + + | BUN | 11 | 7 - 18 mg/dL | [facility] | | | | | | [facility] | | | | | | MEDICAL | | | | | | CENTER - | | | | | | LABORATORY | | + + + + + + | Creatinine | 0.83 | 0.60 - 1.30 | [facility] | | | | | mg/dL | [facility] | | | | | | MEDICAL | | | | | | CENTER - | | | | | | LABORATORY | | + + + + + + | Estimated | >60Comment: For | >60 mL/min/A | [facility] | | | GFR | -Americans, | | [facility] | | | | please multiply the [...] [facility] | | | | | | . [facility] | | | | | | [...] + | [facility] | [address] | [place], [place] | [phone] | | [facility] | | [address] | | | - LABORATORY | | | | + + + + + | [facility] | [address] | [place], [place] | | | [facility] | | [address] | | | - LABORATORY | | | | + + + + + documented in this encounter Visit Diagnoses Not on filedocumented in this encounter"
--- OUTSIDE RECORDS SUMMARY | ~2019-03-11 | XMS | Encounter Summary ---
Demographics + + + | Address | [address] | | | [place] [address] | + + + | Home Phone | | + + + | Preferred Language | Unknown | + + + | Marital Status | | + + + | Alevism Affiliation | 1077 | + + + | Race | Unknown | + + + | Ethnic Group | Unknown | + + + Author + + + | Author | [facility] | | | and [place] | + + + | Organization | [facility] | | | [...] [place] | | | | | [address] | | + + + + + Care Team Providers + +------+ + | Care Media Operator Name | Role | Phone | + +------+ + PCP | Unavailable | + +------+ + Encounter Details +--------+ + + + + | Date | Type | Department | Care Team | Description | +--------+ + + + + | 06/17/ | Hospital | [facility] | | | | 2008 - | Encounter | MED CTR CANCER | | | | | | CENTER [address] | | | | 06/24/ | | [place] | | | | 2008 | | [address] | | | | | | [phone] | | | +--------+ + + + [...] | | | | | | [place] [address] | | | | | | [phone] | | | | | | | | +--------+---------+ + + + documented as of this encounter Visit Diagnoses Not on filedocumented in this encounter"
--- OUTSIDE RECORDS SUMMARY | ~2019-03-11 | XMS | Encounter Summary ---
Demographics + + + | Address | [address] | | | [place] [address] | + + + | Home Phone | | + + + | Preferred Language | Unknown | + + + | Marital Status | | + + + | Amish Affiliation | 1077 | + + + [...] | Scar Deleon | ECON | [address] | | | | | [place] | | | | | [address] | | + + + + + Care Team Providers + +------+ + | Care Wire Drawing Machine Tender Name | Role | Phone | + +------+ + | No, Unknownpcp | PCP | | + +------+ + Encounter Details +--------+ + + + + | Date | Type | Department | Care Team | Description | +--------+ + + + + | 04/22/ | Abstract | [place] [facility] | [facility] | | | 2013 | | Conversion Location | MD Scar [address] | | | | | [phone] | [address] | | | | | | [place] [address] | | | | | | [phone] | | | | | | | | +--------+ + + + [...] 2020 | Visit | | [address] [facility] | | | | | | [address] [place], | | | | | | [place] [address] | | | | | | [phone] | | | | | | | | +--------+---------+ + + + documented as of this encounter Visit Diagnoses Not on filedocumented in this encounter"
--- OUTSIDE RECORDS SUMMARY | ~2019-03-11 | XMS | Encounter Summary ---
Demographics + + + | Address | [address] | | | [place] [address] | + + + | Home Phone | | + + + | Preferred Language | Unknown | + + + | Marital Status | | + + + | Hinduism Affiliation | 1077 | + + + | Race | Unknown | + + + | Ethnic Group | Unknown | + + + Author + + + | Author | [facility] | | | and [place] | + + + | Organization | [facility] | | | and [...] [place] | | | | | [address] | | + + + + + Care Team Providers + +------+ + | Care Floor Cashier Name | Role | Phone | + +------+ + PCP | Unavailable | + +------+ + Encounter Details +--------+ + + + + | Date | Type | Department | Care Team | Description | +--------+ + + + + | 08/14/ | Hospital | [facility] | Emanuel Huang | | | 2012 - | Encounter | MED CTR CANCER | MD Scar [address] | | | | | [place] [address] | [address] | | | 08/24/ | | [place], [place] | [place] [address] | | | 2011 | | [address] | [phone] | | | | | [phone] | | | +--------+ + + + [...] come in tod ay for regular followup. Mariama states that she [...] Baldomero York MD Radiation Oncology JOB #: [id number] EXT JOB #:[id number] cc: MD Emanuel Sagastume MD Dr. Andrew Bower [place] <Electronically Signed by Baldomero York MD> 09/02/11 1013 documented in this encounter Plan of Treatment +--------+---------+ + + + | Date | Type | Specialty | Care Team | Description | +--------+---------+ + + + | 03/30/ | Office | Otolaryngology | Jonel Martin MD | | | 2020 | Visit | | [address] [facility] | | | | | | [address] [place], | | | | | | [place] [address] | | | | | | [phone] | | | | | | | [...] + | [facility] | [address] | [place], [place] | [phone] | | [facility] | | [address] | | | - LABORATORY | | | | + + + + + | [facility] | [address] | [place], [place] | | | [facility] | | [address] | | | - LABORATORY | | [...] + | [facility] | [address] | [place], [place] | [phone] | | [facility] | | [address] | | | - LABORATORY | | | | + + + + + | [facility] | [address] | [place], [place] | | | [facility] | | [address] | | | - LABORATORY | | | | + + + + + documented in this encounter Visit Diagnoses Not on filedocumented in this encounter"
--- OUTSIDE RECORDS SUMMARY | ~2019-03-11 | XMS | Encounter Summary ---
Demographics + + + | Address | [address] | | | [place] [address] | + + + | Home Phone | | + + + | Preferred Language | Unknown | + + + | Marital Status | | + + + | Yarsanism Affiliation | 1077 | + + + | Race | Unknown | + + + | Ethnic Group | Unknown | + + + Author + + + | Author | [facility] | | | and [place] | + + + | Organization | [facility] | | | [...] [place] | | | | | [address] | | + + + + + Care Team Providers + +------+ + | Care Bakery Supervisor Name | Role | Phone | + +------+ + PCP | Unavailable | + +------+ + Encounter Details +--------+ + + + + | Date | Type | Department | Care Team | Description | +--------+ + + + + | 12/03/ | Hospital | [facility] | | | | 2007 - | Encounter | MED CTR CANCER | | | | | | CENTER [address] | | | | 12/25/ | | [place] | | | | 2007 | | [address] | | | | | | [phone] | | | +--------+ + + + [...] [place], | | | | | | [place] [address] | | | | | | [phone] | | | | | | | | +--------+---------+ + + + documented as of this encounter Visit Diagnoses Not on filedocumented in this encounter"
--- OUTSIDE RECORDS SUMMARY | ~2019-03-11 | XMS | Encounter Summary ---
Demographics + + + | Address | [address] | | | [place] [address] | + + + | Home Phone | | + + + | Preferred Language | Unknown | + + + | Marital Status | | + + + | Christianity Affiliation | 1077 | + + + [...] | [place] | | | | | [address] | | + + + + + Care Team Providers + +------+ + | Care Stock Replenisher Name | Role | Phone | + [...] [address] | | | | | [phone] | [address] | | | | | | [place] [address] | | | | | | [phone] | | | | | | | [...] 2020 | Visit | | [address] [facility] | | | | | | [address] [place], | | | | | | [place] [address] | | | | | | [phone] | | | | | | | | +--------+---------+ + + + documented as of this encounter Visit Diagnoses Not on filedocumented in this encounter"
--- OUTSIDE RECORDS SUMMARY | ~2019-03-11 | XMS | Encounter Summary ---
Demographics + + + | Address | [address] | | | [place] [address] | + + + | Home Phone | | + + + | Preferred Language | Unknown | + + + | Marital Status | | + + + | Spiritism Affiliation | 1077 | + + + | Race | Unknown | + + + | Ethnic Group | Unknown | + + + Author + + + | Author | [facility] | | | and [place] | + + + | Organization | [facility] | | | [...] [place] | | | | | [address] | | + + + + + Care Team Providers + +------+ + | Care Casino Beverage Server Name | Role | Phone | + +------+ + | John Del Cid MD | PCP | | + +------+ + Reason for Visit + + + | Reason | Comments | + + + | Abdominal Mass | left | + + + Encounter Details +--------+ + + + + | Date | Type | Department | Care Team | Description | +--------+ + + + + | 10/09/ | Emergency | [facility] | Armin Berger | Gas (Primary Dx) | | 2013 | | MED CTR EMERGENCY | MD Chris [address] | | | | | CENTER [address] | [address] [facility] | | | | | [place], [place] | [place] [address] | | | | | [address] | [phone] | | | | | [phone] | | | +--------+ + + + [...] + + documented as of this encounter Last Filed Vital Signs + + + + + | Vital Sign | Reading | Time Taken | Comments | + + + + + | Blood Pressure | 138/90 | 10/09/2013 7:25 PM | | | | | PDT | | + + + + + | Pulse | 82 | 10/09/2013 7:25 PM | | | | | PDT | | + + + + + | Temperature | 37.5 C (99.5 F) | 10/09/2013 7:25 PM | | | | | PDT | | + + + + + | Respiratory Rate | 18 | 10/09/2013 7:25 PM | | | | | PDT | | + + + + + | Oxygen Saturation | 96% | 10/09/2013 7:25 PM | | | | | PDT | | + + + + + | Inhaled Oxygen | - | - | | | Concentration | | | | + + + + + | Weight | 54.9 kg (121 lb) | 10/09/2013 7:25 PM | | | | | PDT | | + + + + + | Height | 162.6 cm (5' 4") | 10/09/2013 7:25 PM | | | | | PDT | | + + + + + | Body Mass Index | 20.77 | 10/09/2013 7:25 PM | | | | | PDT | | + + + + + documented in this encounter Discharge Instructions Instructions Armin Berger MD - 10/09/2013I don't see signs of a hernia at this emilie e If this happens again, the bulging area becomes painful and will go away return right away If it happens again but the bulge is not painful and goes away easily he don't need to come in Okay to continue your usual medications documented in this encounter Medications at Time of Discharge + + + +---------+--------+ + | Medication | Sig | Dispensed | Refills | Start | End Date | | | | | | Date | | + + + +---------+--------+ + | Atenolol (TENORMIN | Take 1/2 tablet by | | 0 | | | | PO) | mouth 3 times a week | | | | | + + + +---------+--------+ + | Calcium | Take 1/2 tablet by | | 0 | | | | Carbonate-Vitamin D | mouth 2 times daily | | | | | | (CALCIUM 600 + D PO) | before meals | | | | | + + + +---------+--------+ + | CHONDROITIN | Take 500 mg by mouth | | 0 | | | | SULFATE PO | Daily. | | | | | + + + +---------+--------+ + | Glucosamine | Take 1,000 mg by | | 0 | | | | Sulfate 1000 MG TABS | mouth Daily. | | | | | + + + +---------+--------+ + | | Take 1 tablet by | | 0 | | | | HYDROcodone-acetamin | mouth as needed. | | | | | | ophen (LORTAB) | | | | | | | 7.5-500 mg per | | | | | | | tablet | | | | | | + + + +---------+--------+ + | Multiple | Take 1 each by mouth | | 0 | | | | Vitamins-Minerals | Daily. | | | | | | (MULTIVITAMIN PO) | | | | | | + + + +---------+--------+ + | omeprazole | Take 20 mg by mouth | | 0 | | | | (PRILOSEC) 20 mg | Daily. | | | | | | capsule | | | | | | + + + +---------+--------+ + | Potassium Chloride | Take 10 mEq by mouth | | 0 | | | | (KLOR-CON 10 PO) | Three times a week. | | | | | + + + +---------+--------+ + | pravastatin | Take 20 mg by mouth | | 0 | | | | (PRAVACHOL) 20 mg | nightly. | | | | | | tablet | | | | | | + + + +---------+--------+ + | Wheat Dextrin | Take by mouth. | | 0 | | | | (BENEFIBER DRINK MIX | Powder. 1 by mouth | | | | | | PO) | daily as needed | | | | | + + + +---------+--------+ + documented as of this encounter Plan of Treatment +--------+---------+ + + + | Date | Type | Specialty | Care Team | Description | +--------+---------+ + + + | 03/30/ | Office | Otolaryngology | Jonel Martin MD | | | 2020 | Visit | | [address] [place] | | | | | | [address] [place], | | | | | | [place] [address] | | | | | | [phone] | | | | | | | | +--------+---------+ + + + documented as of this encounter Procedures + +--------+ + + + | Procedure Name | Priori | Date/Time | Associated Diagnosis | Comments | | | ty | | | | + +--------+ + + + | XR ABDOMEN AP | STAT | 10/09/2013 | | Results for this | | UPRIGHT KUB AND PA | | 8:10 PM | | procedure are in the | | CHEST | | PDT | | results section. | + +--------+ + + + documented in this encounter Results XR Abd Supine and Upright w 1 Vw Chest (10/09/2013 8:10 PM PDT) + + | Specimen | + + | | + + + + + | Narrative | Performed At | + + + | THREE VIEWS CHEST AND ABDOMEN 10/09/2013 8:00 PM CLINICAL | [facility] | | HISTORY: ABDOMINAL MASS COMPARISON: CT ABDOMEN AND PELVIS MAY | LAB | | 2008, CHEST RADIOGRAPH DECEMBER 11, 2007 FINDINGS: CHEST: | | | Calcification and tortuosity of the thoracic aorta persist. There is | | | similar cardiomegaly. Mediastinum and pulmonary vasculature are | | | otherwise unremarkable. The lungs appear somewhat hyperinflated and | | | demonstrate stable, mild basilar reticular opacity. The upper lung | | | brown are clear. No pneumothorax or pleural effusion is visible. | | | There is generalized osteopenia with chronic compression deformity | | | of a lower thoracic vertebral body and multilevel spondylosis. | | | ABDOMEN: Gas and average stool are visible within nondilated colon. | | | No dilated bowel or free air is visible. No obvious mass effect | | | on the visible bowel is identified. No abnormal calcification is | | | evident. Prominent rightward lower thoracic and lumbar curvature | | | persists and there is multilevel degenerative disc disease and | | | spondylosis. IMPRESSION - 1. NO EVIDENCE OF BOWEL OBSTRUCTION | | | OR OBVIOUS MASS EFFECT. CONSIDER FOLLOW-UP CROSS-SECTIONAL IMAGING. | | | 2. 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 MILD BASILAR RETICULAR OPACITY IS | | | CHRONIC AND FAVORS ATELECTASIS/FIBROTIC CHANGE. 3. OSTEOPENIA, | | | SCOLIOSIS AND CHRONIC LOWER THORACIC COMPRESSION FRACTURE. | | | Dictated and Signed by: Von Bush MD Electronically signed: | | | 10/10/2013 1:56 PM | | + + + + + | Procedure Note | + + | Benja, Rad Results In - 10/10/2013 2:00 PM PDT THREE VIEWS CHEST AND ABDOMEN 10/09/2013 | | 8:00 PMCLINICAL HISTORY: ABDOMINAL MASSCOMPARISON: CT ABDOMEN AND PELVIS JUNE 17, | | 2008, CHEST RADIOGRAPH NovemberFINDINGS:CHEST: Calcification and tortuosity of | | the thoracic aorta persist. There issimilar cardiomegaly. Mediastinum and pulmonary | | vasculature are otherwiseunremarkable. The lungs appear somewhat hyperinflated and | | demonstrate stable,mild basilar reticular opacity. The upper lung brown are clear. | | Nopneumothorax or pleural effusion is visible. There is generalized osteopeniawith | | chronic compression deformity of a lower thoracic vertebral body andmultilevel | | spondylosis.ABDOMEN: Gas and average stool are visible within nondilated colon. No | | dilatedbowel or free air is visible. No obvious mass effect on the visible bowel | | isidentified. No abnormal calcification is evident. Prominent rightward lowerthoracic | | and lumbar curvature persists and there is multilevel degenerative discdisease and | | spondylosis.IMPRESSION -1. NO EVIDENCE OF BOWEL OBSTRUCTION OR OBVIOUS MASS EFFECT. | | CONSIDERFOLLOW-UP CROSS-SECTIONAL IMAGING.2. STABLE CARDIOMEGALY AND PULMONARY | | HYPERINFLATION CONSISTENT WITH OBSTRUCTIVELUNG DISEASE. MILD BASILAR RETICULAR OPACITY | | IS CHRONIC AND FAVORSATELECTASIS/FIBROTIC CHANGE.3. OSTEOPENIA, SCOLIOSIS AND CHRONIC | | LOWER THORACIC COMPRESSION FRACTURE.Dictated and Signed by: Von Bush MD | | Electronically signed: 10/10/2013 1:56 PM | |bowel or free air is visible. No obvious mass effect on the visible bowel is | |identified. No abnormal calcification is evident. Prominent rightward lower | |thoracic and lumbar curvature persists and there is multilevel degenerative disc | |disease and spondylosis. | | | |IMPRESSION - | |1. NO EVIDENCE OF BOWEL OBSTRUCTION OR OBVIOUS MASS EFFECT. CONSIDER | |FOLLOW-UP CROSS-SECTIONAL IMAGING. | | | |2. STABLE CARDIOMEGALY AND PULMONARY HYPERINFLATION CONSISTENT WITH OBSTRUCTIVE | |LUNG DISEASE. MILD BASILAR RETICULAR OPACITY IS CHRONIC AND FAVORS | |ATELECTASIS/FIBROTIC CHANGE. | | | |3. OSTEOPENIA, SCOLIOSIS AND CHRONIC LOWER THORACIC COMPRESSION FRACTURE. | | | |Dictated and Signed by: Von Bush MD | | Electronically signed: 10/10/2013 1:56 PM | + + + +---------+ + + | Performing | Address | [facility] Phone Number | | Organization | | | | + +---------+ + + | [facility] | | | [phone] | + +---------+ + + | [facility] | | | [phone] | + +---------+ + + documented in this encounter Visit Diagnoses + + | Diagnosis | + + | Gas - Primary Flatulence, eructation, and gas pain | + + documented in this encounter
--- OUTSIDE RECORDS SUMMARY | ~2019-03-11 | XMS | Encounter Summary ---
Demographics + + + | Address | [address] | | | [place] [address] | + + + | Home Phone | | + + + | Preferred Language | Unknown | + + + | Marital Status | | + + + | Presybeterian Affiliation | 1077 | + + + | Race | Unknown | + + + | Ethnic Group | Unknown | + + + Author + + + | Author | [facility] | | | and [place] | + + + | Organization | [facility] | | | [...] [place] | | | | | [address] | | + + + + + Care Team Providers + +------+ + | Care Addiction Counselor Name | Role | Phone | + +------+ + PCP | Unavailable | + +------+ + Encounter Details +--------+ + + + + | Date | Type | Department | Care Team | Description | +--------+ + + + + | 01/25/ | Hospital | [facility] | | | | 2007 - | Encounter | MED CTR CANCER | | | | | | CENTER [address] | | | | 02/24/ | | [place] | | | | 2007 | | [address] | | | | | | [phone] | | | +--------+ + + + [...] [place], | | | | | | [place] [address] | | | | | | [phone] | | | | | | | | +--------+---------+ + + + documented as of this encounter Visit Diagnoses Not on filedocumented in this encounter"
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
--- OUTSIDE RECORDS SUMMARY | ~2019-03-11 | XMS | Encounter Summary ---
Demographics + + + | Address | [address] | | | [place] [address] | + + + | Home Phone | | + + + | Preferred Language | Unknown | + + + | Marital Status | | + + + | Moravian Affiliation | 1077 | + + + | Race | Unknown | + + + | Ethnic Group | Unknown | + + + Author + + + | Author | [facility] | | | and [place] | + + + | Organization | [facility] | | [...] [place] | | | | | [address] | | + + + + + Care Team Providers + +------+ + | Care Spray Machine Tender Name | Role | Phone | + +------+ + PCP | Unavailable | + +------+ + Encounter Details +--------+ + + + + | Date | Type | Department | Care Team | Description | +--------+ + + + + | 04/30/ | Hospital | [facility] | | | | 2008 - | Encounter | [facility] | | | | | | CENTER [address] | | | | 05/25/ | | [place] | | | | 2008 | | [address] | | | | | | [phone] | | | +--------+ + + + [...] [place], | | | | | | [place] [address] | | | | | | [phone] | | | | | | | | +--------+---------+ + + + documented as of this encounter Visit Diagnoses Not on filedocumented in this encounter"
--- OUTSIDE RECORDS SUMMARY | ~2019-03-11 | XMS | Encounter Summary ---
Demographics + + + | Address | [address] | | | [place] [address] | + + + | Home Phone | | + + + | Preferred Language | Unknown | + + + | Marital Status | | + + + | Scientology Affiliation | 1077 | + + + | Race | Unknown | + + + | Ethnic Group | Unknown | + + + Author + + + | Author | [facility] | | | and [place] | + + + | Organization | [facility] | | | [...] [place] | | | | | [address] | | + + + + + Care Team Providers + +------+ + | Care Corporate Bond Trader Name | Role | Phone | + +------+ + PCP | Unavailable | + +------+ + Encounter Details +--------+ + + + + | Date | Type | Department | Care Team | Description | +--------+ + + + + | 04/30/ | Hospital | [facility] | | | | 2008 - | Encounter | [facility] | | | | | | CENTER [address] | | | | 05/25/ | | [place] | | | | 2008 | | [address] | | | | | | [phone] | | | +--------+ + + + [...] [place], | | | | | | [place] [address] | | | | | | [phone] | | | | | | | | +--------+---------+ + + + documented as of this encounter Visit Diagnoses Not on filedocumented in this encounter"
--- OUTSIDE RECORDS SUMMARY | ~2019-03-11 | XMS | Encounter Summary ---
Demographics + + + | Address | [address] | | | [place] [address] | + + + | Home Phone | | + + + | Preferred Language | Unknown | + + + | Marital Status | | + + + | Cheondoism Affiliation | 1077 | + + + [...] [place] | | | | | [address] | | + + + + + Care Team Providers + +------+ + | Care Production Director Name | Role | Phone | + [...] + + | 10/09/ | Emergency | [facility] | Armin Berger | Gas (Primary Dx) | | 2013 | | [facility] | MD Chris [address] | | | | | CENTER [address] | [address] [facility] | | | | | [place], [place] | [place] [address] | | | | | [address] | [phone] | | | | | [phone] | | | +--------+ + + + [...] | | | | | | [place] [address] | | | | | | [phone] | | | | | | | [...] + + | Performing | Address | City[facility] | Phone Number | | Organization | | | | + +---------+ + + | [facility] | | | [phone] | + +---------+ + + | [facility] | | | [phone] | + +---------+ + + documented in this encounter Visit Diagnoses + + | Diagnosis | + + | Gas - Primary Flatulence, eructation, and gas pain | + + documented in this encounter
--- OUTSIDE RECORDS SUMMARY | ~2019-03-11 | XMS | Encounter Summary ---
Demographics + + + | Address | [address] | | | [place] [address] | + + + | Home Phone | | + + + | Preferred Language | Unknown | + + + | Marital Status | | + + + | Advent Affiliation | 1077 | + + + | Race | Unknown | + + + | Ethnic Group | Unknown | + + + Author + + + | Author | [facility] | | | and [place] | + + + | Organization | [facility] | | | and [...] [place] | | | | | [address] | | + + + + + Care Team Providers + +------+ + | Care Rack Cleaner Name | Role | Phone | + +------+ + PCP | Unavailable | + +------+ + Encounter Details +--------+ + + + + | Date | Type | Department | Care Team | Description | +--------+ + + + + | 07/01/ | Hospital | [facility] | | | | 2009 - | Encounter | [facility] | | | | | | CENTER [address] | | | | 07/25/ | | [place] | | | | 2009 | | [address] | | | | | | [phone] | | | +--------+ + + + [...] [place], | | | | | | [place] [id number] | | | | | | [phone] | | | | | | | | +--------+---------+ + + + documented as of this encounter Visit Diagnoses Not on filedocumented in this encounter"
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
--- OUTSIDE RECORDS SUMMARY | ~2019-03-11 | XMS | Encounter Summary ---
Demographics + + + | Address | [address] | | | [place] [address] | + + + | Home Phone | | + + + | Preferred Language | Unknown | + + + | Marital Status | | + + + | Faith Affiliation | 1077 | + + + | Race | Unknown | + + + | Ethnic Group | Unknown | + + + Author + + + | Author | [facility] | | | and [place] | + + + | Organization | [facility] | | | and [place] | + + + | Address | Unknown | + + + | Phone | Unavailable | + + + Support + + + + + | Name | Relationship | Address | Phone | + + + + + | Scar Deleon | ECON | [address] | | | | | [place] | | | | | [address] | | + + + + + Care Team Providers + +------+ + | Care Securities Broker Name | Role | Phone | + +------+ + | John Del Cid MD | PCP | | + +------+ + Reason for Visit +--------+ + | Reason | Comments | +--------+ + | Hernia | left lower quad hernia pain | +--------+ + Encounter Details +--------+ + + + + | Date | Type | Department | Care Team | Description | +--------+ + + + + | 10/10/ | Emergency | [facility] | Armin Berger | Abdominal pain | | 2013 | | [facility] | MD Chris [address] | (Primary Dx) | | | | CENTER [address] | [facility] | | | | | [place] | [place] [address] | | | | | [address] | [phone] | | | | | [phone] | | | +--------+ + + + [...] Discharge Instructions Instructions Armin Berger MD - 10/10/2013Continue your usual medications and bowel regimen Take hydrocodone if needed for pain Call your Dr. Carrera documented in this encounter Medications at Time [...] 0.5-1 tablets | 20 | 0 | 08/16/20 | | | HYDROcodone-acetamin | by mouth [...] | Visit | | [address] [facility] | | | | | | [address] [place], | | | | | | [place] [address] | | | | | | [phone] | | | | | | | | +--------+---------+ + + + documented as of this encounter Procedures + +--------+ + + + | Procedure Name | Priori | Date/Time | Associated Diagnosis | Comments | | | ty | | | | + +--------+ + + + | POCT URINALYSIS | STAT | 10/10/2013 | | Results for this | | DIPSTICK | | 8:50 PM | | procedure are in the | | | | PDT | | results section. | + +--------+ + + + | CT ABDOMEN PELVIS W | STAT | 10/10/2013 | | Results for this | | CONTRAST | | 8:18 PM | | procedure are in the | | | | PDT | | results section. | + +--------+ + + + | LIPASE | STAT | 10/10/2013 | | Results for this | | | | 8:10 PM | | procedure are in the | | | | PDT | | results section. | + +--------+ + + + | COMPREHENSIVE | STAT | 10/10/2013 | | Results for this | | METABOLIC PANEL | | 8:10 PM | | procedure are in the | | | | PDT | | results section. | + +--------+ + + + | CBC WITH | STAT | 10/10/2013 | | Results for this | | DIFFERENTIAL | | 8:00 PM | | procedure are in the | | | | PDT | | results section. | + +--------+ + + + documented in this encounter Results POCT Urinalysis Dipstick Non-Automated (10/10/2013 8:50 PM PDT) + + + + + + | Component | Value | Ref Range | Performed | Pathologist | | | | | At | Signature | + + + + + + | Color, UA, | Yellow | | | | | POC | | | | | + + + + + + | Clarity, | Clear | | | | | UA, POC | | | | | + + + + + + | Glucose, | Negative | | | | | UA, POC | | | | | + + + + + + | Bilirubin, | Negative | | | | | UA, POC | | | | | + + + + + + | Ketones, | 15 mg/dL (A) | Negative | | | | UA, POC | | | | | + + + + + + | Specific | 1.010 | | | | | [place], | | | | | | UA, POC | | | | | + + + + + + | Blood, UA, | Small | | | | | POC | | | | | + + + + + + | pH, UA, POC | 7.0 | | | | + + + + + + | Protein, | Negative | | | | | UA, POC | | | | | + + + + + + | Urobilinoge | 0.2 E.U./dL | | | | | n, UA, POC | | | | | + + + + + + | Nitrite, | Negative | | | | | UA, POC | | | | | + + + + + + | Leukocyte | Negative | | | | | Esterase, | | | | | | UA, POC | | | | | + + + + + + + + | Specimen | + + | Urine specimen | | (specimen) | + + CT Abdomen Pelvis w Contrast (10/10/2013 8:18 PM PDT) + + | Specimen | + + | | + + + + + | Narrative | Performed At | + + + | ENHANCED CT ABDOMEN AND PELVIS 10/10/2013 7:54 PM CLINICAL | MISC[facility]ANI[facility] | | HISTORY: Pain , previously reported history of rectal cancer | LAB | | COMPARISON: CT abdomen and pelvis June 17, 2008 and December 10, | | | 2008, chest and abdominal radiographs October 09, 2013 TECHNIQUE: | | | Axial images are performed through the abdomen and pelvis following | | | the uneventful intravenous administration of 80 mL Omnipaque 350 | | | contrast. Coronal and sagittal reformations are also | | | performed. ABDOMEN FINDINGS: Minimal bandlike opacities in the | | | imaged lung bases are consistent with atelectasis/scar. Imaged | | | mediastinum is unremarkable. There is a stable tiny, rounded | | | hypodensity inferiorly in the medial segment left hepatic lobe, | | | favoring a cyst. No other hepatic parenchymal abnormality is | | | evident. The gallbladder is absent. The biliary tree is more | | | pronounced, with the common bile duct now measuring up to 1.3 cm in | | | diameter proximally, compared to 1.1 cm on the study from May 2008, | | | and mild intrahepatic biliary ductal dilation is visible as well. | | | No cause for mechanical biliary obstruction is visible. Pancreas | | | divisum is noted. The pancreas, spleen, and adrenal glands are | | | otherwise unremarkable. Mild prominence of the right extrarenal | | | pelvis is noted and appears stable, without associated intrarenal | | | collecting system or ureteral dilation. The left renal collecting | | | system and renal pelvis are at least mildly dilated but also appear | | | similar to previous studies. There is no left ureteral dilation. | | | No renal parenchymal abnormality or renal or ureteral calculus is | | | evident. Previously described lower rectal/anal wall thickening | | | appears to have resolved in the interim. The bowel is now | | | unremarkable, without evidence of obstruction or inflammation. The | | | appendix appears to be surgically absent. No free air, free fluid, | | | pathologic lymph node enlargement or hernia is evident. There is | | | scattered aortoiliac calcification. There is generalized osteopenia | | | with persistent severe lumbar dextroscoliosis. Moderate compression | | | deformity of the inferior T12 vertebral endplate is new from lumbar | | | MRI of August 02, 2008, but is otherwise uncertain acuity. There is | | | posterior vertebral spondylosis at the T12-L1 level, contributing to | | | at least mild bony central canal and neuroforaminal stenosis. There | | | is extensive degenerative disc disease and spondylosis involving | | | several other levels of the lumbar spine with variable central canal | | | and neuroforaminal stenosis. PELVIS FINDINGS: Prominent, | | | serpiginous vessels persist in the left parametrial and adnexal | | | region and are similar to previous, along with prominence of the left | | | ovarian vein. The bladder and right adnexal region are | | | unremarkable. No free air, free fluid, pathologic lymph node | | | enlargement, or hernia is evident. There is generalized osteopenia | | | with moderate, asymmetric degeneration of the right hip. | | | IMPRESSION - 1. SLIGHTLY INCREASED INTRA AND EXTRAHEPATIC | | | BILIARY DUCTAL DILATION COMPARED WITH CT OF JUNE 17, 2008, | | | POTENTIALLY RELATED TO THE PATIENT'S POST-CHOLECYSTECTOMY STATUS. | | | CLINICAL AND LABORATORY CORRELATION ADVISED. 2. PANCREAS | | | DIVISUM WITHOUT SUSPICION FOR PANCREATITIS. 3. SIMILAR | | | PROMINENCE OF THE RIGHT RENAL PELVIS AND MILD TO MODERATE DILATION OF | | | THE LEFT RENAL COLLECTING SYSTEM AND RENAL PELVIS, WITHOUT URETERAL | | | DILATION. CONSIDER FOLLOW-UP CT IVP OR NUCLEAR RENOGRAM. 4. | | | ATHEROSCLEROSIS, OSTEOPENIA AND LUMBAR DEGENERATIVE DISC DISEASE AND | | | SPONDYLOSIS WITH NEW, MODERATE COMPRESSION DEFORMITY OF THE INFERIOR | | | T12 VERTEBRAL BODY COMPARED WITH STUDIES FROM 2008, BUT OTHERWISE OF | | | UNCERTAIN ACUITY. 5. SIMILAR PROMINENT, SERPIGINOUS VESSELS IN | | | THE LEFT PELVIC CAVITY, WHICH MAY BE SEEN WITH PELVIC CONGESTION | | | SYNDROME. Preliminary results of this study were reported to the | | | ER staff by the [facility] radiologist on October 10, 2013 at 2051 | | | hours. Dictated and Signed by: Von Bush MD Electronically | | | signed: 10/11/2013 12:19 PM | | + + + + + | Procedure Note | + + | Benja, Rad Results In - 10/11/2013 12:[address] ABDOMEN AND PELVIS | | 10/10/2013 7:54 PM CLINICAL HISTORY: Pain , previously reported history of rectal cancer | | COMPARISON: CT abdomen and pelvis June 17, 2008 and December 11, 2007, chestand | | abdominal radiographs October 09, 2013 TECHNIQUE: Axial images are performed through the | | abdomen and pelvis followingthe uneventful intravenous administration of 80 mL Omnipaque | | 350 contrast. Coronal and sagittal reformations are also performed. ABDOMEN | | FINDINGS: Minimal bandlike opacities in the imaged lung bases areconsistent with | | atelectasis/scar. Imaged mediastinum is unremarkable. There rafa stable tiny, rounded | | hypodensity inferiorly in the medial segment left hepaticlobe, favoring a cyst. No | | other hepatic parenchymal abnormality is evident. The gallbladder is absent. The | | biliary tree is more pronounced, with the commonbile duct now measuring up to 1.3 cm in | | diameter proximally, compared to 1.1 cmon the study from May 2008, and mild | | intrahepatic biliary ductal dilation isvisible as well. No cause for mechanical biliary | | obstruction is visible. Pancreas divisum is noted. The pancreas, spleen, and adrenal | | glands areotherwise unremarkable. Mild prominence of the right extrarenal pelvis is | | notedand appears stable, without associated intrarenal collecting system or | | ureteraldilation. The left renal collecting system and renal pelvis are at least | | mildlydilated but also appear similar to previous studies. There is no left | | ureteraldilation. No renal parenchymal abnormality or renal or ureteral calculus | | isevident.Previously described lower rectal/anal wall thickening appears to have | | resolvedin the interim. The bowel is now unremarkable, without evidence of | | obstructionor inflammation. The appendix appears to be surgically absent. No free | | air,free fluid, pathologic lymph node enlargement or hernia is evident. There | | isscattered aortoiliac calcification. There is generalized osteopenia withpersistent | | severe lumbar dextroscoliosis. Moderate compression deformity of theinferior T12 | | vertebral endplate is new from lumbar MRI of August 02, 2008, but isotherwise uncertain | | acuity. There is posterior vertebral spondylosis at [id number] level, contributing to at | | least mild bony central canal andneuroforaminal stenosis. There is extensive | | degenerative disc disease andspondylosis involving several other levels of the lumbar | | spine with variablecentral canal and neuroforaminal stenosis. PELVIS FINDINGS: | | Prominent, serpiginous vessels persist in the left parametrialand adnexal region and are | | similar to previous, along with prominence of theleft ovarian vein. The bladder and | | right adnexal region are unremarkable. Nofree air, free fluid, pathologic lymph node | | enlargement, or hernia is evident. There is generalized osteopenia with moderate, | | asymmetric degeneration of theright hip. IMPRESSION - 1. SLIGHTLY INCREASED INTRA AND | | EXTRAHEPATIC BILIARY DUCTAL DILATION COMPAREDWITH CT OF JUNE 17, 2008, POTENTIALLY | | RELATED TO THE PATIENT'SPOST-CHOLECYSTECTOMY STATUS. CLINICAL AND LABORATORY | | CORRELATION ADVISED.2. PANCREAS DIVISUM WITHOUT SUSPICION FOR PANCREATITIS.3. SIMILAR | | PROMINENCE OF THE RIGHT RENAL PELVIS AND MILD TO MODERATE DILATIONOF THE LEFT RENAL | | COLLECTING SYSTEM AND RENAL PELVIS, WITHOUT URETERAL DILATION. CONSIDER FOLLOW-UP CT IVP | | OR NUCLEAR RENOGRAM.4. ATHEROSCLEROSIS, OSTEOPENIA AND LUMBAR DEGENERATIVE DISC | | DISEASE ANDSPONDYLOSIS WITH NEW, MODERATE COMPRESSION DEFORMITY OF THE INFERIOR | | [id number] BODY COMPARED WITH STUDIES FROM 2008, BUT OTHERWISE OF UNCERTAINACUITY.5. | | SIMILAR PROMINENT, SERPIGINOUS VESSELS IN THE LEFT PELVIC CAVITY, WHICH MAYBE SEEN WITH | | PELVIC CONGESTION SYNDROME.Preliminary results of this study were reported to the ER | | [facility] 2051 [facility].Dictated and Signed | | by: Von Bush MD Electronically signed: 10/11/2013 12:19 PM | |IMPRESSION - | |1. SLIGHTLY INCREASED INTRA AND EXTRAHEPATIC BILIARY DUCTAL DILATION COMPARED | |WITH CT OF JUNE 17, 2008, POTENTIALLY RELATED TO THE PATIENT'S | |POST-CHOLECYSTECTOMY STATUS. CLINICAL AND LABORATORY CORRELATION ADVISED. | | | |2. PANCREAS DIVISUM WITHOUT SUSPICION FOR PANCREATITIS. | | | |3. SIMILAR PROMINENCE OF THE RIGHT RENAL PELVIS AND MILD TO MODERATE DILATION | |OF THE LEFT RENAL COLLECTING SYSTEM AND RENAL PELVIS, WITHOUT URETERAL DILATION. | | CONSIDER FOLLOW-UP CT IVP OR NUCLEAR RENOGRAM. | | | |4. ATHEROSCLEROSIS, OSTEOPENIA AND LUMBAR DEGENERATIVE DISC DISEASE AND | |SPONDYLOSIS WITH NEW, MODERATE COMPRESSION DEFORMITY OF THE INFERIOR T12 | |VERTEBRAL BODY COMPARED WITH STUDIES FROM 2009, BUT OTHERWISE OF UNCERTAIN | |ACUITY. | | | |5. SIMILAR PROMINENT, SERPIGINOUS VESSELS IN THE LEFT PELVIC CAVITY, WHICH MAY | |BE SEEN WITH PELVIC CONGESTION SYNDROME. | | | |Preliminary results of this study were reported to the ER staff by the [facility] | |radiologist on October 10, 2013 at 2051 hours. | | | |Dictated and Signed by: Von Bush MD | | Electronically signed: 10/11/2013 12:19 PM | + + + +---------+ + + | Performing | Address | City/State/Zipcode | Phone Number | | Organization | | | | + +---------+ + + | [facility] | | | [phone] | + +---------+ + + | [facility] | | | [phone] | + +---------+ + + Lipase (10/10/2013 8:10 PM PDT) + +-------+ + + + | Component | Value | Ref Range | Performed | Pathologist | | | | | At | Signature | + +-------+ + + + | Lipase | 26 | 0 - 60 U/L | [facility] | | | | | | [facility] | | [...] + | [facility] | [address] | [place] | [phone] | | [facility] | | [address] | | | - LABORATORY | | | | + + + + + | [facility] | [address] | [place], [place] | | | [facility] | | [address] | | | - LABORATORY | | | | + + + + + Comprehensive Metabolic Panel (10/10/2013 8:10 PM PDT) + + + + + + | Component | Value | Ref Range | Performed | Pathologist | | | | | At | Signature | + + + + + + | Na | 132 (L) | 136 - 149 | [facility] | | | | | mmol/L | [facility] | | | | | | [facility] | | | | | | C[facility] - | | | | | | LABORATORY | | + + + + + + | K | 4.1 | 3.5 - 5.1 | [facility] | | | | | mmol/L | [facility] | | | | | | MEDICAL | | | | | | CENTER - | | | | | | LABORATORY | | + + + + + + | Cl | 98 | 98 - 109 mmol/L | [facility] | | | | | | [facility] | | | | | | MEDICAL | | | | | | CENTER - | | | | | | LABORATORY | | + + + + + + | CO2 | 25 | 24 - 31 mmol/L | [facility] | | | | | | [facility] | | | | | | MEDICAL | | | | | | CENTER - | | | | | | LABORATORY | | + + + + + + | Anion Gap | 9 | 3 - 16 mmol/L | [facility] | | | | | | [facility] | | | | | | [facility] | | | | | | CENTER - | | | | | | LABORATORY | | + + + + + + | Glucose | 119 (H) | 70 - 109 mg/dL | [facility] | | | | | [facility] | | | | | | [facility]ICAL | | | | | | CENTER - | | | | | | LABORATORY | | + + + + + + | BUN | 10 | 7 - 18 mg/dL | [facility] | | | | | [facility] | | | | | | [facility] | | | | | | CENTER - | | | | | | LABORATORY | | + + + + + + | Creatinine | 0.74 | 0.60 - 1.30 | [facility] | | | | | mg/dL | [facility] | | [facility] | [facility] | | | | | | [facility] - | | | | | | LABORATORY | | + + + + + + | eGFR if not | >60Comment: GLOMERULAR | >=60 | [facility] | | | | FILTRATION | mL/min/1.73m2 | [facility] | | | [facility] | RATE,ESTIMATED | | MEDICAL | | | | mL/min/1.63o9Gzom than | | CENTER - | | [...] | | | | | mg/dL | [facility] | | | | | | MEDICAL | | | | | | CENTER - | | | | | | LABORATORY | | + + + + + + | Albumin | 4.0 | 3.2 - 5.0 g/dL | [facility] | | | | | | [facility] | | | | | | MEDICAL | | | | | | CENTER - | | | | | | LABORATORY | | + + + + + + | Bilirubin | 1.1 | 0.1 - 1.5 mg/dL | [facility] | | | Total | | | [facility] | | | | | | MEDICAL | | | | | | CENTER - | | | | | | LABORATORY | | + + + + + + | Total | 6.2 | 6.0 - 7.8 g/dL | [facility] | | | Protein | | | [facility] | | | | | | MEDICAL | | | | | | CENTER - | | | | | | LABORATORY | | + + + + + + | AST | 20 | 10 - 42 U/L | [facility] | | | | | | [facility] | | | | | | MEDICAL | | | | | | CENTER - | | | | | | LABORATORY | | + + + + + + | ALT | 14 | 6 - 45 U/L | [facility] | | | | | | [facility] | | | | | | MEDICAL | | | | | | CENTER - | | | | | | LABORATORY | | + + + + + + | Alkaline | 55 | 40 - 110 U/L | [facility] | | | Phosphatase | | | [facility] | | | | | | MEDICAL | | | | | | CENTER - | | | | | | LABORATORY | | + + + + + + | Globulin | 2.2 | g/dL | [facility] | | | | | | [facility] | | | | | | MEDICAL | | | | | | CENTER - | | | | | | LABORATORY | | + + + + + + | Albumin/Aminta | 1.8 | | [facility] | | | bulin Ratio | | | [facility] | | | | | | MEDICAL | | | | | | CENTER - | | | | | | LABORATORY | | + + + + + + | BUN/Creatin | 13.5 | | [facility] | | | ine [...] + | [facility] | [address] | [place] | [phone] | | [facility] | | [address] | | | - LABORATORY | | | | + + + + + | [facility] | [address] | [place] | | | [facility] | | [address] | | | - LABORATORY | | | | + + + + + CBC with Differential (10/10/2013 8:00 PM PDT) + +---------+ + + + | Component | Value | Ref Range | Performed | Pathologist | | | | | At | Signature | + +---------+ + + + | WBC | 7.0 | 4.0 - 11.0 K/uL | [facility] | | | | | [facility] | | | | | [facility]ICAL | | | | | | CENTER - | | | | | | LABORATORY | | + +---------+ + + + | RBC | 4.19 | 3.70 - 5.20 | [facility] | | | | | M/uL | [facility] | | | | | | MEDICAL | | | | | | CENTER - | | | | | | LABORATORY | | + +---------+ + + + | Hemoglobin | 13.1 | 11.5 - 16.0 | [facility] | | | | | g/dL | [facility] | | | | | | [facility]ICAL | | | | | | CENTER - | | | | | | LABORATORY | | + +---------+ + + + | Hematocrit | 37.8 | 34.0 - 47.0 % | [facility] | | | | | | [facility] | | | | | | MEDICAL | | | | | | CENTER - | | | | | | LABORATORY | | + +---------+ + + + | MCV | 90.1 | 83.0 - 101.0 fL | [facility] | | | | | | [facility] | | | | | | [facility]ICAL | | | | | | CENTER - | | | | | | LABORATORY | | + +---------+ + + + | MCH | 31.2 | 28.0 - 35.0 pg | [facility] | | | | | | [facility] | | | | | | MEDICAL | | | | | | CENTER - | | | | | | LABORATORY | | + +---------+ + + + | MCHC | 34.6 | 32.0 - 36.0 | [facility] | | | | | g/dL | [facility] | | | | | | MEDICAL | | | | | | CENTER - | | | | | | LABORATORY | | + +---------+ + + + | RDW-CV | 13.7 | <15.0 % | [facility] | | | | | | [facility] | | | | | | [facility]ICAL | | | | | | CENTER - | | | | | | LABORATORY | | + +---------+ + + + | Platelet | 183 | 140 - 440 K/uL | [facility] | | | Count | | | [facility] | | | | | | MEDICAL | | | | | | CENTER - | | | | | | LABORATORY | | + +---------+ + + + | MPV | 6.9 | fL | [facility] | | | | | | [facility] | | | | | | [facility]ICAL | | | | | | CENTER - | | | | | | LABORATORY | | + +---------+ + + + | % | 81.2 | 45.0 - 82.0 % | [facility] | | | Neutrophils | | | [facility] | | | | | | MEDICAL | | | | | | CENTER - | | | | | | LABORATORY | | + +---------+ + + + | % | 8.3 (L) | 20.0 - 45.0 % | [facility] | | | Lymphocytes | | | [facility] | | | | | | MEDICAL | | | | | | CENTER - | | | | | | LABORATORY | | + +---------+ + + + | % Monocytes | 8.9 | 4.0 - 12.0 % | [facility] | | | | | | [facility] | | | | | | MEDICAL | | | | | | CENTER - | | | | | | LABORATORY | | + +---------+ + + + | % | 0.8 | 0.0 - 5.0 % | [facility] | | | Eosinophils | | | [facility] | | | | | | MEDICAL | | | | | | CENTER - | | | | | | LABORATORY | | + +---------+ + + + | % Basophils | 0.8 | 0.0 - 1.0 % | [facility] | | | | | | [facility] | | | | | | MEDICAL | | | | | | CENTER - | | | | | | LABORATORY | | + +---------+ + + + | Absolute | 5.70 | 1.80 - 8.50 | [facility] | | | Neutrophils | | K/uL | [facility] | | | | | | MEDICAL | | | | | | CENTER - | | | | | | LABORATORY | | + +---------+ + + + | Absolute | 0.60 | 0.60 - 3.20 | [facility] | | | Lymphocytes | | K/uL | [facility] | | | | | | [facility] | | | | | | CENTER - | | | | | | LABORATORY | | + +---------+ + + + | Absolute | 0.60 | 0.00 - 1.00 | [facility] | | | Monocytes | | K/uL | [facility] | | | | | | MEDICAL | | | | | | CENTER - | | | | | | LABORATORY | | + +---------+ + + + | Absolute | 0.10 | 0.00 - 0.40 | [facility] | | | Eosinophils | | K/uL | [facility] | | | | | | MEDICAL | | | | | | CENTER - | | | | | | LABORATORY | | + +---------+ + + + | Absolute | 0.10 | 0.00 - 0.10 | [facility] | | | Basophils | | K/uL | [facility] | | | | | | MEDICAL | | | | | | CENTER - | | | | | | LABORATORY | | + +---------+ + + + + + | Specimen | + + | Blood | + + + + + + + | Performing | Address | City/State/Zipcode | Phone Number | | Organization | | | | + + + + + | [facility] | [address] | [place], [place] | [phone] | | [facility] | | [address] | | | - LABORATORY | | | | + + + + + | [facility] | [address] | [place], [place] | | | [facility] | | [address] | | | - LABORATORY | | | | + + + + + documented in this encounter Visit Diagnoses + + | Diagnosis | + + | Abdominal pain - Primary Abdominal pain, unspecified site | + + documented in this encounter Administered Medications + + + + +------+------+ | Medication Order | MAR | Action | Dose | Rate | Site | | | Action | Date | | | | + + + + +------+------+ | HYDROcodone-acetaminophen | Dispense | 10/11/19 | 1 tablet | | | | (NORCO) 5-325 mg per tablet (ER | to Home | 14 9:20 | | | | | Prepack) 0.5-1 tablet 0.5-1 | | PM PDT | | | | | tablet, Oral, ONCE, 10/10/13 | | | | | | | at 2130, For 1 dose, Take 1 to 2 | | | | | | | pills by mouth every 4 hours as | | | | | | | needed for pain, | | | | | | + + + + +------+------+ +---+---+ | | | +---+---+ + +-------+ +--------+---+---+ | HYDROmorphone (PF) (DILAUDID) 1 | Given | 10/11/19 | 0.5 mg | | | | mg/mL injection 0.5 mg 0.5 mg, | | 14 7:58 | | | | | Intravenous, ONCE, 10/10/13 at | | PM PDT | | | | | 2000, For 1 dose | | | | | | + +-------+ +--------+---+---+ +---+---+ | | | +---+---+ + +-------+ +--------+---+---+ | HYDROmorphone (PF) (DILAUDID) 1 | Given | 10/11/19 | 0.5 mg | | | | mg/mL injection 0.5 mg 0.5 mg, | | 14 8:45 | | | | | Intravenous, EVERY 15 MIN PRN, | | PM PDT | | | | | Pain, Starting 10/10/13 at | | | | | | | 2000, For 5 doses | | | | | | + +-------+ +--------+---+---+ +-------+ +---+---+---+ | Given | 10/11/19 | | | | | | 14 8:25 | | | | | | PM PDT | | | | +-------+ +---+---+---+ +---+---+ | | | +---+---+ + +-------+ +--------+---+---+ | iohexol (OMNIPAQUE 350) 350 | Given | 10/11/19 | 80 mLs | | | | mg/mL injection 80 mL 80 mL, | | 14 8:19 | | | | | Intravenous, ONCE PRN, Other, | | PM PDT | | | | | Starting 10/10/13 at 2019, For | | | | | | | 1 dose, Cat Scanner | | | | | | + +-------+ +--------+---+---+ +---+---+ | | | +---+---+ + +-------+ +------+---+---+ | ondansetron (ZOFRAN) injection | Given | 10/11/19 | 4 mg | | | | 4 mg 4 mg, Intravenous, ONCE, | | 14 7:58 | | | | | 10/10/13 at 1999, For 1 dose | | PM PDT | | | | + +-------+ +------+---+---+ +---+---+ | | | +---+---+ + + + +--------+-------+---+ | sodium chloride 0.9% bolus | Restarte | 10/11/19 | 1,000 | 999 | | | 1,000 mL 1,000 mL, Intravenous, | d | 14 8:23 | mLs | mL/hr | | | Administer over 30 Minutes, ONCE, | | PM PDT | | | | | 10/10/13 at 1999, For 1 dose | | | | | | + + + +--------+-------+---+ +---------+ +--------+-------+---+ | New Bag | 10/11/19 | 1,000 | 2000 | | | | 14 7:55 | mLs | mL/hr | | | | PM PDT | | | | +---------+ +--------+-------+---+ +---+---+ | | | +---+---+ documented in this encounter
--- OUTSIDE RECORDS SUMMARY | ~2019-03-11 | XMS | Encounter Summary ---
Demographics + + + | Address | [address] | | | [place] [address] | + + + | Home Phone | | + + + | Preferred Language | Unknown | + + + | Marital Status | | + + + | Religion Affiliation | 1077 | + + + | Race | Unknown | + + + | Ethnic Group | Unknown | + + + Author + + + | Author | [facility] | | | and [place] | + + + | Organization | [facility] | | [...] [place] | | | | | [address] | | + + + + + Care Team Providers + +------+ + | Care Spot Billing Clerk Name | Role | Phone | + +------+ + PCP | Unavailable | + +------+ + Encounter Details +--------+ + + + + | Date | Type | Department | Care Team | Description | +--------+ + + + + | 07/07/ | Hospital | [facility] | | | | 2010 - | Encounter | MED CTR CANCER | | | | | | CENTER [address] | | | | 07/25/ | | [place] | | | | 2010 | | [address] | | | | | | [phone] | | | +--------+ + + + [...] she was last here in September o last year, although she insists it was [...] an anal dilat or. 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 PLAN: She will continue to see Dr. Azul. As noted, a full colonoscopy is planned in [facility]. She had proctoscopy about 6 months ago. An appointment was made for her to return her e after that colonoscopy for a routine follow up visit. DICTATED BY: Jorden Shahid M.D. Radiation Oncology JOB #: [id number] EXT JOB #:[id number] EDITED: 07/10/2010 08:37 cc: Mckayla Styles MD, [...] | Visit | | [address] [facility] | | | | | | [address] [place], | | | | | | [place] [address] | | | | | | [phone] | | | | | | | [...] 95 | 70 - 109 mg/dL | [facility] [...] 11 | 7 - 18 mg/dL | [facility] | | | | | | [facility] | | | | | | MEDICAL | | | | | | CENTER - | | | | | | LABORATORY | | + + + + + + | Creatinine | 0.75 | 0.60 - 1.30 | [facility] | | | | | mg/dL | [facility] | | | | | | MEDICAL | | | | | | CENTER - | | | | | | LABORATORY | | + + + + + + | Estimated | >60Comment: For | >60 mL/min/A | [facility] | | | GFR | -Americans, | [...] | 10.4 | 6.0 - 17.0 | [facility] | [...] | + + + + + | [facility] | [address] | [place] | [phone] | | [facility] | | [address] | | | - LABORATORY | | | | + + + + + | [facility] | [address] | [place] | | | [facility] | | [address] | | | - LABORATORY | | | | + + + + + Lactate Dehydrogenase (07/07/2010 10:07 AM PDT) + +-------+ + + + | Component | Value | Ref Range | Performed | Pathologist | | | | | At | Signature | + +-------+ + + + | LDH TOTAL | 136 | 91 - 180 IU/L | [facility] | | | | | [...] + + | [facility] | [address] | [place] | [phone] | | [facility] | | [address] | | | - LABORATORY | | | | + + + + + | [facility] | [address] | [place] | | | [facility] | | [address] | | | - LABORATORY | | | | + + + + + CBC with Differential (07/07/2010 10:07 AM PDT) + + + + + + | Component | Value | Ref Range | Performed | Pathologist | | | | | At | Signature | + + + + + + | WBC | 6.3 | 4.0 - 11.0 K/uL | [facility] | | | | | [facility] | | | | | | MEDICAL | | | | | | CENTER - | | | | | | LABORATORY | | + + + + + + | RBC | 4.31 | 3.70 - 5.20 | [...] | | | | gm/dL | [facility] | | | | [...] | | | Lymphocytes | | | [facility] | | [...] 0.0 | 0.0 - 0.1 K/uL | [facility] | | | Basophils | | | [facility] | | [...] + | [facility] | [address] | [place] | [phone] | | [facility] | | [address] | | | - LABORATORY | | | | + + + + + | [facility] | [address] | [place] | | | [facility] | | [address] | | | - LABORATORY | | | | + + + + + documented in this encounter Visit Diagnoses Not on filedocumented in this encounter"
--- OUTSIDE RECORDS SUMMARY | ~2019-03-11 | XMS | Encounter Summary ---
Demographics + + + | Address | [address] | | | [place] [address] | + + + | Home Phone | | + + + | Preferred Language | Unknown | + + + | Marital Status | | + + + | Mu-Ism Affiliation | 1077 | + + + [...] [place] | | | | | [address] | | + + + + + Care Team Providers + +------+ + | Care Category Planner Name | Role | Phone | + +------+ + PCP | Unavailable | + +------+ + Encounter Details +--------+ + + + + | Date | Type | Department | Care Team | Description | +--------+ + + + + | 02/25/ | Hospital | [facility] | | | | 2008 - | Encounter | MED CTR CANCER | | | | | | CENTER [address] | | | | 03/27/ | | [place] | | | | 2008 | | [address] | | | | | | [phone] | | | +--------+ + + + [...] [place], | | | | | | [place] [address] | | | | | | [phone] | | | | | | | | +--------+---------+ + + + documented as of this encounter Visit Diagnoses Not on filedocumented in this encounter"
--- OUTSIDE RECORDS SUMMARY | ~2019-03-11 | XMS | Encounter Summary ---
Demographics + + + | Address | [address] | | | [place] [address] | + + + | Home Phone | | + + + | Preferred Language | Unknown | + + + | Marital Status | | + + + | Latter-Day Affiliation | 1077 | + + + | Race | Unknown | + + + | Ethnic Group | Unknown | + + + Author + + + | Author | [facility] | | | and [place] | + + + | Organization | [facility] | | | and [...] | [place] | | | | | [address] | | + + + + + Care Team Providers + +------+ + | Care Wildlife Officer Name | Role | Phone | + +------+ + | No, Unknownpcp | PCP | | + +------+ + Encounter Details +--------+ + + + + | Date | Type | Department | Care Team | Description | +--------+ + + + + | 08/04/ | Hospital | [facility] | Emanuel Huang | | | 2012 - | Encounter | MED CTR CANCER | MD Scar [address] | | | | | [place] [address] | [address] [place] | | | 08/24/ | | [place], [place] | [place] [address] | | | 2012 | | [address] | [phone] | | | | | [phone] | | | +--------+ + + + [...] | 03/30/ | Office | Otolaryngology | Jonle Martin MD | | | 2019 | Visit | | [address] [facility] | | | | | | [address] [place], | | | | | | [place] [address] | | | | | | [phone] | | | | | | | [...] 112 | 35 - 160 mg/dL | [facility] | | | es | | | [...] + | [facility] | [address] | [place] | [phone] | | [facility] | | [address] | | | - LABORATORY | | | | + + + + + | [facility] | [address] | [place] | | | [facility] | | [address] | | | - LABORATORY | | | | + + + + + Comprehensive Metabolic Panel (08/04/2012 9:16 AM PDT) + + + + + + | Component | Value | Ref Range | Performed | Pathologist | | | | | At | Signature | + + + + + + | Glucose | 108 | 70 - 109 mg/dL | [facility] [...] | | | Phosphatase | | | [facility] | | [...] | 0.76 | 0.60 - 1.30 | [facility] | [...] | 13.2 | 12 - 20 | [facility] | | | ine Ratio | | | [facility] | | | | | | MEDICAL | | | | | | CENTER - | | | | | | LABORATORY | | + + + + + + | Na | 138 | 136 - 149 mEq/L | [facility] | | | | | [...] + | [facility] | [address] | [place], [place] | [phone] | | [facility] | | [address] | | | - LABORATORY | | | | + + + + + | [facility] | [address] | [place], [place] | | | [facility] | | [address] | | | - LABORATORY | | | | + + + + + documented in this encounter Visit Diagnoses Not on filedocumented in this encounter"
--- OUTSIDE RECORDS SUMMARY | ~2019-03-11 | XMS | Encounter Summary ---
Demographics + + + | Address | [address] | | | [place] [address] | + + + | Home Phone | | + + + | Preferred Language | Unknown | + + + | Marital Status | | + + + | Jehovah'S Witness Affiliation | 1077 | + + + | Race | Unknown | + + + | Ethnic Group | Unknown | + + + Author + + + | Author | [facility] | | | and [place] | + + + | Organization | [facility] | | | and [...] [place] | | | | | [address] | | + + + + + Care Team Providers + +------+ + | Care Mold Laminator Name | Role | Phone | + +------+ + PCP | Unavailable | + +------+ + Encounter Details +--------+ + + + + | Date | Type | Department | Care Team | Description | +--------+ + + + + | 01/25/ | Hospital | [facility] | | | | 2007 - | Encounter | MED CTR CANCER | | | | | | CENTER [address] | | | | 02/24/ | | [place] | | | | 2007 | | [address] | | | | | | [phone] | | | +--------+ + + + [...] [place], | | | | | | [place] [address] | | | | | | [phone] | | | | | | | | +--------+---------+ + + + documented as of this encounter Visit Diagnoses Not on filedocumented in this encounter"
--- OUTSIDE RECORDS SUMMARY | ~2019-03-11 | XMS | Encounter Summary ---
Demographics + + + | Address | [address] | | | [place] [address] | + + + | Home Phone | | + + + | Preferred Language | Unknown | + + + | Marital Status | | + + + | Yazidi Affiliation | 1077 | + + + | Race | Unknown | + + + | Ethnic Group | Unknown | + + + Author + + + | Author | [facility] | | | and [place] | + + + | Organization | [facility] | | | [...] [place] | | | | | [address] | | + + + + + Care Team Providers + +------+ + | Care Varnish Inspector Name | Role | Phone | + +------+ + PCP | Unavailable | + +------+ + Encounter Details +--------+ + + + + | Date | Type | Department | Care Team | Description | +--------+ + + + + | 03/10/ | Hospital | [facility] | | | | 2009 - | Encounter | MED CTR CANCER | | | | | | CENTER [address] | | | | 03/27/ | | [place] | | | | 2009 | | [address] | | | | | | [phone] | | | +--------+ + + + [...] | | | | | | [place] [address] | | | | | | [phone] | | | | | | | | +--------+---------+ + + + documented as of this encounter Visit Diagnoses Not on filedocumented in this encounter"
--- OUTSIDE RECORDS SUMMARY | ~2019-03-11 | XMS | Encounter Summary ---
Demographics + + + | Address | [address] | | | [place] [address] | + + + | Home Phone | | + + + | Preferred Language | Unknown | + + + | Marital Status | | + + + | Zoroastrian Affiliation | 1077 | + + + | Race | Unknown | + + + | Ethnic Group | Unknown | + + + Author + + + | Author | [facility] | | | and [place] | + + + | Organization | [facility] | | | and [...] [place] | | | | | [address] | | + + + + + Care Team Providers + +------+ + | Care Network Field Engineer Name | Role | Phone | + +------+ + PCP | Unavailable | + +------+ + Encounter Details +--------+ + + + + | Date | Type | Department | Care Team | Description | +--------+ + + + + | 06/17/ | Hospital | [facility] | | | | 2008 - | Encounter | MED CTR CANCER | | | | | | CENTER [address] | | | | 06/24/ | | [place] | | | | 2008 | | [address] | | | | | | [phone] | | | +--------+ + + + [...] [place], | | | | | | [place] [address] | | | | | | [phone] | | | | | | | | +--------+---------+ + + + documented as of this encounter Visit Diagnoses Not on filedocumented in this encounter"
--- OUTSIDE RECORDS SUMMARY | ~2019-03-11 | XMS | Encounter Summary ---
Demographics + + + | Address | [address] | | | [place] [address] | + + + | Home Phone | | + + + | Preferred Language | Unknown | + + + | Marital Status | | + + + | Advent Affiliation | 1077 | + + + | Race | Unknown | + + + | Ethnic Group | Unknown | + + + Author + + + | Author | [facility] | | | and [place] | + + + | Organization | [facility] | | | [...] [place] | | | | | [address] | | + + + + + Care Team Providers + +------+ + | Care Supervisor Air Conditioning Installer Name | Role | Phone | + +------+ + PCP | Unavailable | + +------+ + Encounter Details +--------+ + + + + | Date | Type | Department | Care Team | Description | +--------+ + + + + | 10/07/ | Hospital | [facility] | | | | 2009 - | Encounter | MED CTR CANCER | | | | | | CENTER [address] | | | | 10/25/ | | [place] | | | | 2009 | | [address] | | | | | | [phone] | | | +--------+ + + + [...] | | | | | | [place] [address] | | | | | | [phone] | | | | | | | | +--------+---------+ + + + documented as of this encounter Visit Diagnoses Not on filedocumented in this encounter"
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
--- OUTSIDE RECORDS SUMMARY | ~2019-03-11 | XMS | Encounter Summary ---
Demographics + + + | Address | [address] | | | [place] [address] | + + + | Home Phone | | + + + | Preferred Language | Unknown | + + + | Marital Status | | + + + | Taoist Affiliation | 1077 | + + + | Race | Unknown | + + + | Ethnic Group | Unknown | + + + Author + + + | Author | [facility] | | | and [place] | + + + | Organization | [facility] | | | [...] | [place] | | | | | [address] | | + + + + + Care Team Providers + +------+ + | Care Vertica Architect Name | Role | Phone | + +------+ + | No, Unknownpcp | PCP | | + +------+ + Encounter Details +--------+ + + + + | Date | Type | Department | Care Team | Description | +--------+ + + + + | 08/04/ | Hospital | [facility] | Emanuel Huang | | | 2012 - | Encounter | MED CTR CANCER | MD Scar [address] | | | | | [place] [address] | [address] [place] | | | 08/24/ | | [place], [place] | [place] [address] | | | 2012 | | [address] | [phone] | | | | | [phone] | | | +--------+ + + + [...] | Jonel Martin MD | | | 2019 | Visit | | [address] | | | | | | [address] [place], | | | | | | [place] [address] | | | | | | [phone] | | | | | | | [...] + | [facility] | [address] | [place] | [phone] | | [facility] | | [address] | | | - LABORATORY | | | | + + + + + | [facility] | [address] | [place] | | | [facility] | | [address] | | | - LABORATORY | | [...] + | [facility] | [address] | [place], [place] | [phone] | | [facility] | | [address] | | | - LABORATORY | | | | + + + + + | [facility] | [address] | [place], [place] | | | [facility] | | [address] | | | - LABORATORY | | | | + + + + + documented in this encounter Visit Diagnoses Not on filedocumented in this encounter"
--- OUTSIDE RECORDS SUMMARY | ~2019-03-11 | XMS | Encounter Summary ---
Demographics + + + | Address | [address] | | | [place] [address] | + + + | Home Phone | | + + + | Preferred Language | Unknown | + + + | Marital Status | | + + + | Restorationism Affiliation | 1077 | + + + | Race | Unknown | + + + | Ethnic Group | Unknown | + + + Author + + + | Author | [facility] | | | and [place] | + + + | Organization | [facility] | | | [...] [place] | | | | | [address] | | + + + + + Care Team Providers + +------+ + | Care English Teacher Name | Role | Phone | + +------+ + PCP | Unavailable | + +------+ + Encounter Details +--------+ + + + + | Date | Type | Department | Care Team | Description | +--------+ + + + + | 02/25/ | Hospital | [facility] | | | | 2008 - | Encounter | MED CTR CANCER | | | | | | CENTER [address] | | | | 03/27/ | | [place] | | | | 2008 | | [address] | | | | | | [phone] | | | +--------+ + + + [...] [place], | | | | | | [place] [address] | | | | | | [phone] | | | | | | | | +--------+---------+ + + + documented as of this encounter Visit Diagnoses Not on filedocumented in this encounter"
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
--- OUTSIDE RECORDS SUMMARY | ~2019-03-11 | XMS | Encounter Summary ---
Demographics + + + | Address | [address] | | | [place] [address] | + + + | Home Phone | | + + + | Preferred Language | Unknown | + + + | Marital Status | | + + + | Orthodoxy Affiliation | 1077 | + + + | Race | Unknown | + + + | Ethnic Group | Unknown | + + + Author + + + | Author | [facility] | | | and [place] | + + + | Organization | [facility] | | | [...] [place] | | | | | [address] | | + + + + + Care Team Providers + +------+ + | Care Clinical Research Management Associate Name | Role | Phone | + +------+ + PCP | Unavailable | + +------+ + Encounter Details +--------+ + + + + | Date | Type | Department | Care Team | Description | +--------+ + + + + | 01/23/ | Hospital | [facility] | [place], | | | 2008 - | Encounter | MED CTR MED ONC | Scar Diego MD [address] | | | | | [address] [place] | [address] [place] | | | 01/30/ | | [place] [address] | [place] [address] | | | 2007 | | [phone] | [phone] | | | | | | | [...] 2020 | Visit | | [address] [facility] | | | | | | [address] [place], | | | | | | [place] [address] | | | | | | [phone] | | | | | | | | +--------+---------+ + + + documented as of this encounter Visit Diagnoses Not on filedocumented in this encounter"
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
--- OUTSIDE RECORDS SUMMARY | ~2019-03-11 | XMS | Encounter Summary ---
Demographics + + + | Address | [address] | | | [place] [address] | + + + | Home Phone | | + + + | Preferred Language | Unknown | + + + | Marital Status | | + + + | Voodoo Affiliation | 1077 | + + + | Race | Unknown | + + + | Ethnic Group | Unknown | + + + Author + + + | Author | [facility] | | | and [place] | + + + | Organization | [facility] | | | and [...] [place] | | | | | [address] | | + + + + + Care Team Providers + +------+ + | Care Care Connector Name | Role | Phone | + +------+ + PCP | Unavailable | + +------+ + Encounter Details +--------+ + + + + | Date | Type | Department | Care Team | Description | +--------+ + + + + | 02/09/ | Hospital | [facility] | | | | 2010 - | Encounter | MED CTR CANCER | | | | | | CENTER [address] | | | | 02/24/ | | [place] | | | | 2010 | | [address] | | | | | | [phone] | | | +--------+ + + + [...] Baldomero York MD Radiation Oncology JOB #: [id number] EXT JOB #:[id number] cc: MD Henri Sagastume MD [address] [...] 2020 | Visit | | [address] [facility] | | | | | | [address] [place], | | | | | | [place] [address] | | | | | | [phone] | | | | | | | | +--------+---------+ + + + documented as of this encounter Visit Diagnoses Not on filedocumented in this encounter"
--- OUTSIDE RECORDS SUMMARY | ~2019-03-11 | XMS | Encounter Summary ---
Demographics + + + | Address | [address] | | | [place] [address] | + + + | Home Phone | | + + + | Preferred Language | Unknown | + + + | Marital Status | | + + + | Scientology Affiliation | 1077 | + + + | Race | Unknown | + + + | Ethnic Group | Unknown | + + + Author + + + | Author | [facility] | | | and [place] | + + + | Organization | [facility] | | | [...] [place] | | | | | [address] | | + + + + + Care Team Providers + +------+ + | Care Nutrition Specialist Name | Role | Phone | + +------+ + PCP | Unavailable | + +------+ + Encounter Details +--------+ + + + + | Date | Type | Department | Care Team | Description | +--------+ + + + + | 07/22/ | Hospital | [facility] | Amanda Lombardo | | | 2009 | Encounter | MED CTR EMERGENCY | MD [address] | | | | | [place] [address] | [facility], | | | | | [place], [place] | [place] [address] | | | | | [address] | [phone] | | | | | [phone] | | | +--------+ + + + [...] 2019 | Visit | | [address] [facility] | | | | | | [address] [place], | | | | | | [place] [address] | | | | | | [phone] | | | | | | | | +--------+---------+ + + + documented as of this encounter Visit Diagnoses Not on filedocumented in this encounter"
--- OUTSIDE RECORDS SUMMARY | ~2019-03-11 | XMS | Encounter Summary ---
Demographics + + + | Address | [address] | | | [place] [address] | + + + | Home Phone | | + + + | Preferred Language | Unknown | + + + | Marital Status | | + + + | Buddhist Affiliation | 1077 | + + + | Race | Unknown | + + + | Ethnic Group | Unknown | + + + Author + + + | Author | [facility] | | | and [place] | + + + | Organization | [facility] | | | [...] [place] | | | | | [address] | | + + + + + Care Team Providers + +------+ + | Care Construction Rep Name | Role | Phone | + +------+ + PCP | Unavailable | + +------+ + Encounter Details +--------+ + + + + | Date | Type | Department | Care Team | Description | +--------+ + + + + | 10/27/ | Hospital | [facility] | | | | 2008 - | Encounter | MED CTR CANCER | | | | | | CENTER [address] | | | | 11/24/ | | [place] | | | | 2008 | | [address] | | | | | | [phone] | | | +--------+ + + + [...] | | | | | | [place] [address] | | | | | | [phone] | | | | | | | | +--------+---------+ + + + documented as of this encounter Visit Diagnoses Not on filedocumented in this encounter"
--- OUTSIDE RECORDS SUMMARY | ~2019-03-11 | XMS | Encounter Summary ---
Demographics + + + | Address | [address] | | | [place] [address] | + + + | Home Phone | | + + + | Preferred Language | Unknown | + + + | Marital Status | | + + + | Evangelical Affiliation | 1077 | + + + [...] [place] | | | | | [address] | | + + + + + Care Team Providers + +------+ + | Care Trimmer Sorter Name | Role | Phone | + +------+ + PCP | Unavailable | + +------+ + Encounter Details +--------+ + + + + | Date | Type | Department | Care Team | Description | +--------+ + + + + | 01/23/ | Hospital | [facility] | [place], | | | 2008 - | Encounter | MED CTR MED ONC | Scar Diego MD [address] | | | | | [address] [place] | [address] [place] | | | 01/30/ | | [place] [address] | [place] [address] | | | 2007 | | [phone] | [phone] | | | | | | | [...] | Visit | | [address] [facility] | | | | | | [address] [place], | | | | | | [place] [address] | | | | | | [phone] | | | | | | | | +--------+---------+ + + + documented as of this encounter Visit Diagnoses Not on filedocumented in this encounter"
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
--- OUTSIDE RECORDS SUMMARY | ~2019-03-11 | XMS | Encounter Summary ---
Demographics + + + | Address | [address] | | | [place] [address] | + + + | Home Phone | | + + + | Preferred Language | Unknown | + + + | Marital Status | | + + + | Shinto Affiliation | 1077 | + + + [...] [place] | | | | | [address] | | + + + + + Care Team Providers + +------+ + | Care Shank Scourer Name | Role | Phone | + +------+ + PCP | Unavailable | + +------+ + Encounter Details +--------+ + + + + | Date | Type | Department | Care Team | Description | +--------+ + + + + | 07/01/ | Hospital | [facility] | | | | 2009 - | Encounter | MED CTR CANCER | | | | | | CENTER [address] | | | | 07/25/ | | [place] | | | | 2009 | | [address] | | | | | | [phone] | | | +--------+ + + + [...] [place], | | | | | | [place] [address] | | | | | | [phone] | | | | | | | | +--------+---------+ + + + documented as of this encounter Visit Diagnoses Not on filedocumented in this encounter"
--- OUTSIDE RECORDS SUMMARY | ~2019-03-11 | XMS | Encounter Summary ---
Demographics + + + | Address | [address] | | | [place] [address] | + + + | Home Phone | | + + + | Preferred Language | Unknown | + + + | Marital Status | | + + + | Lutheran Affiliation | 1077 | + + + | Race | Unknown | + + + | Ethnic Group | Unknown | + + + Author + + + | Author | [facility] | | | and [place] | + + + | Organization | [facility] | | | [...] [place] | | | | | [address] | | + + + + + Care Team Providers + +------+ + | Care Post Office Clerk Name | Role | Phone | + +------+ + PCP | Unavailable | + +------+ + Encounter Details +--------+ + + + + | Date | Type | Department | Care Team | Description | +--------+ + + + + | 10/27/ | Hospital | [facility] | | | | 2008 - | Encounter | MED CTR CANCER | | | | | | CENTER [address] | | | | 11/24/ | | [place] | | | | 2008 | | [address] | | | | | | [phone] | | | +--------+ + + + [...] [place], | | | | | | [place] [address] | | | | | | [phone] | | | | | | | | +--------+---------+ + + + documented as of this encounter Visit Diagnoses Not on filedocumented in this encounter"
--- OUTSIDE RECORDS SUMMARY | ~2019-03-11 | XMS | Encounter Summary ---
Demographics + + + | Address | [address] | | | [place] [address] | + + + | Home Phone | | + + + | Preferred Language | Unknown | + + + | Marital Status | | + + + | Latter-Day Affiliation | 1077 | + + + | Race | Unknown | + + + | Ethnic Group | Unknown | + + + Author + + + | Author | [facility] | | | and [place] | + + + | Organization | [facility] | | [...] [place] | | | | | [address] | | + + + + + Care Team Providers + +------+ + | Care Oracle Ebs Consultant Name | Role | Phone | + +------+ + PCP | Unavailable | + +------+ + Encounter Details +--------+ + + + + | Date | Type | Department | Care Team | Description | +--------+ + + + + | 03/10/ | Hospital | [facility] | | | | 2009 - | Encounter | MED CTR CANCER | | | | | | CENTER [address] | | | | 03/27/ | | [place] | | | | 2009 | | [address] | | | | | | [phone] | | | +--------+ + + + [...] [place], | | | | | | [place] [address] | | | | | | [phone] | | | | | | | | +--------+---------+ + + + documented as of this encounter Visit Diagnoses Not on filedocumented in this encounter"
--- OUTSIDE RECORDS SUMMARY | ~2019-03-11 | XMS | Encounter Summary ---
Demographics + + + | Address | [address] | | | [place] [address] | + + + | Home Phone | | + + + | Preferred Language | Unknown | + + + | Marital Status | | + + + | Roman Catholic Affiliation | 1077 | + + + | Race | Unknown | + + + | Ethnic Group | Unknown | + + + Author + + + | Author | [facility] | | | and [place] | + + + | Organization | [facility] | | [...] [place] | | | | | [address] | | + + + + + Care Team Providers + +------+ + | Care Wet Char Conveyor Tender Name | Role | Phone | [...] | | | | CENTER [address] | [address] [facility] | | | | | [place] | [place] [address] | | | | | [address] | [phone] | | | | | [phone] | | | +--------+ + + + [...] 2020 | Visit | | [address] [facility] | | | | | | [address] [place], | | | | | | [place] [address] | | | | | | [phone] | | | | | | | [...] | 1.010 | | | | | [place], | | | | | | [place], [...] | | | ER staff by the [facility] radiologist on October 10, 2013 at [...] acuity. There is posterior vertebral spondylosis at [id number] level, contributing to at | | least [...] COMPRESSION DEFORMITY OF THE INFERIOR | | [id number] BODY COMPARED WITH STUDIES FROM 2008, BUT OTHERWISE OF UNCERTAINACUITY.5. 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 | | | |Dictated and Signed by: Von Bush MD | | Electronically signed: 10/11/2013 12:19 PM | + + + +---------+ + + | Performing | Address | City/State/Zipcode | Phone Number | | Organization | | | | + +---------+ + + | MISCELLANEOUS LAB | | | [phone] | + +---------+ + + | MISCELANIOUS LAB | | | [phone] | + +---------+ + + Lipase (10/10/2013 [...] + | [facility] | [address] | [place] | [phone] | | [facility] | | [address] | | | - LABORATORY | | | | + + + + + | [facility] | [address] | [place], [place] | | | [facility] | | [address] | | | - LABORATORY | | [...] | | | FILTRATION | mL/min/1.73m2 | [facility] | | | MAURITIAN | RATE,ESTIMATED | | MEDICAL | | | | mL/min/1.51k2Cphl than | | CENTER - | | [...] | | | | | mg/dL | [facility] | | | | | | MEDICAL [...] + | [facility] | [address] | [place] | [phone] | | [facility] | | [address] | | | - LABORATORY | | | | + + + + + | [facility] | [address] | [place] | | | [facility] | | [address] | | | - LABORATORY | | [...] + | [facility] | [address] | [place], [place] | [phone] | | [facility] | | [address] | | | - LABORATORY | | | | + + + + + | [facility] | [address] | [place], [place] | | | [facility] | | [address] | | | - LABORATORY | | [...]
--- OUTSIDE RECORDS SUMMARY | ~2019-03-11 | XMS | Encounter Summary ---
Demographics + + + | Address | [address] | | | [place] [address] | + + + | Home Phone | | + + + | Preferred Language | Unknown | + + + | Marital Status | | + + + | Yarsanism Affiliation | 1077 | + + + | Race | Unknown | + + + | Ethnic Group | Unknown | + + + Author + + + | Author | [facility] | | | and [place] | + + + | Organization | [facility] | | | [...] [place] | | | | | [address] | | + + + + + Care Team Providers + +------+ + | Care Assembler Molded Frames Name | Role | Phone | + +------+ + PCP | Unavailable | + +------+ + Encounter Details +--------+ + + + + | Date | Type | Department | Care Team | Description | +--------+ + + + + | 01/19/ | Hospital | [facility] | Amanda Lombardo | | | 2008 | Encounter | MED CTR EMERGENCY | MD [address] | | | | | [place] [address] | [facility], | | | | | [place], [place] | [place] [address] | | | | | [address] | [phone] | | | | | [phone] | | | +--------+ + + + [...] 2019 | Visit | | [address] [facility] | | | | | | [address] [place], | | | | | | [place] [address] | | | | | | [phone] | | | | | | | | +--------+---------+ + + + documented as of this encounter Visit Diagnoses Not on filedocumented in this encounter"
--- OUTSIDE RECORDS SUMMARY | ~2019-03-11 | XMS | Encounter Summary ---
Demographics + + + | Address | [address] | | | [place] [address] | + + + | Home Phone [...] [place] | | | | | [address] | | + + + + + Care Team Providers + +------+ + | Care Kaiwhakahaere Name | Role | Phone | + +------+ + PCP | Unavailable | + +------+ + Encounter Details +--------+ + + + + | Date | Type | Department | Care Team | Description | +--------+ + + + + | 07/07/ | Hospital | [facility] | | | | 2010 - | Encounter | MED CTR CANCER | | | | | | CENTER [address] | | | | 07/25/ | | [place] | | | | 2010 | | [address] | | | | | | [phone] | | | +--------+ + + + [...] an anal dilat or. She and her scale expert tell me that it is becoming easier and easier for her to use it. PLAN: She will continue to see Dr. Azul. As noted, a full colonoscopy is planned [facility]. She had proctoscopy about 6 months ago. An appointment was made for her to return her e after that colonoscopy for a routine follow up visit. DICTATED BY: Jorden Shahid M.D. Radiation Oncology JOB #: [id number] EXT JOB #:[id number] EDITED: 07/10/2010 08:37 cc: Mckayla Styles MD, [...] | Visit | | [address] [facility] | | | | | | [address] [place], | | | | | | [place] [address] | | | | | | [phone] | | | | | | | [...] + | [facility] | [address] | [place] | [phone] | | [facility] | | [address] | | | - LABORATORY | | | | + + + + + | [facility] | [address] | [place] | | | [facility] | | [address] | | | - LABORATORY | | [...] [address] | [place] | [phone] | | [facility] | | [address] | | | - LABORATORY | | | | + + + + + | [facility] | [address] | [place] | | | [facility] | | [address] | | | - LABORATORY | | [...] [address] | [place] | [phone] | | [facility] | | [address] | | | - LABORATORY | | | | + + + + + | [address] | [address] | [place] | | | [facility] | | [address] | | | - LABORATORY | | | | + + + + + documented in this encounter Visit Diagnoses Not on filedocumented in this encounter"
--- OUTSIDE RECORDS SUMMARY | ~2019-03-11 | XMS | Encounter Summary ---
Demographics + + + | Address | [address] | | | [place] [address] | + + + | Home Phone | | + + + | Preferred Language | Unknown | + + + | Marital Status | | + + + | Uatsdin Affiliation | 1077 | + + + | Race | Unknown | + + + | Ethnic Group | Unknown | + + + Author + + + | Author | [facility] | | | and [place] | + + + | Organization | [facility] | | | and [...] [place] | | | | | [address] | | + + + + + Care Team Providers + +------+ + | Care Log Getter Name | Role | Phone | + +------+ + PCP | Unavailable | + +------+ + Encounter Details +--------+ + + + + | Date | Type | Department | Care Team | Description | +--------+ + + + + | 01/19/ | Hospital | [facility] | Amanda Lombardo | | | 2008 | Encounter | MED CTR EMERGENCY | MD [address] | | | | | [place] [address] | [facility], | | | | | [place], [place] | [place] [address] | | | | | [address] | [phone] | | | | | [phone] | | | +--------+ + + + [...] 2019 | Visit | | [address] [facility] | | | | | | [address] [place], | | | | | | [place] [address] | | | | | | [phone] | | | | | | | | +--------+---------+ + + + documented as of this encounter Visit Diagnoses Not on filedocumented in this encounter"
--- OUTSIDE RECORDS SUMMARY | ~2019-03-11 | XMS | Encounter Summary ---
Demographics + + + | Address | [address] | | | [place] [address] | + + + | Home Phone | | + + + | Preferred Language | Unknown | + + + | Marital Status | | + + + | Hoahaoism Affiliation | 1077 | + + + [...] [place] | | | | | [address] | | + + + + + Care Team Providers + +------+ + | Care Hardware Engineering Manager Name | Role | Phone | + +------+ + PCP | Unavailable | + +------+ + Encounter Details +--------+ + + + + | Date | Type | Department | Care Team | Description | +--------+ + + + + | 12/03/ | Hospital | [facility] | | | | 2007 - | Encounter | MED CTR CANCER | | | | | | CENTER [address] | | | | 12/25/ | | [place] | | | | 2007 | | [address] | | | | | | [phone] | | | +--------+ + + + [...] | | | | | | [place] [id number] | | | | | | [phone] | | | | | | | | +--------+---------+ + + + documented as of this encounter Visit Diagnoses Not on filedocumented in this encounter"
--- OUTSIDE RECORDS SUMMARY | ~2019-03-11 | XMS | Encounter Summary ---
Demographics + + + | Address | [address] | | | [place] [address] | + + + | Home Phone | | + + + | Preferred Language | Unknown | + + + | Marital Status | | + + + | Bahai Affiliation | 1077 | + + + | Race | Unknown | + + + | Ethnic Group | Unknown | + + + Author + + + | Author | [facility] | | | and [place] | + + + | Organization | [facility] | | [...] [place] | | | | | [address] | | + + + + + Care Team Providers + +------+ + | Care Gas Welder Name | Role | Phone | + +------+ + PCP | Unavailable | + +------+ + Encounter Details +--------+ + + + + | Date | Type | Department | Care Team | Description | +--------+ + + + + | 06/25/ | Hospital | [facility] | | | | 2008 - | Encounter | MED CTR CANCER | | | | | | CENTER [address] | | | | 07/25/ | | [place] | | | | 2008 | | [address] | | | | | | [phone] | | | +--------+ + + + [...] [place], | | | | | | [place] [address] | | | | | | [phone] | | | | | | | | +--------+---------+ + + + documented as of this encounter Visit Diagnoses Not on filedocumented in this encounter"
--- OUTSIDE RECORDS SUMMARY | ~2019-03-11 | XMS | Encounter Summary ---
Demographics + + + | Address | [address] | | | [place] [address] | + + + | Home Phone [...] | Author | [facility] | | | and [place] | + + + | Organization | [facility] | | [...] [place] | | | | | [address] | | + + + + + Care Team Providers + +------+ + | Care Vacuum System Tester Name | Role | Phone | + +------+ + PCP | Unavailable | + +------+ + Encounter Details +--------+ + + + + | Date | Type | Department | Care Team | Description | +--------+ + + + + | 12/28/ | Hospital | [facility] | [place], | | | 2008 - | Encounter | MED CTR GENERIC OP | Scar Diego MD [address] | | | | | [place] [place] [address] | [place] | | | 01/20/ | | [place], | [place] [address] | | | 2007 | | [place] [address] | [phone] | | | | | [phone] | | | +--------+ + + + [...] 2020 | Visit | | [address] [facility] | | | | | | [address] [place], | | | | | | [place] [address] | | | | | | [phone] | | | | | | | | +--------+---------+ + + + documented as of this encounter Visit Diagnoses Not on filedocumented in this encounter"
--- OUTSIDE RECORDS SUMMARY | ~2019-03-11 | XMS | Encounter Summary ---
Demographics + + + | Address | [address] | | | [place] [address] | + + + | Home Phone | | + + + | Preferred Language | Unknown | + + + | Marital Status | | + + + | Buddhism Affiliation | 1077 | + + + | Race | Unknown | + + + | Ethnic Group | Unknown | + + + Author + + + | Author | [facility] | | | and [place] | + + + | Organization | [facility] | | [...] [place] | | | | | [address] | | + + + + + Care Team Providers + +------+ + | Care Plate Driller Name | Role | Phone | + +------+ + PCP | Unavailable | + +------+ + Encounter Details +--------+ + + + + | Date | Type | Department | Care Team | Description | +--------+ + + + + | 01/01/ | Hospital | [facility] | | | | 2007 - | Encounter | MED CTR CANCER | | | | | | CENTER [address] | | | | 01/24/ | | [place] | | | | 2007 | | [address] | | | | | | [phone] | | | +--------+ + + + [...] [place], | | | | | | [place] [address] | | | | | | [phone] | | | | | | | | +--------+---------+ + + + documented as of this encounter Visit Diagnoses Not on filedocumented in this encounter"
--- OUTSIDE RECORDS SUMMARY | ~2019-03-11 | XMS | Encounter Summary ---
Demographics + + + | Address | [address] | | | [place] [address] | + + + | Home Phone | | + + + | Preferred Language | Unknown | + + + | Marital Status | | + + + | Yazidism Affiliation | 1077 | + + + [...] [place] | | | | | [address] | | + + + + + Care Team Providers + +------+ + | Care Front Window Cashier Name | Role | Phone | + +------+ + PCP | Unavailable | + +------+ + Encounter Details +--------+ + + + + | Date | Type | Department | Care Team | Description | +--------+ + + + + | 07/22/ | Hospital | [facility] | Amanda Lombardo | | | 2009 | Encounter | MED CTR EMERGENCY | MD [address] | | | | | [place] [address] | [facility], | | | | | [place], [place] | [place] [address] | | | | | [address] | [phone] | | | | | [phone] | | | +--------+ + + + [...] 2019 | Visit | | [address] [facility] | | | | | | [address] [place], | | | | | | [place] [address] | | | | | | [phone] | | | | | | | | +--------+---------+ + + + documented as of this encounter Visit Diagnoses Not on filedocumented in this encounter"
--- OUTSIDE RECORDS SUMMARY | ~2019-03-11 | XMS | Encounter Summary ---
Demographics + + + | Address | [address] | | | [place] [address] | + + + | Home Phone | | + + + | Preferred Language | Unknown | + + + | Marital Status | | + + + | Holiness Affiliation | 1077 | + + + [...] [place] | | | | | [address] | | + + + + + Care Team Providers + +------+ + | Care Safety Deposit Clerk Name | Role | Phone | + +------+ + PCP | Unavailable | + +------+ + Encounter Details +--------+ + + + + | Date | Type | Department | Care Team | Description | +--------+ + + + + | 02/09/ | Hospital | [facility] | | | | 2010 - | Encounter | [facility] | | | | | | CENTER [address] | | | | 02/24/ | | [place] | | | | 2010 | | [address] | | | | | | [phone] | | | +--------+ + + + [...] Baldomero York MD Radiation Oncology JOB #: [id number] EXT JOB #:[id number] cc: MD Henri Sagastume MD S. Maynard [...] 2020 | Visit | | [address] [facility] | | | | | | [address], | | | | | | [place] [address] | | | | | | [phone] | | | | | | | | +--------+---------+ + + + documented as of this encounter Visit Diagnoses Not on filedocumented in this encounter"
[~2019-03-11 16:08] MED LIST changes: +DICYCLOMINE HCL10 MG PO
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
[2019-03-11] MEDS ORDERED: FAMOTIDINE20 MG PO (18:54)
[2019-03-11] MEDS ORDERED: NORCO 5-325 TA1 EACH PO (19:57)
== END 2019-03-11 20:34 | disposition home or self-care (01) ==
LOC: ED 16:08
DX: S02.2XXA Fracture of nasal bones, initial encounter for closed fracture (principal); I10 Essential (primary) hypertension; Z88.8 Allergy status to other drugs, medicaments and biological substances; Z88.6 Allergy status to analgesic agent; Z79.899 Other long term (current) drug therapy; V89.2XXA Person injured in unspecified motor-vehicle accident, traffic, initial encounter; Z85.048 Personal history of other malignant neoplasm of rectum, rectosigmoid junction, and anus
CPT/HCPCS: 99283

== ENCOUNTER 2019-03-16 12:36 | Emergency (ER) | payer MEDICARE, OTHER ==
[~2019-03-16] VITALS: Ht 157.5 cm; Wt 58.9 kg
[~2019-03-16 12:36] MED LIST changes: +FAMOTIDINE20 MG PO
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
== END 2019-03-16 14:54 | disposition home or self-care (01) ==
LOC: ED 12:36
DX: S00.83XA Contusion of other part of head, initial encounter (principal); V89.2XXA Person injured in unspecified motor-vehicle accident, traffic, initial encounter; I10 Essential (primary) hypertension; Z88.8 Allergy status to other drugs, medicaments and biological substances; Z88.6 Allergy status to analgesic agent; Z79.899 Other long term (current) drug therapy
CPT/HCPCS: 99283

== ENCOUNTER 2019-05-20 16:44 | Emergency (ER) | payer MEDICARE, OTHER ==
[~2019-05-20] VITALS: Ht 157.5 cm; Wt 58.9 kg
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
== END 2019-05-20 17:19 | disposition left against medical advice (07) ==
LOC: ED 16:44
DX: Z53.21 Procedure and treatment not carried out due to patient leaving prior to being seen by health care provider (principal)

== ENCOUNTER 2019-09-04 16:10 | Emergency (ER) | payer MEDICARE, OTHER ==
[~2019-09-04] VITALS: Ht 157.5 cm; Wt 58.9 kg
--- OUTSIDE RECORDS SUMMARY | ~2019-09-04 | XMS | Encounter Summary ---
Demographics + + + | Address | [address] | | | [place] [address] | + + + | Home Phone | | + + + | Preferred Language | Unknown | + + + | Marital Status | | + + + | Mormonism Affiliation | 1077 | + + + | Race | Unknown | + + + | Ethnic Group | Unknown | + + + Author + + + | Author | [facility] | | | and [place] | + + + | Organization | [facility] | | | and [...] [place] | | | | | [address] | | + + + + + Care Team Providers + +------+ + | Care Movie Critic Name | Role | Phone | + +------+ + PCP | Unavailable | + +------+ + Encounter Details +--------+ + + + + | Date | Type | Department | Care Team | Description | +--------+ + + + + | 06/17/ | Hospital | [facility] | | | | 2008 - | Encounter | MED CTR CANCER | | | | | | CENTER [address] | | | | 06/24/ | | [place] | | | | 2008 | | [address] | | | | | | [phone] | | | +--------+ + + + [...] on file | | + + + documented as of this encounter Plan of Treatment Not on filedocumented as of this encounter Visit Diagnoses Not on filedocumented in this encounter"
--- OUTSIDE RECORDS SUMMARY | ~2019-09-04 | XMS | Encounter Summary ---
Demographics + + + | Address | [address] | | | [place] [address] | + + + | Home Phone | | + + + | Preferred Language | Unknown | + + + | Marital Status | | + + + | Protestant Affiliation | 1077 | + + + | Race | Unknown | + + + | Ethnic Group | Unknown | + + + Author + + + | Author | [facility] | | | and [place] | + + + | Organization | [facility] | | | [...] [place] | | | | | [address] | | + + + + + Care Team Providers + +------+ + | Care Automatic Quilling Machine Operator Name | Role | Phone | + +------+ + PCP | Unavailable | + +------+ + Encounter Details +--------+ + + + + | Date | Type | Department | Care Team | Description | +--------+ + + + + | 07/01/ | Hospital | [facility] | | | | 2009 - | Encounter | MED CTR CANC[facility] | | | | | | CENTER [address] | | | | 07/25/ | | [place] | | | | 2009 | | [address] | | | | | | [phone] | | | +--------+ + + + [...]
--- OUTSIDE RECORDS SUMMARY | ~2019-09-04 | XMS | Encounter Summary ---
Demographics + + + | Address | [address] | | | [place] [address] | + + + | Home Phone | | + + + | Preferred Language | Unknown | + + + | Marital Status | | + + + | Congregational Affiliation | 1077 | + + + | Race | Unknown | + + + | Ethnic Group | Unknown | + + + Author + + + | Author | [facility] | | | and [place] | + + + | Organization | [facility] | | | [...] [place] | | | | | [address] | | + + + + + Care Team Providers + +------+ + | Care Core Stacker Name | Role | Phone | + +------+ + PCP | Unavailable | + +------+ + Encounter Details +--------+ + + + + | Date | Type | Department | Care Team | Description | +--------+ + + + + | 01/23/ | Hospital | [facility] | [place], | | | 2008 - | Encounter | MED CTR MED ONC | Scar Diego MD [address] | | | | | [address] | [address] [place] | | | 01/30/ | | [place] [address] | [place] [address] | | | 2007 | | [phone] | [phone] | | | | | | | [...]
--- OUTSIDE RECORDS SUMMARY | ~2019-09-04 | XMS | Encounter Summary ---
Demographics + + + | Address | [address] | | | [place] [address] | + + + | Home Phone | | + + + | Preferred Language | Unknown | + + + | Marital Status | | + + + | Sabianism Affiliation | 1077 | + + + | Race | Unknown | + + + | Ethnic Group | Unknown | + + + Author + + + | Author | [facility] | | | and [place] | + + + | Organization | [facility] | | | and [...] [place] | | | | | [address] | | + + + + + Care Team Providers + +------+ + | Care Weapons Officer Naval Activity Name | Role | Phone | + +------+ + PCP | Unavailable | + +------+ + Encounter Details +--------+ + + + + | Date | Type | Department | Care Team | Description | +--------+ + + + + | 07/07/ | Hospital | [facility] | | | | 2010 - | Encounter | MED CTR CANCER | | | | | | CENTER [address] | | | | 07/25/ | | [place] | | | | 2010 | | [address] | | | | | | [phone] | | | +--------+ + + + [...] documented as of this encounter Progress Notes Jorden Shahid MD - 07/07/2010 2:25 AM PDTDATE: 07/07/2010 HISTORY OF PRESENT ILLNESS: Ms. Love comes in for a routine follow up visit following viviana mo-radiation for an anal carcinoma. Our records indicate that she was last here in September o f last year, although she insists it was in June. When seen in September a hand written note wa s done. It appears that she had a normal chemistry panel and CBC at that time. Dr. Qureshi ga ve the patient a rectal dilator. She was to have colonoscopy in December. She tells me that she had a proctoscopy done in December by Dr. Burton and that it was normal. The patient has a very tight anal sphincter and it is very difficult to perform DREs. She recently saw Dr. Azul. She had not been using the dilator provided by Dr. Qureshi. Dr. Azul gave her a n ew smaller softer dilator, which she has been using for 1 week only. She made it very clear that Dr. Azul is planning a full colonoscopy in December of this year. Today the patient has had laboratory studies. A chemistry panel is normal. The patient had a CBC done today, which is also normal. PHYSICAL EXAMINATION GENERAL: This includes a very pleasant female in no distress. ABDOMEN: Soft. There is no groin adenopathy. RECTAL: The patient's external anus appears completely normal. I attempted to perform a D RE. The patient's anus is very tight with what seems to be an annular very smooth scar. It was painful for her and I did not persist. As noted she has just begun to use an anal dilat or. She and her fire hazard inspector tell me that it is becoming easier and easier for her to use it. PLAN: She will continue to see Dr. Azul. As noted, a full colonoscopy is planned in [facility]. She had proctoscopy about 6 months ago. An appointment was made for her to return her e after that colonoscopy for a routine follow up visit. DICTATED BY: Jorden Shahid M.D. Radiation Oncology JOB #: [id number] EXT JOB #:[id number] EDITED: 07/10/2010 08:37 cc: Mckayla Styles MD, PHD <Electronically Signed by Jorden Shahid MD> 07/13/10 1626 documented in this encounter Plan of Treatment Not on filedocumented as of this encounter Procedures + +--------+ + + + | Procedure Name | Priori | Date/Time | Associated Diagnosis | Comments | | | ty | | | | + +--------+ + + + | CBC WITH | Routin | 07/07/2010 | | Results for this | | DIFFERENTIAL | e | 10:07 AM | | procedure are in the | | | | PDT | | results section. | + +--------+ + + + | LACTATE | Routin | 07/07/2010 | | Results for this | | DEHYDROGENASE | e | 10:07 AM | | procedure are in the | | | | PDT | | results section. | + +--------+ + + + | COMPREHENSIVE | Routin | 07/07/2010 | | Results for this | | METABOLIC PANEL | e | 10:07 AM | | procedure are in the | | | | PDT | | results section. | + +--------+ + + + documented in this encounter Results Comprehensive Metabolic Panel (07/07/2010 10:07 AM PDT) + + + + + + | Component | Value | Ref Range | Performed | Pathologist | | | | | At | Signature | + + + + + + | Glucose | 95 | 70 - 109 mg/dL | [facility] | | | | | | [facility] | | | | | | [facility]ICAL | | | | | | CENTER - | | | | | | LABORATORY | | + + + + + + | Calcium | 9.2 | 8.3 - 10.5 | [facility] | | | | | mg/dL | [facility] | | | | | | MEDICAL | | | | | | CENTER - | | | | | | LABORATORY | | + + + + + + | Alkaline | 64 | 40 - 110 IU/L | [facility] | | | Phosphatase | | | [facility] | | | | | | MEDICAL | | | | | | CENTER - | | | | | | LABORATORY | | + + + + + + | AST | 19 | 10 - 42 IU/L | [facility] [...] + + + + | Bilirubin | 1.0 | 0.2 - 1.0 mg/dL | [facility] | | | Total | | | [facility] | | | | | | MEDICAL | | | | | | CENTER - | | | | | | LABORATORY | | + + + + + + | Total | 6.3 | 6.0 - 7.8 gm/dL | [facility] | | | Protein | | | [facility] | | | | | | MEDICAL | | | | | | CENTER - | | | | | | LABORATORY | | + + + + + + | Albumin | 3.7 | 3.2 - 5.0 gm/dL | [facility] [...] + + | Creatinine | 0.75 | 0.60 - 1.30 | [facility] | [...] | GFR | -Americans, | | [facility] | | | | please multiply the | | MEDICAL | | | | result by 1.210 | | CENTER - | | | | This is an estimated | | LABORATORY | | | | GFR and is based on | | | | | | a standard body | | | | | | mass and serum | | | | | | creatinine | | | | + + + + + + | BUN/Creatin | 14.7 | 12 - 20 | [facility] | | | ine Ratio | | | [facility] | | | | | | MEDICAL | | | | | | CENTER - | | | | | | LABORATORY | | + + + + + + | Na | 139 | 136 - 149 mEq/L | [facility] | | | | | | [facility] | | | | | | MEDICAL | | | | | | CENTER - | | | | | | LABORATORY | | + + + + + + | K | 4.4 | 3.5 - 5.1 mEq/l | [facility] | | | | | | [facility] | | | | | | MEDICAL | | | | | | CENTER - | | | | | | LABORATORY | | + + + + + + | Cl | 106 | 98 - 109 mEq/l | [facility] [...] + + + | Anion Gap | 10.4 | 6.0 - 17.0 | [facility] | | | | | [...] [address] | [place] | [phone] | | [facility] | | [address] | | | - LABORATORY | | | | + + + + + | [facility] | [address] | [place] | | | [facility] | | [address], [facility] | | | - LABORATORY | | | | + + + + + Lactate Dehydrogenase (07/07/2010 10:07 AM PDT) + +-------+ + + + | Component | Value | Ref Range | Performed | Pathologist | | | | | At | Signature | + +-------+ + + + | LDH TOTAL | 136 | 91 - 180 IU/L | [facility] | | | | | | [facility] | | | | | | MEDICAL | | | | | | CENTER - | | | | | | LABORATORY | | + +-------+ + + + + + | Specimen | + + | | + + + + + + + | Performing | Address | City/State/Zipcode | Phone Number | | Organization | | | | + + + + + | [facility] | [address] | [place], [place] | [phone] | | [facility] | | [address] | | | - LABORATORY | | | | + + + + + | [facility] | [address] | [place], [place] | | | [facility] | | [address], [facility] | | | - LABORATORY | | | | + + + + + CBC with Differential (07/07/2010 10:07 AM PDT) + + + + + + | Component | Value | Ref Range | Performed | Pathologist | | | | | At | Signature | + + + + + + | White Blood | 6.3 | 4.0 - 11.0 K/uL | [facility] | | | Cells | | | [facility] | | | | | | [facility]ICAL | | | | | | CENTER - | | | | | | LABORATORY | | + + + + + + | Red Blood | 4.31 | 3.70 - 5.20 | [facility] | | | Cells | | M/uL | [facility] | | | | | | MEDICAL | | | | | | CENTER - | | | | | | LABORATORY | | + + + + + + | Hemoglobin | 13.1 | 11.5 - 16.0 | [facility] | | | | | gm/dL | [facility] | | | | | | MEDICAL | | | | | | CENTER - | | | | | | LABORATORY | | + + + + + + | Hematocrit | 39.4 | 34.0 - 47.0 % | [facility] | | | | | | [facility] | | | | | | MEDICAL | | | | | | CENTER - | | | | | | LABORATORY | | + + + + + + | MCV | 91.4 | 83.0 - 101.0 fL | [facility] | | | | | | [facility] | | | | | | MEDICAL | | | | | | CENTER - | | | | | | LABORATORY | | + + + + + + | MCH | 30.4 | 28.0 - 35.0 pg | [facility] | | | | | | [facility] | | | | | | MEDICAL | | | | | | CENTER - | | | | | | LABORATORY | | + + + + + + | MCHC | 33.3 | 32.0 - 36.0 | [facility] | | | | | g/dL | [facility] | | | | | | MEDICAL | | | | | | CENTER - | | | | | | LABORATORY | | + + + + + + | RDW-CV | 14.6 | <15.0 % | [facility] | | | | | | [facility] | | | | | | MEDICAL | | | | | | CENTER - | | | | | | LABORATORY | | + + + + + + | Platelet | 158 | 140 - 440 K/uL | [facility] | | | Count | | | [facility] | | | | | | MEDICAL | | | | | | CENTER - | | | | | | LABORATORY | | + + + + + + | % | 76.6 (H) | 45 - 75 % | [facility] | | | Neutrophils | | | [facility] | | | | | | MEDICAL | | | | | | CENTER - | | | | | | LABORATORY | | + + + + + + | % | 13.4 (L) | 20 - 45 % | [facility] | | | Lymphocytes | | | [facility] | | | | | | MEDICAL | | | | | | CENTER - | | | | | | LABORATORY | | + + + + + + | % Monocytes | 8.0 | 4 - 12 % | [facility] | | | | | | [facility] | | | | | | MEDICAL | | | | | | CENTER - | | | | | | LABORATORY | | + + + + + + | % | 1.7 | 0 - 5 % | [facility] | | | Eosinophils | | | [facility] | | | | | | MEDICAL | | | | | | CENTER - | | | | | | LABORATORY | | + + + + + + | % Basophils | 0.3 | 0 - 1 % | [facility] | | | | | | [facility] | | | | | | MEDICAL | | | | | | CENTER - | | | | | | LABORATORY | | + + + + + + | Absolute | 4.9 | 1.5 - 6.6 K/uL | [facility] | | | Neutrophils | | | [facility] | | | | | | MEDICAL | | | | | | CENTER - | | | | | | LABORATORY | | + + + + + + | Absolute | 0.9 | 0.6 - 3.2 K/uL | [facility] | | | Lymphocytes | | | [facility] | | | | | | MEDICAL | | | | | | CENTER - | | | | | | LABORATORY | | + + + + + + | Absolute | 0.5 | 0.0 - 1.0 K/uL | [facility] | | | Monocytes | | | [facility] | | | | | | MEDICAL | | | | | | CENTER - | | | | | | LABORATORY | | + + + + + + | Absolute | 0.1 | 0.0 - 0.4 K/uL | [facility] | | | Eosinophils | | | [facility] | | | | | | MEDICAL | | | | | | CENTER - | | | | | | LABORATORY | | + + + + + + | Absolute | 0.0 | 0.0 - 0.1 K/uL | [facility] | | | Basophils | | | [facility] | | [...] + | [facility] | [address] | [place], [place] | [phone] | | [facility] | | [address] | | | - LABORATORY | | | | + + + + + | [facility] | [address] | [place], [place] | | | [facility] | | [id number] [place] [address] | | | - LABORATORY | | | | + + + + + documented in this encounter Visit Diagnoses Not on filedocumented in this encounter"
--- OUTSIDE RECORDS SUMMARY | ~2019-09-04 | XMS | Encounter Summary ---
Demographics + + + | Address | [address] | | | [place] [address] | + + + | Home Phone | | + + + | Preferred Language | Unknown | + + + | Marital Status | | + + + | Temple Affiliation | 1077 | + + + | Race | Unknown | + + + | Ethnic Group | Unknown | + + + Author + + + | Author | [facility] | | | and [place] | + + + | Organization | [facility] | | [...] [place] | | | | | [address] | | + + + + + Care Team Providers + +------+ + | Care Traffic Enumerator Name | Role | Phone | + +------+ + PCP | Unavailable | + +------+ + Encounter Details +--------+ + + + + | Date | Type | Department | Care Team | Description | +--------+ + + + + | 12/28/ | Hospital | [facility] | [place], | | | 2008 - | Encounter | MED CTR GENERIC OP | Scar Diego MD [address] | | | | | [address] | [place] | | | 01/20/ | | [place], | [place] [address] | | | 2007 | | [place] [address] | [phone] | | | | | [phone] | | | +--------+ + + + [...]
--- OUTSIDE RECORDS SUMMARY | ~2019-09-04 | XMS | Encounter Summary ---
Demographics + + + | Address | [address] | | | [place] [address] | + + + | Home Phone | | + + + | Preferred Language | Unknown | + + + | Marital Status | | + + + | Baptism Affiliation | 1077 | + + + | Race | Unknown | + + + | Ethnic Group | Unknown | + + + Author + + + | Author | [facility] | | | and [place] | + + + | Organization | [facility] | | | [...] [place] | | | | | [address] | | + + + + + Care Team Providers + +------+ + | Care Rag Grader Name | Role | Phone | + +------+ + PCP | Unavailable | + +------+ + Encounter Details +--------+ + + + + | Date | Type | Department | Care Team | Description | +--------+ + + + + | 02/25/ | Hospital | [facility] | | | | 2008 - | Encounter | MED CTR CANCER | | | | | | CENTER [address] | | | | 03/27/ | | [place] | | | | 2008 | | [address] | | | | | | [phone] | | | +--------+ + + + [...]
--- OUTSIDE RECORDS SUMMARY | ~2019-09-04 | XMS | Encounter Summary ---
Demographics + + + | Address | [address] | | | [place] [address] | + + + | Home Phone | | + + + | Preferred Language | Unknown | + + + | Marital Status | | + + + | Jehovah'S Witness Affiliation | 1077 | + + + | Race | Unknown | + + + | Ethnic Group | Unknown | + + + Author + + + | Author | [facility] | | | and [place] | + + + | Organization | [facility] | | | and [...] [place] | | | | | [address] | | + + + + + Care Team Providers + +------+ + | Care Public Transit Trolley Driver Name | Role | Phone | + +------+ + PCP | Unavailable | + +------+ + Encounter Details +--------+ + + + + | Date | Type | Department | Care Team | Description | +--------+ + + + + | 12/03/ | Hospital | [facility] | | | | 2007 - | Encounter | MED CTR CANCER | | | | | | CENTER [address] | | | | 12/25/ | | [place] | | | | 2007 | | [address] | | | | | | [phone] | | | +--------+ + + + [...]
--- OUTSIDE RECORDS SUMMARY | ~2019-09-04 | XMS | Encounter Summary ---
Demographics + + + | Address | [address] | | | [place] [address] | + + + | Home Phone | | + + + | Preferred Language | Unknown | + + + | Marital Status | | + + + | Church Affiliation | 1077 | + + + [...] [place] | | | | | [address] | | + + + + + Care Team Providers + +------+ + | Care Liner Machine Operator Name | Role | Phone | + +------+ + PCP | Unavailable | + +------+ + Encounter Details +--------+ + + + + | Date | Type | Department | Care Team | Description | +--------+ + + + + | 12/10/ | Hospital | [facility] | [place], | | | 2008 - | Encounter | MED CTR OP INFUSION | Scar Diego MD [address] | | | | | [address] | [place] | | | 12/25/ | | [place], [place] | [place] [address] | | | 2007 | | [address] | [phone] | | | | | [phone] | | | +--------+ + + + [...]
--- OUTSIDE RECORDS SUMMARY | ~2019-09-04 | XMS | Encounter Summary ---
Demographics + + + | Address | [address] | | | [place] [address] | + + + | Home Phone | | + + + | Preferred Language | Unknown | + + + | Marital Status | | + + + | Christian Affiliation | 1077 | + + + | Race | Unknown | + + + | Ethnic Group | Unknown | + + + Author + + + | Author | [facility] | | | and [place] | + + + | Organization | [facility] | | | and [...] | [place] | | | | | [address] | | + + + + + Care Team Providers + +------+ + | Care Donor Specialist Name | Role | Phone | + +------+ + | No, Unknownpcp | PCP | | + +------+ + Encounter Details +--------+ + + + + | Date | Type | Department | Care Team | Description | +--------+ + + + + | 08/04/ | Hospital | [facility] | Emanuel Huang | | | 2012 - | Encounter | MED CTR CANCER | MD Scar [address] | | | | | [place] [address] | [address] | | | 08/24/ | | [place], [place] | [place] [address] | | | 2012 | | [address] | [phone] | | | | | [phone] | | | +--------+ + + + [...] 50 | 29 - 89 mg/dL | [facility] | | | | | | [facility] | | | | | | MEDICAL | | | | | | CENTER - | | | | | | LABORATORY | | + + + + + + | LDL, | 85 | <130 mg/dL | [facility] | | | Calculated | | | [facility] | | | | | | MEDICAL | | | | | | CENTER - | | | | | | LABORATORY | | + + + + + + | Chol/HDL | 3.1Comment: | | [facility] | | | Ratio | | | [facility] | | [...] [address] | [place] | [phone] | | [facility] | | [address] | | | - LABORATORY | | | | + + + + + | [facility] | [address] | [place] | | | [facility] | | [address] | | | - LABORATORY | | | | + + + + + Comprehensive Metabolic Panel (08/04/2012 9:16 AM PDT) + + + + + + | Component | Value | Ref Range | Performed | Pathologist | | | | | At | Signature | + + + + + + | Glucose | 108 | 70 - 109 mg/dL | [facility] | | | | | | [facility] | | | | | | [...] 10 | 7 - 18 mg/dL | [facility] | | | | | | [facility] | | | | | | MEDICAL | | | | | | CENTER - | | | | | | LABORATORY | | + + + + + + | Creatinine | 0.76 | 0.60 - 1.30 | [facility] | | | | | mg/dL | [facility] | | | | | | MEDICAL | | | | | | CENTER - | | | | | | LABORATORY | | + + + + + + | Estimated | >60Comment: For | >60 mL/min/A | [facility] | | | GFR | -Americans, | [...] | 13.2 | 12 - 20 | [facility] | [...] + | [facility] | [address] | [place], [place] | [phone] | | [facility] | | [address] | | | - LABORATORY | | | | + + + + + | [facility] | [address] | [place], [place] | | | [facility] | | [phone] [place] [address] | | | - LABORATORY | | | | + + + + + documented in this encounter Visit Diagnoses Not on filedocumented in this encounter"
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
--- OUTSIDE RECORDS SUMMARY | ~2019-09-04 | XMS | Encounter Summary ---
Demographics + + + | Address | [address] | | | [place] [address] | + + + | Home Phone | | + + + | Preferred Language | Unknown | + + + | Marital Status | | + + + | Rastafarian Affiliation | 1077 | + + + | Race | Unknown | + + + | Ethnic Group | Unknown | + + + Author + + + | Author | [facility] | | | and [place] | + + + | Organization | [facility] | | [...] [place] | | | | | [address] | | + + + + + Care Team Providers + +------+ + | Care Hose Coupling Joiner Name | Role | Phone | + +------+ + PCP | Unavailable | + +------+ + Encounter Details +--------+ + + + + | Date | Type | Department | Care Team | Description | +--------+ + + + + | 03/10/ | Hospital | [facility] | | | | 2009 - | Encounter | MED CTR CANCER | | | | | | CENTER [address] | | | | 03/27/ | | [place] | | | | 2009 | | [address] | | | | | | [phone] | | | +--------+ + + + [...]
--- OUTSIDE RECORDS SUMMARY | ~2019-09-04 | XMS | Encounter Summary ---
Demographics + + + | Address | [address] | | | [place] [address] | + + + | Home Phone | | + + + | Preferred Language | Unknown | + + + | Marital Status | | + + + | Temple Affiliation | 1077 | + + + | Race | Unknown | + + + | Ethnic Group | Unknown | + + + Author + + + | Author | [facility] | | | and [place] | + + + | Organization | [facility] | | | [...] [place] | | | | | [address] | | + + + + + Care Team Providers + +------+ + | Care Investment Executive Name | Role | Phone | + +------+ + PCP | Unavailable | + +------+ + Encounter Details +--------+ + + + + | Date | Type | Department | Care Team | Description | +--------+ + + + + | 07/22/ | Hospital | [facility] | Amanda Lombardo | | | 2009 | Encounter | MED CTR EMERGENCY | MD Judd [address] | | | | | [place] [address] | [facility], | | | | | [place], [place] | [place] [address] | | | | | [address] | [phone] | | | | | [phone] | | | +--------+ + + + [...]
--- OUTSIDE RECORDS SUMMARY | ~2019-09-04 | XMS | Encounter Summary ---
Demographics + + + | Address | [address] | | | [place] [address] | + + + | Home Phone | | + + + | Preferred Language | Unknown | + + + | Marital Status | | + + + | Amish Affiliation | 1077 | + + + | Race | Unknown | + + + | Ethnic Group | Unknown | + + + Author + + + | Author | [facility] | | | and [place] | + + + | Organization | [facility] | | [...] [place] | | | | | [address] | | + + + + + Care Team Providers + +------+ + | Care Filter Tank Tender Helper Head Name | Role | Phone | + +------+ + PCP | Unavailable | + +------+ + Encounter Details +--------+ + + + + | Date | Type | Department | Care Team | Description | +--------+ + + + + | 08/14/ | Hospital | [facility] | Emanuel Huang | | | 2012 - | Encounter | MED CTR CANCER | MD Scar [address] | | | | | [place] [address] | [address] [place] | | | 08/24/ | | [place], [place] | [place] [address] | | | 2011 | | [address] | [phone] | | | | | [phone] | | | +--------+ + + + [...] in 01/2008. [facility]. Mariama states that she [...] Baldomero York MD Radiation Oncology JOB #: [id number] EXT JOB #:[id number] cc: MD Emanuel Sagastume MD Dr. Andrew Bower [place] <Electronically Signed by Baldomero York MD> 09/02/11 [...] + | [facility] | [address] | [place] | [phone] | | [facility] | | [address] | | | - LABORATORY | | | | + + + + + | [facility] | [address] | [place] | | | [facility] | | [address], [facility] | | | - LABORATORY | [...] 94 | 70 - 109 mg/dL | [facility] | | | | | | [facility] [...] | 0.83 | 0.60 - 1.30 | [facility] | [...] + | [facility] | [address] | [place] | [phone] | | [facility] | | [address] | | | - LABORATORY | | | | + + + + + | [facility] | [address] | [place] | | | [facility] | | [address] [place] [address] | | | - LABORATORY | | | | + + + + + documented in this encounter Visit Diagnoses Not on filedocumented in this encounter"
--- OUTSIDE RECORDS SUMMARY | ~2019-09-04 | XMS | Encounter Summary ---
Demographics + + + | Address | [address] | | | [place] [address] | + + + | Home Phone [...] + + | Author | [facility] | | | and [place] | + + + | Organization | [facility] | | | [...] [place] | | | | | [address] | | + + + + + Care Team Providers + +------+ + | Care Box Press Operator Name | Role | Phone | [...] | | | | CENTER [address] | [facility] | | | | | [place] | [place] [address] | | | | | [address] | [phone] | | | | | [phone] | | | +--------+ + + + [...] documented as of this encounter ED Notes Armin Berger MD - 10/10/2013 7:43 PM PDTFormatting of this note might be differen t from the original. [facility] Mariama Love Emergency Department Encounter Note [address] [place] [id number] PCP:John Del Cid [phone] eMERGENCY dEPARTMENT eNCOUnter CHIEF COMPLAINT Chief Complaint Patient presents with Hernia left lower quad hernia pain HPI Mariama Love is a 83 y.o. female who presents by private vehicle with left abdomen rosey n and distention. I saw her last night for similar complaints. At that time her symptoms h ad resolved and I did an x-ray which showed the splenic flexure colon in that area and suspe cted she had gas distention of the intestine. I could not see evidence of a hernia at that time. She returns tonight because once again after eating dinner she had onset of swelling with a hard mass in the left abdomen and this time she had pain and nausea associated with i t. The hardness and swelling are gone, as is the nausea, but she still has some pain althou gh she says it's not nearly as severe. She denies fever or chills. She says it's a little hard for her to urinate. PAST MEDICAL HISTORY Past Medical History Diagnosis Date Hypertension Anal cancer (HCC) Back pain H/O: S/P cholecystectomy SURGICAL HISTORY Past Surgical History Procedure Date Appendectomy Colon surgery Tonsillectomy Abdomen surgery CURRENT MEDICATIONS Previous Medications ATENOLOL (TENORMIN PO) Take 1/2 tablet by mouth 3 times a week CALCIUM CARBONATE-VITAMIN D (CALCIUM 600 + D PO) Take 1/2 tablet by mouth 2 times daily before meals CHONDROITIN SULFATE PO Take 500 mg by mouth Daily. GLUCOSAMINE SULFATE 1000 MG TABS Take 1,000 mg by mouth Daily. HYDROCODONE-ACETAMINOPHEN (LORTAB) 7.5-500 MG PER TABLET Take 1 tablet by mouth as need ed. MULTIPLE VITAMINS-MINERALS (MULTIVITAMIN PO) Take 1 each by mouth Daily. OMEPRAZOLE (PRILOSEC) 20 MG CAPSULE Take 20 mg by mouth Daily. POTASSIUM CHLORIDE (KLOR-CON 10 PO) Take 10 mEq by mouth Three times a week. PRAVASTATIN (PRAVACHOL) 20 MG TABLET Take 20 mg by mouth nightly. WHEAT DEXTRIN (BENEFIBER DRINK MIX PO) Take by mouth. Powder. 1 by mouth daily as need ed ALLERGIES Allergies Allergen Reactions Naproxen Sodium Nausea And Vomiting Aspirin Vomiting FAMILY HISTORY History reviewed. No pertinent family history. SOCIAL HISTORY History Social History Marital Status: Spouse Name: N/A Number of Children: N/A Years of Education: N/A Social History Main Topics Smoking status: None Smokeless tobacco: None Alcohol Use: No Drug Use: No Sexually Active: Other Topics Concern None Social History Narrative None REVIEW OF SYSTEMS All systems negative except as marked. PHYSICAL EXAM VITAL SIGNS: (first vital signs):Temp: 37.3 C (99.1 F) Pulse: 99 Resp: 15 SpO2: 97 % BP: 176/83 mmHg Constitutional: A little uncomfortable but No Acute distress HENT: Atraumatic, Oropharynx moist, No exudates, Nose normal. Neck Supple, No stridor. Eyes: PERRL, EOMI Chest: Non tender, no deformity Respiratory: Equal, No respiratory distress, No wheezing, No Rhonchi , No rales Cardiovascular: Regular Rate and rhythm, No murmurs, No rubs. GI: Soft, mildly tender in the left mid abdomen but there is no distention and no mass of this time, No pulsatile masses, no palpable hernias, no guarding, no rebound, Normal bowel sounds, Upper Extremities: Equal distal pulses, No edema, No tenderness, No cyanosis, Lower Extremities: Equal pulses, no edema, no tenderness Back: No tenderness, Skin: No erythema, No rash. Lymphatic: No lymphadenopathy. Neurologic: Alert & oriented x 3, Cranial nerves 2-12 intact, Normal upper and lower extre mity motor function, Normal upper and lower extremity sensory function, No focal deficits no elo. Results for orders placed during the hospital encounter of 10/10/13 CBC WITH DIFFERENTIAL Component Value Range WBC 7.0 4.0-11.0 K/uL RBC 4.19 3.70-5.20 M/uL Hgb 13.1 11.5-16.0 g/dL Hct 37.8 34.0-47.0 % MCV 90.1 83.0-101.0 fL MCH 31.2 28.0-35.0 pg MCHC 34.6 32.0-36.0 g/dL RDW 13.7 <15.0 % Platelet Count 183 140-440 K/uL MPV 6.9 % Neutrophils 81.2 45.0-82.0 % % Lymphocytes 8.3 (*) 20.0-45.0 % % Monocytes 8.9 4.0-12.0 % % Eosinophils 0.8 0.0-5.0 % % Basophils 0.8 0.0-1.0 % Absolute Neutrophils 5.70 1.80-8.50 K/uL Absolute Lymphocytes 0.60 0.60-3.20 K/uL Absolute Monocytes 0.60 0.00-1.00 K/uL Absolute Eosinophils 0.10 0.00-0.40 K/uL Absolute Basophils 0.10 0.00-0.10 K/uL COMPREHENSIVE METABOLIC PANEL Component Value Range NA 132 (*) 136-149 mmol/L K 4.1 3.5-5.1 mmol/L CL 98 98-109 mmol/L CO2 25 24-31 mmol/L ANION GAP 9 3-16 mmol/L GLUCOSE 119 (*) 70-109 mg/dL BUN 10 7-18 mg/dL Creatinine, Serum 0.74 0.60-1.30 mg/dL eGFR if not >60 >=60 mL/min/1.73m2 CALCIUM 8.9 8.3-10.5 mg/dL ALBUMIN 4.0 3.2-5.0 g/dL BILIRUBIN TOTAL 1.1 0.1-1.5 mg/dL Total protein 6.2 6.0-7.8 g/dL AST 20 10-42 U/L ALT 14 6-45 U/L ALK PHOS 55 40-110 U/L GLOBULIN 2.2 Albumin/Globulin ratio 1.8 BUN/CREA 13.5 LIPASE Component Value Range LIPASE 26 0-60 U/L POCT URINALYSIS DIPSTICK Component Value Range POC COLOR UA Yellow POC CLARITY UA Clear POC GLUCOSE UA Negative POC BILIRUBIN UA Negative POC KETONES UA 15 mg/dL (*) Negative POC SPECIFIC GRAVITY UA 1.010 POC BLOOD UA Small POC PH UA 7.0 POC PROTEIN UA Negative POC UROBILINOGEN UA 0.2 E.U./dL POC NITRITE UA Negative POC LEUKOCYTE ESTERASE UA Negative RADIOLOGY Formal Radiology Interpretations: Ct Abdomen Pelvis W Contrast 10/10/2013 DISCLAIMER: This is a preliminary report provided by [employer]. A final report is available at [facility]. CT ABDOMEN AND PELVIS WITH CONTRAST CLINICAL INFORMATION: Pain. COMPARISON: CT scan from 06/17/2008 PROCEDURE: Axial images through the abdomen and pelvis after the administration of 80 ml o mnipaque 350 intravenous contrast. Multiplanar reconstructions. FINDINGS: LUNG BASES: Ther e is minimal dependent atelectasis or scarring in both lung bases. Normal heart size. No per icardial effusion. ABDOMEN Liver and Biliary: There is mild common bile duct dilation. Co mmon bile duct is slightly more dilated than the prior study. There is minimal intrahepatic bile duct dilation proximally. Gallbladder surgically absent. No gallstones are identified in the common bile duct. Pancreas, Spleen and Adrenals: No pancreatitis or pancreatic mass. No splenomegaly, splenic mass or splenic hemorrhage. No significant adrenal abnormality. Ki dneys: There is mild bilateral hydronephrosis left greater than right. This is similar comp ared to the prior CT scan and is of questionable significance. No atrophy of the kidneys no renal or ureteral calculi. ABDOMEN AND PELVIS Bowel: The gastroesophageal junction, stomac h, duodenum, small bowel loops, and colon are unremarkable. No appendix visualized. Vessels : There is mild atherosclerosis of the abdominal aorta and iliac vessels. No aneurysm. Lymph Nodes: No adenopathy. Peritoneum and Retroperitoneum: No intraperitoneal free air, ascites or peritoneal mass. No significant retroperitoneal abnormality. PELVIS Genitourinary: Urin edu bladder is within normal limits. Atrophied uterus is unremarkable. BODY WALL Soft Tiss ues: No hernia, mass or hemorrhage. Bones: There is a scoliotic curvature of the lumbar spin e convex to the right. Bones are osteopenic. Multilevel degeneration is seen throughout the lumbar spine. No lytic or blastic bony lesions. No compression fractures. IMPRESSION: 1. No acute findings in the abdomen or pelvis. No inflammatory changes or free fluid. 2. Mi ld bilateral hydronephrosis. This was seen on the prior CT scan from 2008 and is of doubtful significance. No cortical renal atrophy. A nuclear medicine renal scan could be helpful as followup to evaluate for renal function. 3. Mild intrahepatic and extrahepatic bile duct dil ation, progressive since the prior CT scan. This is probably senescent change. Correlation w ith liver function tests recommended for significance. If elevated LFTs ERCP may be helpful as followup. Report sent: 10/10/2013 8:51:00 PM Xr Abd Supine And Upright W 1 Vw Chest 10/10/2013 THREE VIEWS CHEST AND ABDOMEN 10/09/2013 8:00 PM CLINICAL HISTORY: ABDOMINAL MAS S COMPARISON: CT ABDOMEN AND PELVIS JUNE 17, 2008, CHEST RADIOGRAPH DECEMBER 11, 2007 FIND INGS: CHEST: Calcification and tortuosity of the thoracic aorta persist. There is similar cardiomegaly. Mediastinum and pulmonary vasculature are otherwise unremarkable. The lungs appear somewhat hyperinflated and demonstrate stable, mild basilar reticular opacity. The u pper lung brown are clear. No pneumothorax or pleural effusion is visible. There is gener alized osteopenia with chronic compression deformity of a lower thoracic vertebral body and multilevel spondylosis. ABDOMEN: Gas and average stool are visible within nondilated colon. No dilated bowel or free air is visible. No obvious mass effect on the visible bowel is i dentified. No abnormal calcification is evident. Prominent rightward lower thoracic and ger mbar curvature persists and there is multilevel degenerative disc disease and spondylosis. IMPRESSION - 1. NO EVIDENCE OF BOWEL OBSTRUCTION OR OBVIOUS MASS EFFECT. CONSIDER FOLLOW- UP CROSS-SECTIONAL IMAGING. 2. 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 MILD BASILAR RETICULAR OPACITY IS CHRONIC AND FAVORS ATELEC TASIS/FIBROTIC CHANGE. 3. OSTEOPENIA, SCOLIOSIS AND CHRONIC LOWER THORACIC COMPRESSION FRA CTURE. Dictated and Signed by: Von Bush MD Electronically signed: 10/10/2013 1:56 PM ED COURSE & MEDICAL DECISION MAKING Last Set of Vital Signs: Temp: 37.3 C (99.1 F) Pulse: 96 Resp: 15 SpO2: 95 % BP: 146/ 65 mmHg Pertinent Labs & Imaging studies reviewed. (See chart for details) Nursing notes and prior records are reviewed The patient's pain and the swelling of mostly resolved again by the time they arrived in [facility] emergency department. The difference between today's episode and yesterday's episode is t hat she had pain associated with it. I therefore initiated a workup and CT. Patient had an IV started was given a little pain medicine and did well. By the time of her discharge she is feeling well. She did ask for some pain medicine because she's run out of her hydrocodo ne. He took her last pill earlier tonight. Her labs and CT are unremarkable. There is no sign of hernia. There is no sign of intra-abdominal mass. She has some chronic changes but nothing acute. My suspicion is still that this is a area of gas collecting in the splenic flexure of the colon causing distention and then a decompressive before she gets her period I don't think it's a hernia at this point. This time her symptoms have resolved renal or go home and have her followup with her physician. FINAL IMPRESSION 1. Abdominal pain 2. I think this likely is gas distention of the splenic flexure of the colon. Plan: Follow-up Information Call John Del Cid MD. (Saturday) Contact information: [address] [place] [address] New Prescriptions HYDROCODONE-ACETAMINOPHEN (NORCO) 5-325 MG PER TABLET Take 0.5-1 tablets by mouth every 4 hours as needed for Pain. Discharge Instructions Continue your usual medications and bowel regimen Take hydrocodone if needed for pain Call your Dr. Saturday Portions of this chart have been created with [employer] voice recognition software. Occasiona l wrong-word or sound-alike substitutions may have occurred due to the inherent limita tions of voice recognition software. Please read the chart carefully and recognize, using co ntext, where these substitutions have occurred. Armin Berger MD 10/10/13 2[facility] encounter Miscellaneous Notes Plan of Care - [facility] - 10/12/2013 12:00 AM PDT D Triage Notes - Tatyana Bender RN - 10/10/2013 7:30 PM PDTP t c/o of LLQ pain since yesterday morning. She was here last night and saw dr. Berger. She i s here for some more pain meds until she can get in to see the dr on Saturday. documented in this encounter Plan of Treatment [...] | 1.010 | | | | | [place], | | | | | | UA, [...] T12 VERTEBRAL BODY COMPARED WITH STUDIES FROM 2009, BUT OTHERWISE OF | | | UNCERTAIN ACUITY. 5. SIMILAR PROMINENT, SERPIGINOUS VESSELS IN | | | THE LEFT PELVIC CAVITY, WHICH MAY BE SEEN WITH PELVIC CONGESTION | | | SYNDROME. Preliminary results of this study were reported to the | | | ER staff by the [facility] radiologist on October 10, 2013 at [...] acuity. There is posterior vertebral spondylosis at [id number] level, contributing to at | | least [...] COMPRESSION DEFORMITY OF THE INFERIOR | | [id number] BODY COMPARED WITH STUDIES FROM 2009, BUT OTHERWISE OF UNCERTAINACUITY.5. | | SIMILAR PROMINENT, SERPIGINOUS VESSELS IN THE LEFT PELVIC CAVITY, WHICH MAYBE SEEN WITH | | PELVIC CONGESTION SYNDROME.Preliminary results of this study were reported to the ER | | [facility] on October 10, 2013 at 1 hours.Dictated [...] reported to the ER staff by the [facility] | |radiologist on October 10, 2013 at 2051 hours. | | | |Dictated and Signed by: Von Bush MD | | Electronically signed: 10/11/2013 12:19 PM | + + + +---------+ + + | Performing | Address | City/State/Zipcode | Phone Number | | Organization | | | | + +---------+ + + | MISCELLANEOUS LAB | | | [phone] | + +---------+ + + | MISCELANIOUS LAB | | | [phone] | + +---------+ + + Lipase (10/10/2013 [...] [address] | [place] | [phone] | | [facility] | | [address] | | | - LABORATORY | | | | + + + + + | [facility] | [address] | [place] | | | [facility] | | [address], [facility] | | | - LABORATORY | [...] mL/min/1.73m2 | [facility] | | | [place] | RATE,ESTIMATED | | MEDICAL | | | | mL/min/1.42c2Rmld than | | CENTER - | | [...] | 8.9 | 8.3 - 10.5 | [facility] | | | | | mg/dL | [facility] | | | | | | MEDICAL | | | | | | CENTER - | | | | | | LABORATORY | | + + + + + + | Albumin | 4.0 | 3.2 - 5.0 g/dL | [facility] | | | | | [...] + | [facility] | [address] | [place] | [phone] | | [facility] | | [address] | | | - LABORATORY | | | | + + + + + | [facility] | [address] | [place] | | | [facility] | | [address], [facility] | | | - LABORATORY | | | | + + + + + CBC with Differential (10/10/2013 8:00 PM PDT) + +---------+ + + + | Component | Value | Ref Range | Performed | Pathologist | | | | | At | Signature | + +---------+ + + + | White Blood | 7.0 | 4.0 - 11.0 K/uL | [facility] | | | Cells | | | [facility] | | | | | | MEDICAL | | | | | | CENTER - | | | | | | LABORATORY | | + +---------+ + + + | Red Blood | 4.19 | 3.70 - 5.20 | [facility] | | | Cells | | M/uL | [facility] | | | | | | MEDICAL [...] | Neutrophils | | K/uL | [facility] | [...] | Eosinophils | | K/uL | [facility] | [...] + | [facility] | [address] | [place], [place] | [phone] | | [facility] | | [address] | | | - LABORATORY | | | | + + + + + | [facility] | [address] | [place], [place] | | | [facility] | | [address] [place] [address] | | | - LABORATORY | | [...]
--- OUTSIDE RECORDS SUMMARY | ~2019-09-04 | XMS | Encounter Summary ---
Demographics + + + | Address | [address] | | | [place] [address] | + + + | Home Phone | | + + + | Preferred Language | Unknown | + + + | Marital Status | | + + + | Confucianism Affiliation | [id number] | + + + [...] [place] | | | | | [address] | | + + + + + Care Team Providers + +------+ + | Care Catering Coordinator Name | Role | Phone | [...] + + | 10/09/ | Emergency | [facility] | Armin Berger | Gas (Primary Dx) | | 2013 | | [facility] | MD Chris [address] | | | | | CENTER [address] | [facility] | | | | | [place], [place] | [place] [address] | | | | | [address] | [phone] | | | | | [phone] | | | +--------+ + + + [...] +---------+--------+ + documented as of this encounter ED Notes Chaz Wynne RN - 10/09/2013 8:31 PM PDTPt discharged from the er ambulatory with leonardo santos,. Instructions given to pt both verbally and in witting,. rmin Berger MD - 10/09/2013 7:[address] [facility] Mariama Love Emergency Department Encounter Note [address] [place] [address] PCP:John Del Cid [phone] eMERGENCY dEPARTMENT eNCOUnter CHIEF COMPLAINT Chief Complaint Patient presents with Abdominal Mass left HPI Mariama Love is a 83 y.o. female who presents for evaluation of a lump that appeared i n her left abdomen earlier tonight. She was sitting at the time. It wasn't painful but she does notice it poking out the left side of the abdominal wall. She went and laid down and it went away. Family members brought her in for evaluation. At this time laying flat she do esn't have anymore. She denies any prior history of anything like this before. She is havi ng normal bowel movements. She has had a lot of gas. She's not had fever. No vomiting. N o pain. She has had multiple abdominal operations. PAST MEDICAL HISTORY Past Medical History Diagnosis [...] as need ed ALLERGIES Allergies Allergen Reactions Aspirin Vomiting FAMILY HISTORY No family history on file. SOCIAL HISTORY History Social History Marital Status: Spouse Name: N/A Number of Children: N/A Years of Education: N/A Social History Main Topics Smoking status: Not on file Smokeless tobacco: Not on file Alcohol Use: Drug Use: Sexually Active: Other Topics Concern Not on file Social History Narrative No narrative on file REVIEW OF SYSTEMS All systems negative except as marked. PHYSICAL EXAM VITAL SIGNS: (first vital signs):Temp: 37.5 C (99.5 F) Pulse: 82 Resp: 18 SpO2: 96 % BP: 138/90 mmHg Constitutional: No Acute distress HENT: Atraumatic, Oropharynx moist, No exudates, Nose normal. Neck Supple, No stridor. Eyes: PERRL, EOMI Chest: Non tender, no deformity Respiratory: Equal, No respiratory distress, No wheezing, No Rhonchi , No rales Cardiovascular: Regular Rate and rhythm, No murmurs, No rubs. GI: Soft, Nontender, multiple surgical scars, Non distended, No masses, No pulsatile brent s, no apparent hernias, no guarding, no rebound, Normal bowel sounds, Upper Extremities: Equal distal pulses, No edema, No tenderness, No cyanosis, Lower Extremities: Equal pulses, no edema, no tenderness RADIOLOGY X-ray shows significant scoliosis and normal bowel gas the colon is shifted from the midlin e with the spike flexure the right against the abdominal wall on the left side. No sign of obstruction. ED COURSE & MEDICAL DECISION MAKING Last Set of Vital Signs: Temp: 37.5 C (99.5 F) Pulse: 82 Resp: 18 SpO2: 96 % BP: 138/ 90 mmHg Pertinent Labs & Imaging studies reviewed. (See chart for details) Nursing notes and prior records are reviewed I had the patient managing consultant the room and can't appreciate any obvious hernia in the left abd omen. She does have a little more protuberance on the left side but she has a lot of scarri ng on the right side of the abdomen making her abdomen asymmetrical anyway. She's had no pa in associated with the appearance of this lump at home and it went away when she laid down s uggesting that this was most likely a hernia. The patient's x-rays really isn't remarkable other than they: His right hip in the area where she had the bulging earlier. I suspect lien t she had gas but distended the colon at the splenic flexure causing what they saw and is re solved spontaneously. There is no sign of a volvulus or obstruction. I don't see clinical signs of a hernia. FINAL IMPRESSION 1. Gas Plan: Follow-up Information Follow up with [facility]. (As needed) Contact information: [address] [place] [address] Discharge Instructions I don't see signs of a hernia at this time If this happens again, the bulging area becomes painful and will go away return right away If it happens again but the bulge is not painful and goes away easily he don't need to come in Okay to continue your usual medications Portions of this chart have been created with [employer] voice recognition software. Occasiona l wrong-word or sound-alike substitutions may have occurred due to the inherent limita tions of voice recognition software. Please read the chart carefully and recognize, using co ntext, where these substitutions have occurred. Armin Berger MD 10/09/132023 doc umented in this encounter Miscellaneous Notes Plan of Care - NICK SCAN WATN - 10/12/2013 12:00 AM PDT D Triage Notes - Chaz [place] RN - 10/09/2013 7:21 PM P DTPt presents co left abd swelling that happened suddenly tonight. Pt denies pain no N/V. Pt taking vicodin for chronic back pain. Electronically signed by Chaz [place] RN at 7:25 PM PDTdocumented in this encounter Plan of Treatment Not [...] + | MISCELLANEOUS LAB | | | [phone] | + +---------+ + + | MISCELANIOUS LAB | | | [phone] | + +---------+ + + documented in this encounter Visit Diagnoses + + | Diagnosis | + + | Gas - Primary Flatulence, eructation, and gas pain | + + documented in this encounter
--- OUTSIDE RECORDS SUMMARY | ~2019-09-04 | XMS | Encounter Summary ---
Demographics + + + | Address | [address] | | | [place] [address] | + + + | Home Phone | | + + + | Preferred Language | Unknown | + + + | Marital Status | | + + + | Congregational Affiliation | [id number] | + + + | Race | Unknown | + + + | Ethnic Group | Unknown | + + + Author + + + | Author | [facility] | | | and [place] | + + + | Organization | [facility] | | [...] [place] | | | | | [address] | | + + + + + Care Team Providers + +------+ + | Care Meat Clerk Name | Role | Phone | + +------+ + PCP | Unavailable | + +------+ + Encounter Details +--------+ + + + + | Date | Type | Department | Care Team | Description | +--------+ + + + + | 04/30/ | Hospital | [facility] | | | | 2008 - | Encounter | [facility] | | | | | | CENTER [address] | | | | 05/25/ | | [place] | | | | 2008 | | [address] | | | | | | [phone] | | | +--------+ + + + [...]
--- OUTSIDE RECORDS SUMMARY | ~2019-09-04 | XMS | Encounter Summary ---
Demographics + + + | Address | [address] | | | [place] [address] | + + + | Home Phone | | + + + | Preferred Language | Unknown | + + + | Marital Status | | + + + | Roman Catholic Affiliation | 1077 | + + + | Race | Unknown | + + + | Ethnic Group | Unknown | + + + Author + + + | Author | [facility] | | | and [place] | + + + | Organization | [facility] | | [...] [place] | | | | | [address] | | + + + + + Care Team Providers + +------+ + | Care Animal Husbandry Manager Name | Role | Phone | + +------+ + PCP | Unavailable | + +------+ + Encounter Details +--------+ + + + + | Date | Type | Department | Care Team | Description | +--------+ + + + + | 02/09/ | Hospital | [facility] | | | | 2010 - | Encounter | [facility] | | | | | | CENTER [address] | | | | 02/24/ | | [place] | | | | 2010 | | [address] | | | | | | [phone] | | | +--------+ + + + [...] as of this encounter Progress Notes Baldomero oYrk MD - 02/09/2011 1:08 AM PSTDATE: 02/09/2011 [...] in 6 months for further followup. The juan t was agreeable to this plan. DICTATED BY: Baldomero York MD Radiation Oncology JOB #: [id number] EXT JOB #:[id number] cc: MD Henri Sagastume MD S. Maynard Bronstein, MD, PHD <Electronically Signed by Baldomero York MD> 02/25/11 0945 documented in this encounter Plan of Treatment Not on filedocumented as of this encounter Visit Diagnoses Not on filedocumented in this encounter"
--- OUTSIDE RECORDS SUMMARY | ~2019-09-04 | XMS | Encounter Summary ---
Demographics + + + | Address | [address] | | | [place] [address] | + + + | Home Phone | | + + + | Preferred Language | Unknown | + + + | Marital Status | | + + + | Oriental Orthodox Affiliation | 1077 | + + + | Race | Unknown | + + + | Ethnic Group | Unknown | + + + Author + + + | Author | [facility] | | | and [place] | + + + | Organization | [facility] | | | [...] [place] | | | | | [address] | | + + + + + Care Team Providers + +------+ + | Care Government Affairs Manager Name | Role | Phone | + +------+ + PCP | Unavailable | + +------+ + Encounter Details +--------+ + + + + | Date | Type | Department | Care Team | Description | +--------+ + + + + | 01/19/ | Hospital | [facility] | Amanda Lombardo | | | 2008 | Encounter | MED CTR EMERGENCY | MD [address] | | | | | [place] [address] | [facility], | | | | | [place], [place] | [place] [address] | | | | | [address] | [phone] | | | | | [phone] | | | +--------+ + + + [...]
--- OUTSIDE RECORDS SUMMARY | ~2019-09-04 | XMS | Encounter Summary ---
Demographics + + + | Address | [address] | | | [place] [address] | + + + | Home Phone [...] Author | [facility] | | | and [place] | + + + | Organization | [facility] | | | and [...] [place] | | | | | [address] | | + + + + + Care Team Providers + +------+ + | Care Assembly Riveter Name | Role | Phone | + +------+ + PCP | Unavailable | + +------+ + Encounter Details +--------+ + + + + | Date | Type | Department | Care Team | Description | +--------+ + + + + | 06/25/ | Hospital | [facility] | | | | 2008 - | Encounter | MED CTR CANCER | | | | | | CENTER [address] | | | | 07/25/ | | [place] | | | | 2008 | | [address] | | | | | | [phone] | | | +--------+ + + + [...]
--- OUTSIDE RECORDS SUMMARY | ~2019-09-04 | XMS | Encounter Summary ---
Demographics + + + | Address | [address] | | | [place] [address] | + + + | Home Phone | | + + + | Preferred Language | Unknown | + + + | Marital Status | | + + + | Sabianism Affiliation | 1077 | + + + | Race | Unknown | + + + | Ethnic Group | Unknown | + + + Author + + + | Author | [facility] | | | and [place] | + + + | Organization | [facility] | | | and [place] | + + + | Address | Unknown | + + + | Phone | Unavailable | + + + Support + + + + + | Name | Relationship | Address | Phone | + + + + + | Scar Deleon | ECON | [address] | | | | | [place] | | | | | [address] | | + + + + + Care Team Providers + +------+ + | Care Manager Area Name | Role | Phone | + +------+ + PCP | Unavailable | + +------+ + Encounter Details +--------+ + + + + | Date | Type | Department | Care Team | Description | +--------+ + + + + | 01/01/ | Hospital | [facility] | | | | 2007 - | Encounter | [facility] | | | | | | CENTER [address] | | | | 01/24/ | | [place] | | | | 2007 | | [address] | | | | | | [phone] | | | +--------+ + + + [...]
--- OUTSIDE RECORDS SUMMARY | ~2019-09-04 | XMS | Encounter Summary ---
Demographics + + + | Address | [address] | | | [place] [address] | + + + | Home Phone | | + + + | Preferred Language | Unknown | + + + | Marital Status | | + + + | Adventism Affiliation | 1077 | + + + | Race | Unknown | + + + | Ethnic Group | Unknown | + + + Author + + + | Author | [facility] | | | and [place] | + + + | Organization | [facility] | | | [...] | [place] | | | | | [address] | | + + + + + Care Team Providers + +------+ + | Care Slot Shift Manager Name | Role | Phone | + +------+ + | No, Unknownpcp | PCP | | + +------+ + Encounter Details +--------+ + + + + | Date | Type | Department | Care Team | Description | +--------+ + + + + | 04/22/ | Abstract | [place] [facility] | [facility] | | | 2013 | | Conversion Location | MD [address] | | | | | [address] | [facility] | | | | | [place], [place] | [place] [address] | | | | | [address] | [phone] | | | | | [phone] | | | +--------+ + + + [...]
--- OUTSIDE RECORDS SUMMARY | ~2019-09-04 | XMS | Encounter Summary ---
Demographics + + + | Address | [address] | | | [place] [address] | + + + | Home Phone [...] [place] | | | | | [address] | | + + + + + Care Team Providers + +------+ + | Care Dinkey Driver Name | Role | Phone | + +------+ + PCP | Unavailable | + +------+ + Encounter Details +--------+ + + + + | Date | Type | Department | Care Team | Description | +--------+ + + + + | 10/07/ | Hospital | [facility] | | | | 2009 - | Encounter | MED CTR CANCER | | | | | | CENTER [address] | | | | 10/25/ | | [place] | | | | 2009 | | [address] | | | | | | [phone] | | | +--------+ + + + [...]
--- OUTSIDE RECORDS SUMMARY | ~2019-09-04 | XMS | Encounter Summary ---
Demographics + + + | Address | [address] | | | [place] [address] | + + + | Home Phone | | + + + | Preferred Language | Unknown | + + + | Marital Status | | + + + | Sikhism Affiliation | 1077 | + + + | Race | Unknown | + + + | Ethnic Group | Unknown | + + + Author + + + | Author | [facility] | | | and [place] | + + + | Organization | [facility] | | [...] [place] | | | | | [address] | | + + + + + Care Team Providers + +------+ + | Care Early Childhood Assistant Name | Role | Phone | + +------+ + PCP | Unavailable | + +------+ + Encounter Details +--------+ + + + + | Date | Type | Department | Care Team | Description | +--------+ + + + + | 10/27/ | Hospital | [facility] | | | | 2008 - | Encounter | MED CTR CANCER | | | | | | CENTER [address] | | | | 11/24/ | | [place] | | | | 2008 | | [address] | | | | | | [phone] | | | +--------+ + + + [...]
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
--- OUTSIDE RECORDS SUMMARY | ~2019-09-04 | XMS | Encounter Summary ---
Demographics + + + | Address | [address] | | | [place] [address] | + + + | Home Phone | | + + + | Preferred Language | Unknown | + + + | Marital Status | | + + + | Jewish Affiliation | 1077 | + + + [...] [place] | | | | | [address] | | + + + + + Care Team Providers + +------+ + | Care Master Lay Out Specialist Name | Role | Phone | + +------+ + PCP | Unavailable | + +------+ + Encounter Details +--------+ + + + + | Date | Type | Department | Care Team | Description | +--------+ + + + + | 01/25/ | Hospital | [facility] | | | | 2007 - | Encounter | MED CTR CANCER | | | | | | CENTER [address] | | | | 02/24/ | | [place] | | | | 2007 | | [address] | | | | | [phone] | | | +--------+ + + + [...]
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
[2019-09-04] MEDS ORDERED: KEFLEX500 MG PO (20:15)
--- NOTE | 2019-09-05 09:14 | EKG ---
[facility] [address] [place], [place] [address] Signed Sinus tachycardia Otherwise normal ECG No previous ECGs available Confirmed by FRANKI TRIANA MD ([id number]) on 09/05/2019 9:13:57 AM Electronically Signed By: FRANKI TRIANA MD 09/05/19 0914 PATIENT NAME: TATYANA ROLAND Electrocardiogram DATE OF : 32 PHYSICIAN: FRANKI TRIANA MD REPORT #: [id number] REPORT IS CONFIDENTIAL AND NOT TO BE RELEASED WITHOUT AUTHORIZATION
== END 2019-09-04 21:12 | disposition home or self-care (01) ==
LOC: ED 16:10
DX: R10.9 Unspecified abdominal pain (principal); I10 Essential (primary) hypertension; Z88.8 Allergy status to other drugs, medicaments and biological substances; Z88.6 Allergy status to analgesic agent; Z79.899 Other long term (current) drug therapy
CPT/HCPCS: 74177; 80053; 81001; 83605; 83690; 85025; 87077; 87088; 87186; 93005; 93010; 96361; 96375; 99284-25; J0696; J2270; J2405; J7121; Q9967

== ENCOUNTER 2020-08-12 13:06 | Observation (INO) | payer MEDICARE, OTHER ==
[~2020-08-12] VITALS: Ht 157.5 cm; Wt 60.7 kg
[~2020-08-12 13:06] MED LIST changes: -CALCIUM + D SO1 EACH PO; +CALCIUM PLUS M1 EAC1 PO; +KEFLEX500 MG PO; -MULTIVITAMINS1 EAC7 PO; +MULTIVITAMINS1 EAC8 PO
[2020-08-12] MEDS ORDERED: LOPERAMIDE2 MG PO (14:19)
[2020-08-12] MEDS ORDERED: QUETIAPINE FUMA25 MG PO (14:20)
[2020-08-12] MEDS ORDERED: ARICEPT10 MG PO (14:22)
[2020-08-12] MEDS ORDERED: OMEPRAZOLE20 MG PO (14:24)
--- NOTE | 2020-08-12 18:40 | NUR ---
Patient arrives to room 109 via stretcher with Juan F Borges RN/Nurse ethylbenzene cracking supervisor. Scoots self from stretcher to bed. Vitals obtained. Assist to bathroom, continent of urine. Brief changed due to smearing of blood noted.
--- NOTE | 2020-08-12 19:00 | NUR ---
SHIFT REPORT RECEIVED FROM GALE GARCIA. PT VISITING WITH FAMILY IN ROOM.
--- NOTE | 2020-08-12 22:00 | NUR ---
ASSESSMENT COMPLETED. GCS 15, A&O TO ALL BUT DATE. LUNGS CLEAR, HEART TONES IRREGULAR. ABD SOFT, NONTENDER, BOWEL TONES ACTIVE, PT STATES NORMAL. CMS INTACT. PT DENIES ALL PAIN AT THIS TIME. LEFT ELBOW HAS HEALING SCAB. UPPER LEFT ARM HAS BRUISING THAT APPEARS TO BE FROM BP CUFF. SCATTERED BRUISING NOTED. RECTAL AREA RED, BARRIER CREAM APPLIED, OPEN TO AIR. IV WNL, CDI, FLUSHED WELL. IV FLUIDS INFUSING PER ORDER. NO OTHER NEEDS AT THIS TIME. RAILS UP, BED ALARM ON, CALL LIGHT IN REACH.
--- NOTE | 2020-08-12 23:20 | NUR ---
PT RESTING IN BED, RR EVEN, UNLABORED. IV FLUIDS INFUSING PER ORDER. CALL LIGHT IN REACH.
--- NOTE | 2020-08-12 23:48 | NUR ---
PT UP TO BR. PT INCONTINENT OF URINE AND LIQUID STOOL. PT ALSO HAD 300ML URINE AND 100ML OF LIQUID, RED TINTED STOOL. PT DENIES PAIN. BACK TO BED, IV FLUIDS INFUSING PER ORDER. RAILS UP, BED ALATM ON, CALL LIGHT IN REACH.
--- NOTE | 2020-08-13 02:47 | NUR ---
SSESSMENT, VS AND I&O COMPLETED. IV WNL. BUTTOCKS REDNESS UNCHANGED. LEFT ARM BRUSING AND SCAB UNCHANGED. LUNGS CLEAR, HEART TONES IRREGULAR. WARM BLANKET PROVIDED. NO OTHER NEEDS. CALL LIGHT IN REACH.
--- NOTE | 2020-08-13 05:37 | NUR ---
PT UP TO BR AND BACK TO BED. PT HAS HAD SEVERAL EPISODES OF LOOSE STOOL, IMMODIUM PROVIDED. VS AND I&O COMPLETED. PT DENIES PAIN. NO OTHER NEEDS AT THIS TIME. CALL LIGHT IN REACH, BED ALARM ON.
--- NOTE | 2020-08-13 07:30 | NUR ---
REPORT RECIEVED FROM JOSE POWELL. PT RESTING IN BED W/ EYES CLOSED RESPIRATIONS EVEN AND UNLABORED, CALL LIGHT IN REACH.
--- NOTE | 2020-08-13 07:30 | NUR ---
THIS PROCESSING MGR WENT IN THE ROOM TO OFFER WARM WASHCLOTH AND CLEAN UP ROOM. PATIENT GOT UP USED THE RESTROOM AND WENT TO THE CHAIR FOR BREAKFAST. PATIENT IS IN THE CHAIR WITH WARM BLANKET, CALL LIGHT IN REACH. NO FURTHER NEEDS AT THIS TIME.
--- NOTE | 2020-08-13 10:00 | NUR ---
PT SITTING UP IN CHAIR W/ CALL LIGHT IN REACH. FRESH ICE WATER GIVEN AT PT REQUEST. NO OTHER NEEDS AT THIS TIME.
[2020-08-13] MEDS ORDERED: SERTRALINE HCL50 MG PO (10:54)
--- NOTE | 2020-08-13 10:55 | NUR ---
MED REC COMPLETE
--- NOTE | 2020-08-13 12:00 | NUR ---
PT SITTING UP IN CHAIR SAFELY W/ CALL LIGHT IN REACH, EATING LUNCH. NO NEEDS AT THIS TIME.
--- NOTE | 2020-08-13 14:00 | NUR ---
PT ASSISTED TO BR 1PA SBA W/ CANE, PT VOIDED AND THEN ASSISTED BACK TO CHAIR. FRESH ICE WATER GIVEN PER REQUEST. NO OTHER NEEDS AT THIS TIME.
--- NOTE | 2020-08-13 16:21 | NUR ---
Assist to bathroom, continent of urine. Returns to recliner. IV fluids completed, IV converted to SL per orders. Denies other needs. Call light in reach.
--- NOTE | 2020-08-13 18:15 | NUR ---
PT UP IN CHAIR FOR ENTIRE SHIFT, BLOODY LOOSE STOOL OFF AND ON, BARRIER CREAM APPLIED TO BUTTOCKS REGION, IV FLUIDS DC'd, ADVANCED TO REGULAR DIET PT TOLERATING WELL. 1PA SBA W/ CANE TO BR. PT IS FORGETFULL BUT USES CALL LIGHT APPROPRAITELY, DOES NOT ATTEMPT TO SELF TRANSFER.
--- NOTE | 2020-08-13 19:00 | NUR ---
BEDSIDE REPORT RECEIVED FROM OFFGOING RN'S GALE AND CLIFF. PT UP TO BATHROOM AND TUCKED INTO BED FOR THE NIGHT. PT DENIES FURTHER NEEDS. CALL LIGHT IN REACH.
--- NOTE | 2020-08-13 20:20 | NUR ---
PT ASSESSMENT COMPLETE. PT STATES THAT PAIN IS WELL CONTROLLED AFTER EARLIER DOSE OF TYLENOL. DENIES NAUSEA OR SOB. HR IRREGULAR. BT'S ACTIVE, ABD NONTENDER. ATTENDS IN PLACE FOR INCONTINENCE. IV FLUSHED, WNL. SCHEDULED MEDS ADMINISTERED. PT STATES THAT SHE IS READY FOR BED. DENIES FURTHER NEEDS AT THIS TIME. CALL LIGHT IN REACH.
--- NOTE | 2020-08-13 22:28 | NUR ---
CALL LIGHT ANSWERED. PT UP TO BR WITH SBA AND CANE TO VOID. GAIT STEADY. BACK TO BED, ANKITA WELL. NO FURTHER NEEDS. CALL LIGHT IN REACH.
--- NOTE | 2020-08-13 23:50 | NUR ---
PT RESTING IN BED WITH EYES CLOSED. RESPIRATIONS EVEN AND UNLABORED. PT SNORING AUDIBLY, DOES NOT WAKE WHILE PRINT DESIGNER AT DOORWAY. CALL LIGHT IN REACH.
--- NOTE | 2020-08-14 01:54 | NUR ---
PT UTILIZES CALL LIGHT, PIG BREEDER TO ROOM. PT IS CONFUSED ABOUT WHERE SHE IS. STATES "WHO IS GOING TO TAKE ME OVER TO THE HOSPITAL." PT REORIENTS EASILY. PT ASSESSMENT COMPLETE. PT DENIES PAIN, NAUSEA, OR SOB. PT UP TO BATHROOM AND BACK TO BED WITH SBA AND CANE. PT HAD EXTRA SMALL BM. PT DENIES FURTHER NEEDS. EXPRESSES GRATITUDE THAT SHE IS STILL IN THE HOSPITAL. CALL LIGHT IN REACH.
--- NOTE | 2020-08-14 05:04 | NUR ---
PT UTILIZES CALL LIGHT, REQUESTS TO USE THE BATHROOM. UP TO BATHROOM AND BACK TO BED WITH 1 PA AND CANE, TOLERATED WELL. DENIES FURTHER NEEDS. CALL LIGHT INR EACH.
--- NOTE | 2020-08-14 07:12 | NUR ---
REPORT RECEIVED FROM JOSE ESPANA. PT DENIES PAIN AND NAUSEA. STAND BY ASSIST UP TO RESTOOM. PT VOIDS 100ML YELLOW URINE AND HAS SMALL LOOSE BOWEL MOVMENET. BRANDYN CARE PERFORMED BY PT. DEPENDS IN PLACE. STAND BY ASSIST UP TO CHAIR FOR BREAKFAST. PT DENIES ADDITIONAL REQUESTS OR COMPLAINTS. CALL LIGHT WITHIN REACH.
--- NOTE | 2020-08-14 08:29 | NUR ---
PT CALL LIGHT ON. THIS RN TO ROOM. PT REQUESTS ASSISTANCE UP TO RESTROOM. STAND BY ASSIST WITH CANE UP TO RESTROOM. SMALL INCONTINANT STOOL NOTED. DEPENDS CHANGED. BRANDYN CARE DONE, REDNESS NOTED TO COCCYX, BARRIER CREAM APPLIED. PT HAS SMALL LOOSE BOWEL MOVMENT AND VOIDS 75ML WITHOUT ISSUE. STAND BY ASSIST BACK TO CHAIR. FOCUSED ASSESSMENT DONE: BOWEL TONES ACTIVE. DIARRHEA CONTINUES WITH LOOSE STOOL NOTED. NO BLOOD NOTED IN STOOL, BOWEL MOVEMENTS ALCAZAR WITH PARTICLES OF UNDIGESTED FOOD. PT REPORTS FREQUENCY WITH STOOL AND NEED TO USE RESTROOM. ABDOMEN SOFT AND NON DISTENDED. PT ANTICIPATING DISCHARGE HOME. NO ADDITIONAL REQUESTS OR COMPLAINTS. CALL LIGHT WITHIN REACH.
--- NOTE | 2020-08-14 09:28 | NUR ---
Called and spoke to Scar, son, and [facility], states he will be in to pick her up this morning.
--- NOTE | 2020-08-14 09:32 | NUR ---
PT READY FOR DISCHARGE. PT DRESSED WITH 1 PERSON ASSIST. IV DC'D PER PROTOCOL. GAUZE AND COBAN APPLIED, TIP INTACT. VITAL SIGNS STABLE. DISCHRAGE INSTRUCTIONS REVIEWED WITH PT, PT VERBALIZES UNDERSTANDING AND STATES HER SON AND HER CAREGIVER, CARLYN, WILL ASSIST HER WITH MEDICAITONS AND FOLLOW UP APPOINTMENTS. PT UP TO CHAIR. CALL LIGHT WITHIN REACH. PT AWAITING [place], HER SON, TO ARRIVE AND TRANSPORT HER HOME. NO ADDITIONAL REQUESTS OR COMPLAINTS AT THIS TIME.
--- NOTE | 2020-08-14 10:00 | NUR ---
CARLYN, PTS CAREGIVER CALLED. DAVIDE ON PLAN OF DISCHRAGE AND DISCHARGRE INSTRUCTIONS REIVEWED WITH CARLYN. CARLYN STATES HER QUESTIONS HAVE BEEN ANSWERED.
--- NOTE | 2020-08-14 10:15 | NUR ---
PTS SON ARRIVED TO TRANSPORT PT HOME. PT TRANSFERS SELF TO WHEELCHAIR WITH STAND BY ASSIST AND USE OF CANE. BELONGINGS RETURNED TO PT. PT WHEELED FROM MED/SURG BY JOSE CORONADO. NO ADDITIONAL REQUESTS OR COMPLAINTS.
== END 2020-08-14 10:15 | disposition home or self-care (01) ==
LOC: ED 13:06 → MS 13:08
PROVIDERS: ADMIT Internal Medicine; ATTEND Internal Medicine
DX: K62.7 Radiation proctitis (principal); D62 Acute posthemorrhagic anemia; Z85.048 Personal history of other malignant neoplasm of rectum, rectosigmoid junction, and anus; I10 Essential (primary) hypertension; G30.9 Alzheimer's disease, unspecified; F02.80 Dementia in other diseases classified elsewhere, unspecified severity, without behavioral disturbance, psychotic disturbance, mood disturbance, and anxiety; M19.90 Unspecified osteoarthritis, unspecified site; Z66 Do not resuscitate; Z88.6 Allergy status to analgesic agent; Y84.2 Radiological procedure and radiotherapy as the cause of abnormal reaction of the patient, or of later complication, without mention of misadventure at the time of the procedure; Z20.822 Contact with and (suspected) exposure to COVID-19
CPT/HCPCS: 36415; 74177; 80048; 80053; 83735; 85025; 85610; 86850; 86900; 86901; 96374; 96376; 99285-25; C9113; C9803; G0378; J7121; Q9967; U0003

== ENCOUNTER 2021-03-26 12:11 | Emergency (ER) | payer MEDICARE, OTHER ==
[~2021-03-26] VITALS: Ht 157.5 cm; Wt 60.3 kg
[~2021-03-26 12:11] MED LIST changes: +ARICEPT10 MG PO; +LOPERAMIDE2 MG PO; +OMEPRAZOLE20 MG PO; +QUETIAPINE FUMA25 MG PO; +SERTRALINE HCL50 MG PO
[2021-03-26] MEDS ORDERED: CEPHALEXIN500 MG PO (13:21)
== END 2021-03-26 13:43 | disposition home or self-care (01) ==
LOC: ED 12:11
DX: S81.812A Laceration without foreign body, left lower leg, initial encounter (principal); L08.9 Local infection of the skin and subcutaneous tissue, unspecified; Z85.048 Personal history of other malignant neoplasm of rectum, rectosigmoid junction, and anus; I10 Essential (primary) hypertension; M19.90 Unspecified osteoarthritis, unspecified site; Z88.8 Allergy status to other drugs, medicaments and biological substances; Z88.5 Allergy status to narcotic agent; Z79.899 Other long term (current) drug therapy; W22.8XXA Striking against or struck by other objects, initial encounter
CPT/HCPCS: 99283; A9270